=== PATIENT | female | born 1980 | race Caucasian/White ===

== ENCOUNTER 2023-12-12 10:52 | Outpatient (OUT) | payer OTHER, SELFPAY ==
--- NOTE | 2023-12-12 11:10 | ECG_ITS ---
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
--- NOTE | 2023-12-12 11:20 | PM.PRESUREVA ---
History of Present Illness History of Present Illness Chief complaint: Menorrhagia, thickened endometrium Narrative: Patient presents for preadmission testing. The patient states she has a history of painful heavy periods. She had an ultrasound which showed a thickened uterus. The patient states that she has a history of hypertension after child , but has not been medicated in over 10 years. Review of Systems ROS Narrative REVIEW OF SYSTEMS: Negative except as stated in HPI, ten or more systems reviewed. Constitutional: No fever, chills, weakness ENT: No sore throat or epistaxis Cardiovascular: No edema, chest pain, palpitations, or activity intolerance Respiratory: No shortness of breath, cough, or wheezing Musculoskeletal: No joint pain or swelling Gastrointestinal: No abdominal pain, constipation, diarrhea, or vomiting Genitourinary: No dysuria or hematuria Neurological: No numbness, tingling, weakness, or headache Psychiatric: No mood changes [facility] History (Updated 12/12/23 @ 11:10 by Claribel Lema NP) COVID-19 ?U07.1 - COVID-19 (ICD-10) Vertigo ?R42 - Dizziness and giddiness (ICD-10) Migraine ?G43.909 - Migraine, unspecified, not intractable, without status migrainosus (ICD-10) Hypertension ?I10 - Essential (primary) hypertension (ICD-10) Postoperative nausea and vomiting ?R11.2 - Nausea with vomiting, unspecified (ICD-10) ?Z98.890 - Other specified postprocedural states (ICD-10) Thickened endometrium ?R93.89 - Abnormal findings on diagnostic imaging of other specified body structures (ICD-10) Menorrhagia ?N92.0 - Excessive and frequent menstruation with regular cycle (ICD-10) Iron deficiency anemia ?D50.9 - Iron deficiency anemia, unspecified (ICD-10) RLS (restless legs syndrome) ?G25.81 - Restless legs syndrome (ICD-10) Shoulder pain ?M25.519 - Pain in unspecified shoulder (ICD-10) Surgical History (Updated 12/12/23 @ 11:10 by Claribel Lema NP) History of tonsillectomy and adenoidectomy ?Z90.89 - Acquired absence of other organs (ICD-10) H/O tubal ligation ?Z98.51 - Tubal ligation status (ICD-10) H/O laparoscopy ?Z98.890 - Other specified postprocedural states (ICD-10) S/P arthroscopic knee surgery ?Z98.890 - Other specified postprocedural states (ICD-10) H/O arthroscopy of shoulder ?Z98.890 - Other specified postprocedural states (ICD-10) Family History (Updated 12/12/23 @ 11:10 by Claribel Lema NP) Other Family history of Alzheimer's disease Family history of diabetes mellitus Family history of hypertension Social History (Updated 12/12/23 @ 11:06 by Claribel Lema NP) Within the past year, how often did you have a drink containing alcohol: never Score interpretation: A score less than 3 is consistent with normal alcohol consumption. 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 Highest level of school completed/degree received: some college, no degree Meds Home Medications and Allergies Allergies Allergy/AdvReac Type Severity Reaction Status Date / Time cefaclor Allergy Rash Verified 12/12/23 11:04 Exam Narrative Exam Narrative: Constitutional: Awake, alert, comfortable, well-appearing, nontoxic, interactive, vital signs as charted Head: Normocephalic, atraumatic Neck: Supple, normal appearance, normal range of motion, no meningeal signs, no lymphadenopathy Respiratory: No respiratory distress, breath sounds clear Cardiovascular: Regular rate and rhythm, strong and regular heart tones Abdomen: Nontender, normal bowel sounds, soft, no CVA tenderness Musculoskeletal: Normal gait, no swelling or edema Skin: No rashes or induration, no lesions, only visible skin inspected Neuro: No neurological deficits, normal sensation Psychiatric: Oriented ?3, normal affect Assessment and Plan Assessment and Plan (1) Thickened endometrium: (2) Menorrhagia: Plan D&C, hysteroscopy, possible MyoSure scheduled with Dr. Nieto December 22, 2023.
== END 2023-12-12 10:53 | disposition home or self-care (01) ==
LOC: PST 10:54
PROVIDERS: PCP Family Medicine; Visit Provider Obstetrics & Gynecology
DX: Z01.810 Encounter for preprocedural cardiovascular examination (principal); Z01.818 Encounter for other preprocedural examination; N92.0 Excessive and frequent menstruation with regular cycle; R93.89 Abnormal findings on diagnostic imaging of other specified body structures
CPT/HCPCS: 93005; G0463

== ENCOUNTER 2023-12-22 08:30 | Day surgery (SDC) | payer OTHER, SELFPAY ==
[2023-12-12 11:18] VITALS: BP 144/102; PULSE 91; TEMP 36.4; O2SAT 100; BMI 30.2
[2023-12-22] VITALS (8 sets, daily range): BP systolic 130–153; BP diastolic 64–100; PULSE 64–95; TEMP 36.3–37.1; O2SAT 99–100; BMI 29.8
--- OUTSIDE RECORDS SUMMARY | 2023-12-22 08:34 | XMS_ITS | CCD ---
Author Organization [facility] CliniSyri Care Team Providers Care Ship Pilot Dispatcher Name Role Phone Gretta Villatoro Admitting Unavailable Gretta Villatoro Attending Unavailable NO, DR JERMAIN Gonzalez Admitting Unavailable NO, DR JERMAIN Gonzalez Attending Unavailable NO, DR JERMAIN Gonzalez Primary Care Unavailable NO, DR JERMAIN Gonzalez Consulting Perico Sarabia MD, Jermain Primary Care Provider JERMAIN SARABIA Referring Unavailable JERMAIN SARABIA Primary Care Unavailable DEVYN WARD Attending Unavailable HILLARY GAO Referring Unavailable TAMMY GOULD Attending Unavailable SANJEEV ARCOS Attending Unavailable TAMMY GOULD Referring Unavailable DEVYN WARD Attending Unavailable TAMMY GOULD Referring Unavailable DEVYN WARD Attending Unavailable GAOHILLARY URRUTIA Referring Unavailable GAOHILLARY URRUTIA Attending Unavailable SANJEEV ARCOS Attending Unavailable TAMMY GOULD Referring Unavailable RANJANA, TAMMY Tomas Attending Unavailable JERMAIN SARABIA Attending Unavailable NO, JERMAIN Referring Unavailable GAO, HILLARY Bynum Referring Unavailable GABRIELLE JOHNSON Attending Unavailable GABRIELLE JOHNSON Referring Unavailable ELIZABETH, GABRIELLE Salinas Attending Unavailable JERMAIN SARABIA Referring Unavailable VINEET KHAN Attending Unavailable GABRIELLE JOHNSON Referring Unavailable VINEET KHAN Attending Unavailable JR. FABIAN GEORGE C Attending Unavaila ble TAMMY GOULD Attending Unavailable Allergies Allergy Classification Reported Allergen(s) Allergy Type Date of Onset Reaction(s) Facility (5 sources) Cefaclor; Translations: [CEFACLOR] Drug Allergy 09-06-2016 Rash, Unknown [facility] Work Phone: Problems Active Problems Problem Classification Problem Date Documented Date Episodic/Chronic Deficiency and other anemia (1 source) Iron deficiency anemia secondary to blood loss (chronic); Translations: [Iron deficiency anemia secondary to blood loss (chronic)] Onset: 08-18-2023 Chronic Other non-traumatic joint disorders (6 sources) Stiffness of left shoulder; Translations: [Stiffness of left shoulder, not elsewhere classified] Onset: 06-15-2023 06-15-2023 Episodic Residual codes; unclassified (6 sources) History of arthroscopic procedure on shoulder; Translations: [Other specified postprocedural states] Onset: 06-15-2023 06-15-2023 Episodic Unclassified (1 source) M25.572 - Pain in left ankle and joints of left foot; Translations: [M25.572 - Pain in left ankle and joints of left foot] Onset: 09-12-2018 Past or Other Problems Problem Classification Problem Date Documented Da te Episodic/Chronic Other non-traumatic joint disorders (6 sources) Pain in left shoulder; Translations: [Pain in joint, shoulder region] Onset: 03-01-2023 06-15-2023 Episodic Other non-traumatic joint disorders (5 sources) Disorder of shoulder; Translations: [Other specified joint disorders, left shoulder] Onset: 03-01-2023 Resolved: 06-15-2023 06-15-2023 Episodic Results Test Name Value Interpretation Reference Range Facility US PELVIS TRANSVAGINALon US PELVIS TRANSVAGINAL FINDINGS: Uterus 9.4 x 8.2 x 6.2 cm Endometrium 35 mm see below Right Ovary not seen Left Ovary not seen Mild uterine anteversion. Patches of heterogeneous echotexture throughout the myometrium, no focal mass. Abnormal endometrial thickening, 35 mm with heterogeneous hypoechogenic areas within centrally located within the endometrium, fundal region. No pelvic fluid. Neither ovary visualized. IMPRESSION: Abnormal endometrial morphology and thickness, benign and malignant etiologies are to be considered. TRANSCRIBED BY: ELECTRONICALLY SIGNED BY: Jae Atwood MD Normal Not Available CBC AND AUTO DIFFon 08-18-19 24 ABSOLUTE BASOPHIL 0.0 X10E9/L Normal 0.0-0.2 [facility] Comment on above: Performed By: #### C BCA #### [facility] ([id number]) [address], [address] [place] [address] ABSOLUTE NEUTROPHIL 3.5 X10E9/L Normal 1.5-6.6 [facility] Comment on above: Performed By: #### C BCA #### [facility] ([id number]) [address], [address] [place] [address] Basophils/100 WBC (Bld) 0.9 % Normal [facility] Comment on above: Performed By: #### C BCA #### [facility] ([id number]) [address], [address] [place] [address] Eosinophils (Bld) [#/Vol] 0.1 10*3/uL Normal 0.0-0.4 [facility] Comment on above: Performed By: #### C BCA #### [facility] ([id number]) [address], [address] [place] [address] Eosinophils/100 WBC (Bld) 1.7 % Normal [facility] Comment on above: Performed By: #### C BCA #### [facility] ([id number]) [address], [address] [place] [address] Erythrocyte distribution width (RBC) [Ratio] 17.5 % High 11.5-15.0 [facility] Comment on above: Performed By: #### C BCA #### [facility] ([id number]) [address] [place] [address] Hematocrit (Bld) [Volume fraction] 27.0 % Low 35-47 [facility] Comment on above: Performed By: #### C BCA #### [facility] ([id number]) [address], [address] [place] [address] Hemoglobin (Bld) [Mass/Vol] 8.0 g/dL Low 11.7-15.5 [facility] Comment on above: Performed By: #### C BCA #### [facility] ([id number]) [address], [address] [place] [address] Lymphocytes (Bld) [#/Vol] 1.1 10*3/uL Normal 1.0-3.5 [facility] Comment on above: Performed By: #### C BCA #### [facility] ([id number]) [address], [address] [place] [address] Lymphocytes/100 WBC (Bld) 21.3 % Normal [facility] Comment on above: Performed By: #### C BCA #### [facility] ([id number]) [address] [place] [address] MCH (RBC) [Entitic mass] 18.7 pg Low 27-34 [facility] Comment on above: Performed By: #### C BCA #### [facility] ([id number]) [address], [address] [place] [address] MCHC (RBC) [Mass/Vol] 29.6 g/dL Low 32-36 [facility] Comment on above: Performed By: #### C BCA #### [facility] ([id number]) [address] [place] [address] MCV (RBC) [Entitic vol] 63 fL Low 80-100 [facility] Comment on above: Performed By: #### C BCA #### [facility] ([id number]) [address] [place] [address] Monocytes (Bld) [#/Vol] 0.3 10*3/uL Normal 0-0.9 [facility] Comment on above: Performed By: #### C BCA #### [facility] ([id number]) [address], [address] [place] [address] Monocytes/100 WBC (Bld) 6.5 % Normal [facility] Comment on above: Performed By: #### C BCA #### [facility] ([id number]) [address], [address] [place] [address] Neutrophils/100 WBC (Bld) 69.6 % Normal [facility] Comment on above: Performed By: #### C BCA #### [facility] ([id number]) [address], [address] [place] [address] OVALOCYTE 1+ Abnormal NONE [facility] Comment on above: Performed By: #### C BCA #### [facility] ([id number]) [address], [address] [place] [address] Platelet mean volume (Bld) [Entitic vol] 8.7 fL Normal 7-12 [facility] Comment on above: Performed By: #### C BCA #### [facility] ([id number]) [address] [place] [address] Platelets (Bld) [#/Vol] 237 10*3/uL Normal 150-450 [facility] Comment on above: Performed By: #### C BCA #### [facility] ([id number]) [address] [place] [address] POLYCHROMASIA 1+ Abnormal NONE [facility] Comment on above: Performed By: #### C BCA #### [facility] ([id number]) [address] [place] [address] RBC COUNT 4.29 X10E12/L Normal 3.80-5.20 [facility] Comment on above: Performed By: #### C BCA #### [facility] ([id number]) [address] [address] [place] [address] WBC (Bld) [#/Vol] 5.1 10*3/uL Normal 4.0-11.0 [facility] Comment on above: Performed By: #### C BCA #### [facility] ([id number]) [address] [place] [address] XR SACRUM COCCYX 2+ VIEWSon 08-18-2023 XR SACRUM COCCYX 2+ VIEWS EXAMINATION: Sacrum/coccyx HISTORY: Pain. No history of trauma reported. COMPARISON: None TECHNIQUE: 3 views are submitted. The SI joints are intact. There is a mild degenerative change of the lower sacral vertebrae. Sacrum/coccyx show no focal bony abnormality. No acute fracture. IMPRESSION: MILD OSTEOARTHRITIS LOWER SACRAL VERTEBRA. NO ACUTE FRACTURE ELECTRONICALLY SIGNED BY: Remy Montalvo MD Normal Not Available BI MAMMOGRAM SCREENING TOMOS YNTHESIS BILATERALon 04-14-2023 BI MAMMOGRAM SCREENING TOMOSYNTHESIS BILATERAL This is a summary report. The complete report is available in the patient's medical record. If you cannot access the medical record, please contact the sending organization for a detailed fax or copy. EXAMINATION: BI MAMMOGRAM SCREENING TOMOSYNTHESIS BILATERAL CLINICAL HISTORY: Screening for Breast cancer COMPARISON: There are no previous mammograms available for comparison. RESULT: Digital mammography and 3D tomosynthesis of bilateral breasts was performed. There are scattered areas of fibroglandular density. There is no suspicious mass, asymmetry, architectural distortion, or calcification. IMPRESSION: BIRADS 1 - Negative Follow-up: Routine Screening Mamm . Board Certified Radiologists. Accredited by the ACR and FDA. MAMMOGRAPHY IS VERY IMPORTANT TO YOUR HEALTH. THE [place] [employer] GUIDELINES RECOMMEND THAT WOMEN 40 YEARS OF AGE AND OLDER SHOULD HAVE A MAMMOGRAM EVERY YEAR. A REMINDER LETTER WILL BE SENT AT THE APPROPRIATE TIME. THIS FACILITY UTILIZES A REMINDER SYSTEM TO ENSURE ALL PATIENTS RECEIVE REMINDER NOTIFICATIONS AT THE APPROPRIATE TIME BASED ON THE RECOMMENDATIONS OF THIS EXAM. THIS INCLUDES REMINDERS FOR ROUTINE SCREENING MAMMOGRAMS, DIAGNOSTIC MAMMOGRAMS IN WHICH THE PATIENT IS ASKED TO RETURN FOR ADDITIONAL VIEWS, OR OTHER BREAST IMAGING INTERVENTIONS WHEN APPROPRIATE. THE PATIENT WILL BE PLACED IN THE APPROPRIATE REMINDER SYSTEM INCLUDING A REMINDER AT THE APPROPRIATE TIME FOR ANY PENDING ADDITIONAL VIEWS. TRANSCRIBED BY: ELECTRONICALLY SIGNED BY: Jae Atwood MD Normal Not Available MR SHOULDER LEFT WO IV CONTR Artem 04-12-2023 MR SHOULDER LEFT WO IV CONTRAST EXAM: MR SHOULDER LEFT WO IV CONTRAST HISTORY: Chronic left shoulder pain TECHNIQUE: Multiplanar multisequence MRI of the shoulder was performed Without contrast. COMPARISON: Shoulder radiographs February 08, 2023 FINDINGS: The acromioclavicular joint is intact. The acromion is curved. Coracoclavicular ligament intact. No subacromial/subdeltoid bursal fluid. The supraspinatus, infraspinatus, subscapularis, and teres minor tendons are intact. A 9 mm hypointense focus along the distal posterior fibers of supraspinatus tendon corresponds to a calcification seen on prior radiographs. No adjacent soft tissue edema. No atrophy or fatty infiltration of the rotator cuff musculature. The intra-articular and extra-articular long head biceps tendon is intact. The biceps tendon resides within the bicipital groove. No labral tear identified. No well-defined or measurable cartilage defect. No glenohumeral joint effusion . IMPRESSION: Rotator cuff and labrum are intact. There is a 9 mm calcification projects along the distal posterior fibers of supraspinatus tendon, a finding that can be seen with calcific tendinitis in the appropriate clinical setting however there is no adjacent soft tissue edema or bursal effusion. ELECTRONICALLY SIGNED BY: Avery Lawrence, DO Normal Not Available Comment on above: Order Comment: ORBIT S IF NEEDED PATIENT REQUESTS [facility] CBC AUTO DIFFon 08-03-2021 BASO # 0.0 103/ul Normal 0.0-0.1 [facility] Comment on above: Performed By: #### C BC #### [facility] [address] [place] [address] Dr. Dee Tafoya Basophils/100 WBC (Bld) 0.5 % Normal 0.2-2.0 [facility] Comment on above: Performed By: #### C BC #### [facility] [address] [place] [address] Dr. Dee Tafoya EO # 0.1 103/ul Normal 0.0-0.7 [facility] Comment on above: Performed By: #### C BC #### [facility] [address] [place] [address] Dr. Dee Tafoya Eosinophils/100 WBC (Bld) 0.9 % Normal 0.9-7.0 [facility] Comment on above: Performed By: #### C BC #### [facility] [address] [place] [address] Dr. Dee Tafoya Erythrocyte distribution width (RBC) [Ratio] 15.9 % Critically high 11.0-15.0 [facility] Comment on above: Performed By: #### C BC #### [facility] [address] [address] [address] Dee Tafoya Hematocrit (Bld) [Volume fraction] 30.0 % Critically low 36.0-48.0 [facility] Comment on above: Performed By: #### C BC #### [facility] [address] [address] [address] Dee Tafoya Hemoglobin (Bld) [Mass/Vol] 8.7 g/dL Critically low 12.0-16.0 [facility] Comment on above: Performed By: #### C BC #### [facility] [address] [address] [address] Dee Tafoya IG # 0.02 10e3/ul Normal 0.00-0.03 [facility] Comment on above: Performed By: #### C BC #### [facility] [address] [place] [address] Dr. Dee Tafoya IG % 0.3 % Normal 0.0-0.5 [facility] Comment on above: Performed By: #### C BC #### [facility] [address] [place] [address] Dr. Dee Tafoya LYMPH # 1.1 103/ul Critically low 1.2-3.8 [facility] Comment on above: Performed By: #### C BC #### [facility] [address] [place] [address] Dr. Dee Tafoya Lymphocytes/100 WBC (Bld) 16.8 % Critically low 20.5-60.0 [facility] Comment on above: Performed By: #### C BC #### [facility] [address] [place] [address] Dr. Dee Tafoay MANUAL DIFF REQ NO Normal [facility] Comment on above: Performed By: #### C BC #### [facility] [address] [place] [address] Dr. Dee Tafoya MCH (RBC) [Entitic mass] 20.3 pg Critically low 26.7-34.0 [facility] Comment on above: Performed By: #### C BC #### [facility] [address] [place] [address] Dr. Dee Tafoya MCHC (RBC) [Mass/Vol] 29.0 g/dL Critically low 29.9-35.2 [facility] Comment on above: Performed By: #### C BC #### [facility] [address] [address] [address] Dee Tafoya MCV (RBC) [Entitic vol] 69.9 fL Critically low 81.0-99.0 [facility] Comment on above: Performed By: #### C BC #### [facility] [address] [address] [address] Dee Tafoya MONO # 0.3 103/ul Normal 0.3-0.8 [facility] Comment on above: Performed By: #### C BC #### [facility] [address] [address] [address] Dee Tafoya Monocytes/100 WBC (Bld) 5.2 % Normal 1.7-12.0 [facility] Comment on above: Performed By: #### C BC #### [facility] [address] [place] [address] Dr. Dee Tafoya NEUT # 4.9 103/ul Normal 1.4-6.5 [facility] Comment on above: Performed By: #### C BC #### [facility] [address] [address] [address] Dee Tafoya Neutrophils/100 WBC (Bld) 76.3 % Critically high 43.0-75.0 [facility] Comment on above: Performed By: #### C BC #### [facility] [address] [address] [address] Dee Tafoya Platelet mean volume (Bld) [Entitic vol] 10.2 fL Normal 9.5-13.5 [facility] Comment on above: Performed By: #### C BC #### [facility] [address] [place] [address] Dr. Dee Tafoya PLT 267 103/ul Normal 150-450 [facility] Comment on above: Performed By: #### C BC #### [facility] [address] [address] [address] Dee Tafoya RBC 4.29 106/ul Normal 4.20-5.40 [facility] Comment on above: Performed By: #### C BC #### [facility] [address] [address] [address] Dee Tafoya WBC 6.4 103/ul Normal 4.0-11.0 [facility] Comment on above: Performed By: #### C BC #### [facility] [address] [address] [address] Dee Tafoya GLYCOHEMOGLOBIN A1Con 2021 ADA RECOMMENDATION ADA THERAPEUTIC TARG ET 6.0 - 7.0 ACTION SUGGESTED > 7.0 Normal [facility] Comment on above: Performed By: #### A 1C #### [facility] [address] [place] [address] Dr. Dee Tafoya Glucose [Mass/Vol] 100 mg/dL Normal [facility] Comment on above: Performed By: #### A 1C #### [facility] [address] [address] [address] Dee Tafoya HbA1c (Bld) [Mass fraction] 5.1 % Normal <=6.0 [facility] Comment on above: Performed By: #### A 1C #### [facility] [address] [place] [address] Dr. Dee Tafoya LIPID PROFILEon 08-03-2021 CHOL-HDL RATIO NORM SEE BELOW Normal [facility] Comment on above: Result Comment: 3.3 - 4.4 LOW RISK 4.4 - 7.1 AVERAGE RISK 7.1 - 11.0 MODERATE RISK >11.0 HIGH RISK Performed By: #### L IPID, LIVER, TSH, BMP #### [facility] [address] [address] [address] Dee Tafoya Cholesterol [Mass/Vol] 151 mg/dL Normal <=200 [facility] Comment on above: Performed By: #### L IPID, LIVER, TSH, BMP #### [facility] [address] [address] [address] Dee Tafoya Cholesterol in HDL [Mass/Vol] 43 mg/dL Normal 40-60 [facility] Comment on above: Performed By: #### L IPID, LIVER, TSH, BMP #### [facility] [address] [address] [address] Dee Tafoya Cholesterol in LDL [Mass/Vol] 90.2 mg/dL Normal [facility] Comment on above: Performed By: #### L IPID, LIVER, TSH, BMP #### [facility] [address] [address] [address] Dee Tafoya Cholesterol.total/Ch olesterol in HDL [Mass ratio] 3.5 {ratio} Normal [facility] Comment on above: Performed By: #### L IPID, LIVER, TSH, BMP #### [facility] [address] [address] [address] Dee Tafoya HDL NORMAL > or = 60 mg/dl - LO W CARDIOVASCULAR RISK <40 mg/dl - HIGH CARDIOVASCULAR RISK Normal [facility] Comment on above: Performed By: #### L IPID, LIVER, TSH, BMP #### [facility] [address] [address] [address] Dee Tafoya LDL CALC NORMAL SEE BELOW Normal [facility] Comment on above: Result Comment: <100 mg/dl OPTIMAL 100 - 129 mg/dl NEAR OR ABOVE OPTIMAL 130 - 159 mg/dl BORDERLINE HIGH 160 - 189 mg/dl HIGH >190 mg/dl VERY HIGH Performed By: #### L IPID, LIVER, TSH, BMP #### [facility] [address] [address] [address] Dee Tafoya Triglyceride [Mass/Vol] 89 mg/dL Normal <=150 [facility] Comment on above: Performed By: #### L IPID, LIVER, TSH, BMP #### [facility] [address] [address] [address] Dee Tafoya VLDL CALC 17.8 mg/dL Normal [facility] Comment on above: Performed By: #### L IPID, LIVER, TSH, BMP #### [facility] [address] [address] [address] Dee Tafoya LIVER PROFILEon 08-03-2021 Albumin [Mass/Vol] 4.0 g/dL Normal 3.4-5.0 [facility] Comment on above: Performed By: #### L IPID, LIVER, TSH, BMP #### [facility] [address] [place] [address] Dr. Dee Tafoya Albumin/Globulin [Mass ratio] 1.1 {ratio} Normal [facility] Comment on above: Performed By: #### L IPID, LIVER, TSH, BMP #### [facility] [address] [place] [address] Dr. Dee Tafoya ALP [Catalytic activity/Vol] 65 U/L Normal 46-116 [facility] Comment on above: Performed By: #### L IPID, LIVER, TSH, BMP #### [facility] [address] [place] [address] Dr. Dee Tafoya ALT [Catalytic activity/Vol] 19 U/L Normal 14-59 [facility] Comment on above: Performed By: #### L IPID, LIVER, TSH, BMP #### [facility] [address] [place] [address] Dr. Dee Tafoya AST [Catalytic activity/Vol] 14 U/L Critically low 15-37 [facility] Comment on above: Performed By: #### L IPID, LIVER, TSH, BMP #### [facility] [address] [place] [address] Dr. Dee Tafoya BILI, CONJUGATED 0.1 mg/dL Normal 0.0-0.3 [facility] Comment on above: Performed By: #### L IPID, LIVER, TSH, BMP #### [facility] [address] [place] [address] Dr. Dee Tafoya Bilirubin [Mass/Vol] 0.5 mg/dL Normal 0.2-1.3 [facility] Comment on above: Performed By: #### L IPID, LIVER, TSH, BMP #### [facility] [address] [place] [address] Dr. Dee Tafoya Globulin (S) [Mass/Vol] 3.6 g/dL Normal [facility] Comment on above: Performed By: #### L IPID, LIVER, TSH, BMP #### [facility] [address] [address] [address] Dee Tafoya Protein [Mass/Vol] 7.6 g/dL Normal 6.1-8.2 [facility] Comment on above: Performed By: #### L IPID, LIVER, TSH, BMP #### [facility] [address] [place] [address] Dr. Dee Tafoya PROF CHEM 8 (BAS METB)on Anion gap [Moles/Vol] 13.3 mmol/L Normal [facility] Comment on above: Performed By: #### L IPID, LIVER, TSH, BMP #### [facility] [address] [place] [address] Dr. Dee Tafoya Calcium [Mass/Vol] 8.3 mg/dL Critically low 8.5-10.1 [facility] Comment on above: Performed By: #### L IPID, LIVER, TSH, BMP #### [facility] [address] [address] [address] Dee Tafoya Chloride [Moles/Vol] 105 mmol/L Normal 98-107 [facility] Comment on above: Performed By: #### L IPID, LIVER, TSH, BMP #### [facility] [address] [place] [address] Dr. Dee Tafoya CO2 [Moles/Vol] 24.8 mmol/L Normal 22.0-30.0 [facility] Comment on above: Performed By: #### L IPID, LIVER, TSH, BMP #### [facility] [address] [place] [address] Dr. Dee Tafoya Creatinine [Mass/Vol] 0.67 mg/dL Normal 0.52-1.04 [facility] Comment on above: Performed By: #### L IPID, LIVER, TSH, BMP #### [facility] [address] [place] [address] Dr. Dee Tafoya EGFR-AF [place] >60 Normal >=60 [facility] Comment on above: Performed By: #### L IPID, LIVER, TSH, BMP #### [facility] [address] [address] [address] Dee Tafoya EGFR-NON AF [place] >60 Normal >=60 [facility] Comment on above: Performed By: #### L IPID, LIVER, TSH, BMP #### [facility] [address] [address] [address] Dee Tafoya Glucose [Mass/Vol] 95 mg/dL Normal 74-106 [facility] Comment on above: Performed By: #### L IPID, LIVER, TSH, BMP #### [facility] [address] [address] [address] Dee Tafoya Potassium [Moles/Vol] 4.1 mmol/L Normal 3.4-5.0 [facility] Comment on above: Performed By: #### L IPID, LIVER, TSH, BMP #### [facility] [address] [address] [address] Dee Tafoya Sodium [Moles/Vol] 139 mmol/L Normal 137-145 [facility] Comment on above: Performed By: #### L IPID, LIVER, TSH, BMP #### [facility] [address] [address] [address] Dee Tafoya Urea nitrogen [Mass/Vol] 12.0 mg/dL Normal 7.0-18.0 [facility] Comment on above: Performed By: #### L IPID, LIVER, TSH, BMP #### [facility] [address] [address] [address] Dee Tafoya Urea nitrogen/Creatinine [Mass ratio] 17.9 mg/mg Normal [facility] Comment on above: Performed By: #### L IPID, LIVER, TSH, BMP #### [facility] [address] [address] [address] Dee Tafoya TSHon 08-03-2021 TSH 0.679 uIU/mL Normal 0.470-4.680 [facility] Comment on above: Performed By: #### L IPID, LIVER, TSH, BMP #### [facility] [address] [address] [address] Dee Tafoya TSH RANGE SEE BELOW Normal [facility] Comment on above: Result Comment: <0.3 4 UIU/ml HYPERTHYROID 0.34-5.60 UIU/ml EUTHYROID >5.60 UIU/ml HYPOTHYROID Performed By: #### L IPID, LIVER, TSH, BMP #### [facility] [address] [address] [address] Dee Tafoya XR ankle LT min 3V*on 2018 XR ankle LT min 3V* [facility] [place] [address] [place] [address] XRay Report Signed Patient: Corrina Durand MR#: [id number] : 1980 Acct:[id number] Age/Sex: 38 / F ADM Date: 09/12/18 Loc: XDUCLY Room: Type: [facility] Attending Dr: Gretta Villatoro NP Ordering Provider: Gretta Villatoro NP Date of Service: 09/12/18 XR/XR ankle LT min 3V*: M25.572 Copies to: Gretta Villatoro NP LEFT ANKLE - 3 views CLINICAL DATA: Patient stepped over a baby gate and rolled left ankle today. Lateral pain COMPARISON: None AP, lateral and oblique views were obtained. There is no evidence of fracture or dislocation. The talar dome is intact. There is mild anterolateral soft tissue swelling. XR/XR ankle LT min 3V* IMPRESSION: NO ACUTE BONY INJURY. Impression dictated by: Yolanda Pichardo M.D.09/12/2018 4:12 PM Dictation Location: [facility] Transcribed By: KINJAL 09/12/18 1612 Dictated By: Yolanda Pichardo MD 09/12/18 1610 Signed By: 09/12/18 1612 [facility] Encounters Encounter Date Encounter Type Care Provider Facility Start: 11-22-2023 End: 11-22-2023 ambulatory VINEET BILL Not Available Start: 10-23-2023 End: 10-23-2023 ambulatory VINEET BILL Not Available Start: 10-03-2023 End: 10-03-2023 ambulatory GABRIELLE L LEOLAO Not Available Start: 09-22-2023 End: 09-22-2023 ambulatory GABRIELLE Rita BHAGATO Not Available Start: 09-20-2023 End: 09-20-2023 ambulatory GABRIELLE Rita BHAGATO Not Available Start: 08-18-2023 End: 08-19-2023 ambulatory JERMAIN SANDERSR [facility] Start: 08-17-2023 End: 08-17-2023 ambulatory JERMAIN SARABIA Not Available Start: 07-07-2023 Chart abstracting Tammy sanchez PA Work Phone: [facility] Start: 07-07-2023 End: 07-07-2023 ambulatory TAMMY GOULD Not Available Start: 07-06-2023 End: 07-06-2023 ambulatory SANJEEV ARCOS Not Available Start: 06-22-2023 Bamboo flowsheet Devyn Wrig ht 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 Work Phone: [facility] Start: 06-22-2023 Bamboo flowsheet Devyn Wrig ht 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 Work Phone: [facility] Start: 06-22-2023 End: 06-22-2023 ambulatory Devyn Ward 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 Work Phone: [facility] Comment on above: Left shoulder pain, unspecified chronicity (Primary Dx); Shoulder stiffness, left; Status post arthroscopy of left shoulder; Impingement of left shoulder Start: 06-15-2023 End: 06-15-2023 ambulatory Sanjeev Arcos PT Work Phone: [facility] Comment on above: Left shoulder pain, unspecified chronicity (Primary Dx); Shoulder stiffness, left; Status post arthroscopy of left shoulder Start: 06-09-2023 End: 06-09-2023 ambulatory TAMMY GOULD Not Available Start: 05-02-2023 End: 05-02-2023 ambulatory TAMMY GOULD Not Available Start: 04-19-2023 End: 04-19-2023 ambulatory ROBBIN HUGHES Not Available Start: 04-14-2023 End: 04-14-2023 ambulatory JERMAIN KANUSIA Not Available Start: 04-12-2023 End: 04-12-2023 ambulatory HILLARY GAO Not Available Start: 04-03-2023 End: 04-03-2023 ambulatory HILLARY GAO Not Available Start: 03-31-2023 End: 03-31-2023 ambulatory DEVYN WARD Not Available Start: 03-28-2023 End: 03-28-2023 ambulatory DEVYN WARD Not Available Start: 08-09-2021 Encounter for genera l adult medical examination without abnormal findings DR JERMAIN SARABIA [facility] Start: 08-03-2021 End: 08-04-[address] JERMAIN SARABIA Facility:[facility] Start: 08-03-2021 End: 08-04-2021 Encounter for general adult medical examination without abnormal findings DR JERMAIN SARABIA Facility:[facility] Start: 09-12-2018 End: 09-12-2018 Patient encounter procedure Gretta Villatoro Facility:[facility] Procedures Date Procedure Procedure Detail Performing Clinician Start: 04-14-2023 Mammography Sanjeev franco PT Work Phone: Plan of Treatment Date Care Activity Detail Author Start: 04-14-2024 Screening for malign ant neoplasm of breast Mammogram [facility] Start: 07-07-2023 End: 07-07-2023 Patient encounter procedure 07/07/2023 10:15 AM EST Office Visit [facility] [address] [facility] [address] [place] [address] Tammy Gould, PA [address] [facility] [address] [place] [address] [facility] Start: 07-06-2023 End: 07-06-2023 ambulatory 07/06/2023 12:00 PM EST Treatment [facility] [address] [place] [phone] Sanjeev Arcos, PT [address] [place], [place] [id number] [facility] Start: 06-29-2023 End: 06-29-2023 ambulatory 06/29/2023 1:00 PM EST Treatment [facility] [address] [place] [phone] 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, 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 [address] [place] [address] [facility] Start: 06-22-2023 End: 06-22-2023 ambulatory [facility] Comment on above: Arrived Start: 01-13-2023 Influenza vaccination Influenza Vacc ine (#1) [facility] Start: 01-31-2010 Screening for malign ant neoplasm of cervix [facility] Start: 01-31-2001 Screening for malign ant neoplasm of cervix Pap Smear [facility] Immunizations Immunization Date Immunization Notes Care Provider Fa cility 02-06-2018 influenza virus vacc ine, unspecified formulation Sanjeev Arcos PT Work Phone: [facility] Payers Date Payer Category Payer Private Health Insurance [id number] 2018 Self-pay 2015 Managed Care HMO (unspecified) [employer]ET[employer] AET[employer] [id number] 2015-Present [address] [place] [address] HMO [id number] 1980 Unknown [id number] 2.16.840.1.168502.3.579.2 .593 1980 Unknown [id number] 2.16.840.1.540164.3.579.2 .1286 1980 Unknown [id number] 2.16.840.1.972355.3.579.2 .1259 1980 Unknown [id number] 2.16.840.1.322730.3.579.2 .1258 1980 Unknown [id number] 2.16.840.1.387570.3.579.2 .1259 1980 Unknown [id number] 2.16.840.1.818399.3.579.2 .1259 1980 Unknown [id number] 2.16.840.1.471473.3.579.2 .1258 1980 Unknown [id number] 2.16.840.1.029994.3.579.2 .1258 1980 Unknown [id number] 2.16.840.1.800344.3.579.2 .1258 1980 Unknown [id number] 2.16.840.1.297250.3.579.2 .1258 1980 Unknown [id number] 2.16.840.1.422570.3.579.2 .1258 1980 Unknown [id number] 2.16.840.1.339810.3.579.2 .1258 1980 Unknown [id number] 2.16.840.1.660343.3.579.2 .1258 1980 Unknown [id number] 2.16.840.1.313599.3.579.2 .1258 1980 Unknown [id number] 2.16.840.1.955509.3.579.2 .1258 1980 Unknown [id number] 2.16.840.1.188370.3.579.2 .1258 1980 Unknown [id number] 2.16.840.1.920924.3.579.2 .1258 1980 Unknown [id number] 2.16.840.1.569324.3.579.2 .1258 1980 Unknown [id number] 2.16.840.1.368019.3.579.2 .1258 1980 Unknown [id number] 2.16.840.1.944273.3.579.2 .1258 1980 Unknown [id number] 2.16.840.1.427254.3.579.2 .9 1959 Private Health Insurance [id number] Unknown [id number] 2.16.840.1.209540.3.579.2 .531 Social History Date Type Detail Facility Start: 05-26-2023 Tobacco smoking stat us [facility]IS Ex-smoker [facility] History of tobacco use Current smoker [facility] History of tobacco use Cigarette Smoker [facility] Start: 05-26-2023 Tobacco use and exposure Smokeless t obacco non-user [facility] Start: 06-09-2023 End: 06-25-2023 Alcohol intake Current drinker of alcohol (finding) [facility] Start: 05-26-2023 History of Social function [facility] Start: 05-26-2023 Tobacco use panel [facility] Start: 03-03-2023 Alcohol Comment drinks alcohol 2-4 times a month [facility] Start: 1980 Sex Assigned At Not on file [facility] Start: 07-27-2022 Gender identity Identifies as female gender (finding) [facility] Evaluation note Note Date & Type Note Facility Evaluation note Diagnosis Left shoulder pain, unspecified chronicity- Primary Shoulder stiffness, left Status post arthroscopy of left shoulder documented in this encounter [facility] Evaluation note Note Date & Type Note Facility Evaluation note Diagnosis Left shoulder pain, unspecified chronicity- Primary Shoulder stiffness, left Status post arthroscopy of left shoulder Impingement of left shoulder documented in this encounter [facility] Reason for visit Narrative Consultation (Routine) - Authorized Note Date & Type Note Facility Reason for visit Narrative Specialty Diagnoses / Procedures Referred By Georgina bynum Referred To Contact Physical Therapy Diagnoses S/P arthroscopy of left shoulder Procedures [place] OFFICE/OUTPATIENT NEW HIGH MDM 60 MINUTES Tammy Gould, PA [address] [facility] [address] [place] [address] Sanjeev Arcos, PT [address] [place] [address] Referral ID Status Reason Start Date Expiration Date Visits Requested Visits Authorized [id number] Authorized Consult and Treat 06/09/2023 12/06/2023 30 30 [facility] Summary Purpose Family History No Family History Records FoundNo Family History Records FoundNo Family History Records FoundNo Family History Records Found Advance Directives No Advanced Directives Records FoundNo Advanced Directives Records FoundNo Advanced Directives Records FoundNo Advanced Directives Records Found Additional Source Comments INFORMATION SOURCE (unrecogn ized section and content) DATE CREATED AUTHOR 09/30/2018 [facility] DATE CREATED AUTHOR AUTHOR'S ORGANIZ ATION 08/10/2021 [facility] DATE CREATED AUTHOR AUTHOR'S ORGANIZ ATION 08/19/2023 [facility] DATE CREATED AUTHOR AUTHOR'S ORGANIZ ATION 11/29/2023 [facility] Care Teams (unrecognized sec tion and content) Ship Pilot Dispatcher Relationship Specialty Start Date End Date Jermain Sarabia MD [address] [place] [phone] PCP - General Family Medicine 06/05/23 Ship Pilot Dispatcher Relationship Specialty Start Date End Date Jermain Sarabia MD [address] [place] [phone] PCP - General Family Medicine 06/05/23 Ship Pilot Dispatcher Relationship Specialty Start Date End Date Jermain Sarabia MD [address] [place] [phone] PCP - General Family Medicine 06/05/23 FOR RECORDS PERTAINING TO PATIENTS WHO ARE OR HAVE BEEN ENROLLED IN A CHEMICAL DEPENDENCY/SUBSTANCEABUSE PROGRAM, SOME INFORMATION MAY BE OMITTED. This clinical summary was aggregated from multiple sources. Caution should be exercised in using it in the provision of clinical care. This summary normalizes information from multiple sources, and as a consequence, information in this document may materially change the coding, format and clinical context of patient data. In addition, data may be omitted in some cases. CLINICAL DECISIONS SHOULD BE BASED ON THE PRIMARY CLINICAL RECORDS. [facility]. provides no warranty or guarantee of the accuracy or completeness of information in this document.
[2023-12-22 08:41] LABS: Basophils Percent Auto 0.5 % (0.2-2.0); Eosinophils Absolute Auto 0.1 10^3/uL (0.0-0.7); Hematocrit 36.8 % (36.0-48.0); Immature Granulocytes Abs Auto 0.01 10^3/uL (0.00-0.03); Immature Granulocytes Pct Auto 0.2 % (0.0-0.5); Lymphocytes Absolute Auto 1.1 10^3/uL (1.2-3.8); Mean Corpuscular HGB Conc 32.6 g/dL (29.9-35.2); Mean Corpuscular Volume 82.7 fL (81.0-99.0); Mean Platelet Volume 10.2 fL (9.5-13.5); Monocytes Absolute Auto 0.3 10^3/uL (0.3-0.8); Monocytes Percent Auto 5.7 % (1.7-12.0); Neutrophils Absolute Auto 2.8 10^3/uL (1.4-6.5); Neutrophils Percent Auto 64.6 % (43.0-75.0); Platelet Count 248 10^3/uL (150-450); Red Blood Count 4.45 10^6/uL (4.20-5.40); Red Cell Distribution Width 13.2 % (11.0-15.0); White Blood Count 4.4 10^3/uL (4.0-11.0)
[2023-12-22 09:03] LABS: HCG Quantitative <1 mIU/mL
[2023-12-22] MEDS: LACTATED RINGER'S SOLUTION 1,000 ML 50 ML IV (09:22)
--- NOTE | 2023-12-22 10:40 | PM.ONB ---
Brief Operative Note Date of procedure: 12/22/23 Pre-op diagnosis general: thickend endometrium Post-op diagnosis: same as pre-op Procedure: NAME OF PROCEDURE: [ D&c hysteroscopy] PROCEDURE: The patient was taken back to the Operating Room where she was prepped and draped in normal sterile fashion after being placed under general anesthesia without difficulty. She was also placed in the dorsal lithotomy position. A weighted speculum was placed in the patient?s vagina. The anterior lip of the cervix was identified and grasped with a single tooth tenaculum. The patient?s uterus was then sounded roughly to [? 8] cm. The patient was then gently dilated using Hegar dilators. The hysteroscope was passed through the patient?s cervix into the uterus. Both ostia were identified. fluffy appearing endometrium. No gross evidence of malignancy, no gross evidence of polyps or fibroids. The hysteroscope was then removed from the uterus. gentle currettage was performed until a gritty texture was noted The endometrial curettings were sent out to pathology. The single tooth tenaculum was then removed from the patient's anterior lip of the cervix where excellent hemostasis was noted. All instruments were removed from the patient?s vagina. The patient tolerated the procedure well. Sponge, lap and needle counts were correct times two. The patient was taken to the Recovery Room in stable condition.Room in stable condition. Anesthesia: MAC Surgeon: Aris Nieto Estimated blood loss (mL): 5 Pathology: other (endometrial currettings) Condition: stable Disposition: PACU
--- NOTE | 2023-12-22 11:14 | PC.NURSE ---
Peripad changed for medium amount bloody drainage
--- NOTE | 2023-12-22 11:31 | PC.NURSE ---
Peripad changed for small amount bloody drainage
--- NOTE | 2023-12-22 12:04 | PC.NURSE ---
Up to bathroom and voids without difficulty; small amount bleeding noted in toliet and scant drainage on peripad
== END 2023-12-22 12:05 | disposition home or self-care (01) ==
PROVIDERS: PCP Family Medicine; Visit Provider Obstetrics & Gynecology
PROC: (CPT 952; principal; 2023-12-22 09:45)
DX: N92.0 Excessive and frequent menstruation with regular cycle (principal); R93.89 Abnormal findings on diagnostic imaging of other specified body structures; Z98.51 Tubal ligation status
CPT/HCPCS: 58558; 36415; 84702; 85025; 88305; J1100; J1885; J2250; J2405; J2704; J3010

== ENCOUNTER 2024-01-26 12:26 | Outpatient (OUT) | payer OTHER, SELFPAY | END 2024-01-26 12:27 | disposition home or self-care (01) | LOC: PST 12:26 | PROVIDERS: PCP Family Medicine; Visit Provider Obstetrics & Gynecology | DX: Z01.818 Encounter for other preprocedural examination (principal); N92.0 Excessive and frequent menstruation with regular cycle; N93.9 Abnormal uterine and vaginal bleeding, unspecified; R10.2 Pelvic and perineal pain ==

== ENCOUNTER 2024-02-09 06:16 | Day surgery (SDC) | payer OTHER, SELFPAY ==
[2024-01-26 12:51] VITALS: BP 150/94; PULSE 83; TEMP 36.4; O2SAT 99; BMI 30.5
[2024-02-09] VITALS (10 sets, daily range): BP systolic 109–143; BP diastolic 71–87; PULSE 64–86; TEMP 36.2–36.5; O2SAT 10–100; BMI 30.6
--- OUTSIDE RECORDS SUMMARY | 2024-02-09 06:18 | XMS_ITS | CCD ---
Author Organization [facility] Care Team Providers Care Shipping Specialist Name Role Phone DR JERMAIN SARABIA Admitting Unavailable NADERENghia, DR JERMAIN Gonzalez Attending Unavailable NADERER, DR JERMAIN Gonzalez Primary Care Unavailable NADERER, DR JERMAIN Gonzalez Consulting Unavailable No SMITH, Jermain Primary Care Provider DO Vineet Nieto Attending Provider [phone] Vineet Nieto Attending Unavailable Vineet Nieto Admitting Unavailable DEVYN WARD Attending Unavailable HILLARY GAO Referring Unavailable TAMMY GOULD Attending Unavailable DEVYN WARD Attending Unavailable HILLARY GAO Referring Unavailable HILLARY GAO Attending Unavailable SANJEEV ARCOS Attending Unavailable TAMMY GOULD Referring Unavailable DEVYN WARD Attending Unavailable TAMMY GOULD Referring Unavailable HILLARY GAO Referring Unavailable SANJEEV ARCOS Attending Unavailable TAMMY GOULD Referring Unavailable TAMMY GOULD Attending Unavailable NADJERMAIN STOVALL Attending Unavailable JERMAIN SARABIA Referring Unavailable GABRIELLE JOHNSON Attending Unavailable GABRIELLE JOHNSON Referring Unavailable GABRIELLE JOHNSON Attending Unavailable NADERERJERMAIN Referring Unavailable JR. FABIAN GEORGE C Attending Unavaila ble TAMMY GOULD Attending Unavailable VINEET NIETO Attending Unavailable GABRIELLE JOHNSON Referring Unavailable VINEET NIETO Attending Unavailable NO, JERMAIN Attending Unavailable VINEET NIETO Attending Unavailable NADSIA, JERMAIN Attending Unavailable NADJERMAIN STOVALL Referring Unavailable NADERERJERMAIN Primary Care Unavailable NADERERJERMAIN Referring Unavailable NADERERJERMAIN Primary Care Unavailable NADALICIARJERMAIN Referring Unavailable NADERER, JERMAIN Primary Care Unavailable Allergies Allergy Classification Reported Allergen(s) Allergy Type Date of Onset Reaction(s) Facility (5 sources) Cefaclor; Translations: [CEFACLOR] Drug Allergy 09-06-2016 Rash, Unknown [facility] Work Phone: Problems Active Problems Problem Classification Problem Date Documented Date Episodic/Chronic Cardiac dysrhythmias (1 source) Palpitations; Translations: [Palpitations] Onset: 01-17-2024 Episodic Deficiency and other anemia (1 source) Iron [...] specified postprocedural states] Onset: 06-15-2023 06-15-2023 Episodic Past or Other Problems Problem Classification Problem Date Documented Da te Episodic/Chronic Other non-traumatic joint disorders (6 sources) Pain in left shoulder; Translations: [Pain in joint, shoulder region] Onset: 03-01-2023 06-15-2023 Episodic Other non-traumatic joint disorders (5 sources) Disorder of shoulder; Translations: [Other specified joint disorders, left shoulder] Onset: 03-01-2023 Resolved: 06-15-2023 06-15-2023 Episodic Results Test Name Value Interpretation Reference Range Facility BASIC METABOLIC PANLon 01-16 Anion gap [Moles/Vol] 8 mmol/L Normal 5-15 [facility] Comment on above: Performed By: #### C DREW THYR, BMP #### [facility] ([id number]) [address] [place] [address] Calcium [Mass/Vol] 9.3 mg/dL Normal 8.5-10.5 [facility] Comment on above: Performed By: #### C BCA, THYR, BMP #### [facility] ([id number]) [address] [place] [address] Chloride [Moles/Vol] 103 mmol/L Normal 98-109 [facility] Comment on above: Performed By: #### C BCA THYR, BMP #### [facility] ([id number]) [address] [place] [address] CO2 [Moles/Vol] 28 mmol/L Normal 22-32 [facility] Comment on above: Performed By: #### C BCA THYR, BMP #### [facility] ([id number]) [address] [facility] [place] [address] Creatinine [Mass/Vol] 0.66 mg/dL Normal 0.40-1.00 [facility] Comment on above: Result Comment: METH OD TRACEABLE TO IDMS STANDARD Performed By: #### C DREW THYR, BMP #### [facility] ([id number]) [address] [place] [address] eGFR (CKD-EPI) NON-RACE DEPENDENT >90 Normal >59 [facility] Comment on above: Result Comment: Reported eGFR is based on the CKD-EPI 2020 equation that does not use a race coefficient. Performed By: #### C DREW THYR, BMP #### [facility] ([id number]) [address] [facility] [place] [address] Glucose [Mass/Vol] 86 mg/dL Normal 65-99 [facility] Comment on above: Performed By: #### C BCA THYR, BMP #### [facility] ([id number]) [address] [place] [address] Potassium [Moles/Vol] 4.5 mmol/L Normal 3.5-5.0 [facility] Comment on above: Performed By: #### C DREW THYR, BMP #### [facility] ([id number]) [address] [place] [address] Sodium [Moles/Vol] 139 mmol/L Normal 134-146 [facility] Comment on above: Performed By: #### C BCA, THYR, BMP #### [facility] ([id number]) [address] [address] [place] [address] Urea nitrogen [Mass/Vol] 16 mg/dL Normal 5-23 [facility] Comment on above: Performed By: #### C DREW THYR, BMP #### [facility] ([id number]) [address] [facility] [address] [place] [address] CBC AND AUTO DIFFon 01-17-20 24 ABSOLUTE BASOPHIL 0.0 X10E9/L Normal 0.0-0.2 [facility] Comment on above: Performed By: #### C DREW THYR, BMP #### [facility] ([id number]) [address] [address] [place] [address] ABSOLUTE NEUTROPHIL 3.6 X10E9/L Normal 1.5-6.6 [facility] Comment on above: Performed By: #### C DREW THYR, BMP #### [facility] ([id number]) [address] [address] [place] [address] Basophils/100 WBC (Bld) 0.6 % Normal [facility] Comment on above: Performed By: #### C DREW THYR, BMP #### [facility] ([id number]) [address] [address] [place] [address] Eosinophils (Bld) [#/Vol] 0.1 10*3/uL Normal 0.0-0.4 [facility] Comment on above: Performed By: #### C DREW THYR, BMP #### [facility] ([id number]) [address] [address] [place] [address] Eosinophils/100 WBC (Bld) 2.2 % Normal [facility] Comment on above: Performed By: #### C BCA, THYR, BMP #### [facility] ([id number]) [address], [address] [place] [address] Erythrocyte distribution width (RBC) [Ratio] 14.4 % Normal 11.5-15.0 [facility] Comment on above: Performed By: #### C ANNA RUSSELL, BMP #### [facility] ([id number]) [address] [place] [address] Hematocrit (Bld) [Volume fraction] 35.0 % Normal 35-47 [facility] Comment on above: Performed By: #### C DREW THYR, BMP #### [facility] ([id number]) [address] [facility] [address] [place] [address] Hemoglobin (Bld) [Mass/Vol] 12.0 g/dL Normal 11.7-15.5 [facility] Comment on above: Performed By: #### C DREW THYNghia, BMP #### [facility] ([id number]) [address], [address] [place] [address] Lymphocytes (Bld) [#/Vol] 1.9 10*3/uL Normal 1.0-3.5 [facility] Comment on above: Performed By: #### C ANNA RUSSELL, BMP #### [facility] ([id number]) [address], [address] [place] [address] Lymphocytes/100 WBC (Bld) 31.0 % Normal [facility] Comment on above: Performed By: #### C DREW THYR, BMP #### [facility] ([id number]) [address] [place] [address] MCH (RBC) [Entitic mass] 27.3 pg Normal 27-34 [facility] Comment on above: Performed By: #### C DREW THYR, BMP #### [facility] ([id number]) [address], [address] [place] [address] MCHC (RBC) [Mass/Vol] 34.1 g/dL Normal 32-36 [facility] Comment on above: Performed By: #### C BCA, THYR, BMP #### [facility] ([id number]) [address], [address] [place] [address] MCV (RBC) [Entitic vol] 80 fL Normal 80-100 [facility] Comment on above: Performed By: #### C BCA, THYR, BMP #### [facility] ([id number]) [address] [place] [address] Monocytes (Bld) [#/Vol] 0.4 10*3/uL Normal 0-0.9 [facility] Comment on above: Performed By: #### C DREW, THYR, BMP #### [facility] ([id number]) [address] [facility] [address] [place] [address] Monocytes/100 WBC (Bld) 6.5 % Normal [facility] Comment on above: Performed By: #### C BCA, THYR, BMP #### [facility] ([id number]) [address] [facility] [address] [place] [address] Neutrophils/100 WBC (Bld) 59.7 % Normal [facility] Comment on above: Performed By: #### C BCA, THYR, BMP #### [facility] ([id number]) [address] [place] [address] Platelet mean volume (Bld) [Entitic vol] 9.1 fL Normal 7-12 [facility] Comment on above: Performed By: #### C BCA, THYR, BMP #### [facility] ([id number]) [address], [address] [place] [address] Platelets (Bld) [#/Vol] 313 10*3/uL Normal 150-450 [facility] Comment on above: Performed By: #### C BCA, THYR, BMP #### [facility] ([id number]) [address], [address] [place] [address] RBC COUNT 4.39 X10E12/L Normal 3.80-5.20 [facility] Comment on above: Performed By: #### C BCA, THYR, BMP #### [facility] ([id number]) [address] [place] [address] WBC (Bld) [#/Vol] 6.1 10*3/uL Normal 4.0-11.0 [facility] Comment on above: Performed By: #### C BCA, THYR, BMP #### [facility] ([id number]) [address], [address] [place] [address] THYROID PROFILEon 01-17-2024 Free T4 [Mass/Vol] 0.96 ng/dL Normal 0.61-1.60 [facility] Comment on above: Performed By: #### C BCA, THYR, BMP #### [facility] ([id number]) [address], [address] [place] [address] TSH 0.60 uIU/mL Normal 0.49-4.67 [facility] Comment on above: Performed By: #### C BCA, THYR, BMP #### [facility] ([id number]) [address], [address] [place] [address] Pathology Request for Lab Co rpon 12-22-2023 Pathology Request for Lab Radha Normal [facility] Comment on above: Order Comment: PATHO LOGY RESIDENTIAL COUNSELOR SPECIMEN Result Comment: See report. Scanned copy available in EMR. PERFORMED BY: [address] [address] PATHOLOGIST MARKETING COMMUNICATIONS ASSISTANT WENDY FERRARO M.D. Performed By: #### P ATH TO [facility] #### [address] [address] [facility] US PELVIS TRANSVAGINALon US PELVIS TRANSVAGINAL FINDINGS: [...] 24 ABSOLUTE BASOPHIL 0.0 X10E9/L Normal 0.0-0.2 [facility] Comment on above: Performed By: #### C BCA #### [facility] ([id number]) [address], [address] [place] [address] ABSOLUTE NEUTROPHIL 3.5 X10E9/L Normal 1.5-6.6 [facility] Comment on above: Performed By: #### C BCA #### [facility] ([id number]) [address] [place] [address] Basophils/100 WBC (Bld) 0.9 % Normal [facility] Comment on above: Performed By: #### C BCA #### [facility] ([id number]) [address] [place] [address] Eosinophils (Bld) [#/Vol] 0.1 10*3/uL Normal 0.0-0.4 [facility] Comment on above: Performed By: #### C BCA #### [facility] ([id number]) [address] [place] [address] Eosinophils/100 WBC (Bld) 1.7 % Normal [facility] Comment on above: Performed By: #### C BCA #### [facility] ([id number]) [address] [place] [address] Erythrocyte distribution width (RBC) [Ratio] 17.5 % High 11.5-15.0 [facility] Comment on above: Performed By: #### C BCA #### [facility] ([id number]) [address] [place] [address] Hematocrit (Bld) [Volume fraction] 27.0 % Low 35-47 [facility] Comment on above: Performed By: #### C BCA #### [facility] ([id number]) [address] [place] [address] Hemoglobin (Bld) [Mass/Vol] 8.0 g/dL Low 11.7-15.5 [facility] Comment on above: Performed By: #### C BCA #### [facility] ([id number]) [address] [place] [address] Lymphocytes (Bld) [#/Vol] 1.1 10*3/uL Normal 1.0-3.5 [facility] Comment on above: Performed By: #### C BCA #### [facility] ([id number]) [address] [place] [address] Lymphocytes/100 WBC (Bld) 21.3 % Normal [facility] Comment on above: Performed By: #### C BCA #### [facility] ([id number]) [address] [place] [address] MCH (RBC) [Entitic mass] 18.7 pg Low 27-34 [facility] Comment on above: Performed By: #### C BCA #### [facility] ([id number]) [address] [place] [address] MCHC (RBC) [Mass/Vol] 29.6 g/dL Low 32-36 [facility] Comment on above: Performed By: #### C BCA #### [facility] ([id number]) [address] [place] [address] MCV (RBC) [Entitic vol] 63 fL Low 80-100 [facility] Comment on above: Performed By: #### C BCA #### [facility] ([id number]) [address] [place] [address] Monocytes (Bld) [#/Vol] 0.3 10*3/uL Normal 0-0.9 [facility] Comment on above: Performed By: #### C BCA #### [facility] ([id number]) [address] [place] [address] Monocytes/100 WBC (Bld) 6.5 % Normal [facility] Comment on above: Performed By: #### C BCA #### [facility] ([id number]) [address] [place] [address] Neutrophils/100 WBC (Bld) 69.6 % Normal [facility] Comment on above: Performed By: #### C BCA #### [facility] ([id number]) [address] [place] [address] OVALOCYTE 1+ Abnormal NONE [facility] Comment on above: Performed By: #### C BCA #### [facility] ([id number]) [address] [place] [address] Platelet mean volume (Bld) [Entitic vol] 8.7 fL Normal 7-12 [facility] Comment on above: Performed By: #### C BCA #### [facility] ([id number]) [address] [place] [address] Platelets (Bld) [#/Vol] 237 10*3/uL Normal 150-450 [facility] Comment on above: Performed By: #### C BCA #### [facility] ([id number]) [address] [place] [address] POLYCHROMASIA 1+ Abnormal NONE [facility] Comment on above: Performed By: #### C BCA #### [facility] ([id number]) [address] [place] [address] RBC COUNT 4.29 X10E12/L Normal 3.80-5.20 [facility] Comment on above: Performed By: #### C BCA #### [facility] ([id number]) [address] [place] [address] WBC (Bld) [#/Vol] 5.1 10*3/uL Normal 4.0-11.0 [facility] Comment on above: Performed By: #### C BCA #### [facility] ([id number]) [address] [place] [address] XR SACRUM COCCYX 2+ VIEWSon 08-18-2023 XR [...] Normal Not Available BI MAMMOGRAM SCREENING TOMOS YRENUIS BILATERALon 04-14-2023 BI MAMMOGRAM SCREENING TOMOSYNTHESIS BILATERAL [...] BASO # 0.0 103/ul Normal 0.0-0.1 [facility] Comment on above: Performed By: #### C BC #### [facility] [address] [address] [address] Dee Tafoya Basophils/100 WBC (Bld) 0.5 % Normal 0.2-2.0 [facility] Comment on above: Performed By: #### C BC #### [facility] [address] [place] [address] Dr. Dee Tafoya EO # 0.1 103/ul Normal 0.0-0.7 [facility] Comment on above: Performed By: #### C BC #### [facility] [address] [place] [address] Dr. Dee Tafoya Eosinophils/100 WBC (Bld) 0.9 % Normal 0.9-7.0 [facility] Comment on above: Performed By: #### C BC #### [facility] [address] [place] [address] Dr. Dee Tafoya Erythrocyte distribution width (RBC) [Ratio] 15.9 % Critically high 11.0-15.0 [facility] Comment on above: Performed By: #### C BC #### [facility] [address] [place] [address] Dr. Dee Tafoya Hematocrit (Bld) [Volume fraction] 30.0 % Critically low 36.0-48.0 [facility] Comment on above: Performed By: #### C BC #### [facility] [address] [place] [address] Dr. Dee Tafoya Hemoglobin (Bld) [Mass/Vol] 8.7 g/dL Critically low 12.0-16.0 [facility] Comment on above: Performed By: #### C BC #### [facility] [address] [place] [address] Dr. Dee Tafoya IG # 0.02 10e3/ul Normal 0.00-0.03 [facility] Comment on above: Performed By: #### C BC #### [facility] [address] [place] [address] Dr. Dee Tafoya IG % 0.3 % Normal 0.0-0.5 [facility] Comment on above: Performed By: #### C BC #### [facility] [address] [place] [address] Dr. Dee Tafoya LYMPH # 1.1 103/ul Critically low 1.2-3.8 [facility] Comment on above: Performed By: #### C BC #### [facility] [address] [place] [address] Dr. Dee Tafoya Lymphocytes/100 WBC (Bld) 16.8 % Critically low 20.5-60.0 [facility] Comment on above: Performed By: #### C BC #### [facility] [address] [place] [address] Dr. Dee Tafoya MANUAL DIFF REQ NO Normal [facility] Comment on above: Performed By: #### C BC #### [facility] [address] [place] [address] Dr. Dee Tafoya MCH (RBC) [Entitic mass] 20.3 pg Critically low 26.7-34.0 [facility] Comment on above: Performed By: #### C BC #### [facility] [address] [place] [address] Dr. Dee Tafoya MCHC (RBC) [Mass/Vol] 29.0 g/dL Critically low 29.9-35.2 [facility] Comment on above: Performed By: #### C BC #### [facility] [address] [place] [address] Dr. Dee Tafoya MCV (RBC) [Entitic vol] 69.9 fL Critically low 81.0-99.0 [facility] Comment on above: Performed By: #### C BC #### [facility] [address] [place] [address] Dr. Dee Tafoya MONO # 0.3 103/ul Normal 0.3-0.8 [facility] Comment on above: Performed By: #### C BC #### [facility] [address] [place] [address] Dr. Dee Tafoya Monocytes/100 WBC (Bld) 5.2 % Normal 1.7-12.0 [facility] Comment on above: Performed By: #### C BC #### [facility] [address] [place] [address] Dr. Dee Tafoya NEUT # 4.9 103/ul Normal 1.4-6.5 [facility] Comment on above: Performed By: #### C BC #### [facility] [address] [address] [address] Dee Tafoya Neutrophils/100 WBC (Bld) 76.3 % Critically high 43.0-75.0 [facility] Comment on above: Performed By: #### C BC #### [facility] [address] [address] [address] Dee Tafoya Platelet mean volume (Bld) [Entitic vol] 10.2 fL Normal 9.5-13.5 [facility] Comment on above: Performed By: #### C BC #### [facility] [address] [address] [address] Dee Tafoya PLT 267 103/ul Normal 150-450 [facility] Comment on above: Performed By: #### C BC #### [facility] [address] [place] [address] Dr. Dee Tafoya RBC 4.29 106/ul Normal 4.20-5.40 [facility] Comment on above: Performed By: #### C BC #### [facility] [address] [address] [address] Dee Tafoya WBC 6.4 103/ul Normal 4.0-11.0 [facility] Comment on above: Performed By: #### C BC #### [facility] [address] [place] [address] Dr. Dee Tafoya GLYCOHEMOGLOBIN A1Con 2021 ADA RECOMMENDATION ADA THERAPEUTIC TARG ET 6.0 - 7.0 ACTION SUGGESTED > 7.0 Normal [facility] Comment on above: Performed By: #### A 1C #### [facility] [address] [place] [address] Dr. Dee Tafoya Glucose [Mass/Vol] 100 mg/dL Normal [facility] Comment on above: Performed By: #### A 1C #### [facility] [address] [place] [address] Dr. Dee Tafoya HbA1c (Bld) [Mass fraction] 5.1 % Normal <=6.0 [facility] Comment on above: Performed By: #### A 1C #### [facility] [address] [address] [address] Dee Tafoya LIPID PROFILEon 08-03-2021 CHOL-HDL RATIO NORM SEE BELOW Normal [facility] Comment on above: Result Comment: 3.3 - 4.4 LOW RISK 4.4 - 7.1 AVERAGE RISK 7.1 - 11.0 MODERATE RISK >11.0 HIGH RISK Performed By: #### L IPID, LIVER, TSH, BMP #### [facility] [address] [address] [address] Dee Tafoya Cholesterol [Mass/Vol] 151 mg/dL Normal <=200 [facility] Comment on above: Performed By: #### L IPID, LIVER, TSH, BMP #### [facility] [address] [address] [address] Dee Tafoya Cholesterol in HDL [Mass/Vol] 43 mg/dL Normal 40-60 [facility] Comment on above: Performed By: #### L IPID, LIVER, TSH, BMP #### [facility] [address] [address] [address] Dee Tafoya Cholesterol in LDL [Mass/Vol] 90.2 mg/dL Normal [facility] Comment on above: Performed By: #### L IPID, LIVER, TSH, BMP #### [facility] [address] [address] [address] Dee Tafoya Cholesterol.total/Ch olesterol in HDL [Mass ratio] 3.5 {ratio} Normal [facility] Comment on above: Performed By: #### L IPID, LIVER, TSH, BMP #### [facility] [address] [address] [address] Dee Tafoya HDL NORMAL > or = 60 mg/dl - LO W CARDIOVASCULAR RISK <40 mg/dl - HIGH CARDIOVASCULAR RISK Normal [facility] Comment on above: Performed By: #### L IPID, LIVER, TSH, BMP #### [facility] [address] [address] [address] Dee Tafoya LDL CALC NORMAL SEE BELOW Normal [facility] Comment on above: Result Comment: <100 mg/dl OPTIMAL 100 - 129 mg/dl NEAR OR ABOVE OPTIMAL 130 - 159 mg/dl BORDERLINE HIGH 160 - 189 mg/dl HIGH >190 mg/dl VERY HIGH Performed By: #### L IPID, LIVER, TSH, BMP #### [facility] [address] [address] [address] Dee Tafoya Triglyceride [Mass/Vol] 89 mg/dL Normal <=150 [facility] Comment on above: Performed By: #### L IPID, LIVER, TSH, BMP #### [facility] [address] [address] [address] Dee Tafoya VLDL CALC 17.8 mg/dL Normal [facility] Comment on above: Performed By: #### L IPID, LIVER, TSH, BMP #### [facility] [address] [address] [address] Dee Tafoya LIVER PROFILEon 08-03-2021 Albumin [Mass/Vol] 4.0 g/dL Normal 3.4-5.0 [facility] Comment on above: Performed By: #### L IPID, LIVER, TSH, BMP #### [facility] [address] [address] [address] Dee Tafoya Albumin/Globulin [Mass ratio] 1.1 {ratio} Normal [facility] Comment on above: Performed By: #### L IPID, LIVER, TSH, BMP #### [facility] [address] [address] [address] Dee Tafoya ALP [Catalytic activity/Vol] 65 U/L Normal 46-116 [facility] Comment on above: Performed By: #### L IPID, LIVER, TSH, BMP #### [facility] [address] [address] [address] Dee Tafoya ALT [Catalytic activity/Vol] 19 U/L Normal 14-59 [facility] Comment on above: Performed By: #### L IPID, LIVER, TSH, BMP #### [facility] [address] [address] [address] Dee Tafoya AST [Catalytic activity/Vol] 14 U/L Critically low 15-37 [facility] Comment on above: Performed By: #### L IPID, LIVER, TSH, BMP #### [facility] [address] [place] [address] Dr. Dee Tafoya BILI, CONJUGATED 0.1 mg/dL Normal 0.0-0.3 [facility] Comment on above: Performed By: #### L IPID, LIVER, TSH, BMP #### [facility] [address] [place] [address] Dr. Dee Tafoya Bilirubin [Mass/Vol] 0.5 mg/dL Normal 0.2-1.3 [facility] Comment on above: Performed By: #### L IPID, LIVER, TSH, BMP #### [facility] [address] [place] [address] Dr. Dee Tafoya Globulin (S) [Mass/Vol] 3.6 g/dL Normal [facility] Comment on above: Performed By: #### L IPID, LIVER, TSH, BMP #### [facility] [address] [place] [address] Dr. Dee Tafoya Protein [Mass/Vol] 7.6 g/dL Normal 6.1-8.2 [facility] Comment on above: Performed By: #### L IPID, LIVER, TSH, BMP #### [facility] [address] [place] [address] Dr. Dee Tafoya PROF CHEM 8 (BAS METB)on Anion gap [Moles/Vol] 13.3 mmol/L Normal [facility] Comment on above: Performed By: #### L IPID, LIVER, TSH, BMP #### [facility] [address] [place] [address] Dr. Dee Tafoya Calcium [Mass/Vol] 8.3 mg/dL Critically low 8.5-10.1 [facility] Comment on above: Performed By: #### L IPID, LIVER, TSH, BMP #### [facility] [address] [place] [address] Dr. Dee Tafoya Chloride [Moles/Vol] 105 mmol/L Normal 98-107 [facility] Comment on above: Performed By: #### L IPID, LIVER, TSH, BMP #### [facility] [address] [address] [address] Dee Tafoya CO2 [Moles/Vol] 24.8 mmol/L Normal 22.0-30.0 [facility] Comment on above: Performed By: #### L IPID, LIVER, TSH, BMP #### [facility] [address] [address] [address] Dee Tafoya Creatinine [Mass/Vol] 0.67 mg/dL Normal 0.52-1.04 [facility] Comment on above: Performed By: #### L IPID, LIVER, TSH, BMP #### [facility] [address] [address] [address] Dee Tafoya EGFR-AF PAKISTANI >60 Normal >=60 [facility] Comment on above: Performed By: #### L IPID, LIVER, TSH, BMP #### [facility] [address] [address] [address] Dee Tafoya EGFR-NON AF PAKISTANI >60 Normal >=60 [facility] Comment on above: Performed By: #### L IPID, LIVER, TSH, BMP #### [facility] [address] [address] [address] Dee Tafoya Glucose [Mass/Vol] 95 mg/dL Normal 74-106 [facility] Comment on above: Performed By: #### L IPID, LIVER, TSH, BMP #### [facility] [address] [address] [address] Dee Tafoya Potassium [Moles/Vol] 4.1 mmol/L Normal 3.4-5.0 [facility] Comment on above: Performed By: #### L IPID, LIVER, TSH, BMP #### [facility] [address] [address] [address] Dee Tafoya Sodium [Moles/Vol] 139 mmol/L Normal 137-145 [facility] Comment on above: Performed By: #### L IPID, LIVER, TSH, BMP #### [facility] [address] [address] [address] Dee Tafoya Urea nitrogen [Mass/Vol] 12.0 mg/dL Normal 7.0-18.0 [facility] Comment on above: Performed By: #### L IPID, LIVER, TSH, BMP #### [facility] [address] [address] [address] Dee Tafoya Urea nitrogen/Creatinine [Mass ratio] 17.9 mg/mg Normal [facility] Comment on above: Performed By: #### L IPID, LIVER, TSH, BMP #### [facility] [address] [address] [address] Dee Tafoya TSHon 08-03-2021 TSH 0.679 uIU/mL Normal 0.470-4.680 [facility] Comment on above: Performed By: #### L IPID, LIVER, TSH, BMP #### [facility] [address] [address] [address] Dee Tafoya TSH RANGE SEE BELOW Normal [facility] Comment on above: Result Comment: <0.3 4 UIU/ml HYPERTHYROID 0.34-5.60 UIU/ml EUTHYROID >5.60 UIU/ml HYPOTHYROID Performed By: #### L IPID, LIVER, TSH, BMP #### [facility] [address] [address] [address] Dee Tafoya Encounters Encounter Date Encounter Type Care Provider Facility Start: 01-18-2024 End: 01-18-2024 ambulatory JERMAIN SARABIA [facility] Start: 01-17-2024 End: 01-17-2024 ambulatory JERMAIN SAARBIA [facility] Start: 01-17-2024 End: 01-17-2024 ambulatory JERMAIN SANDERSR Not Available Start: 01-10-2024 End: 01-10-2024 ambulatory VINEET SIMONO Not Available Start: 12-26-2023 End: 12-26-2023 ambulatory JERMAIN BOBBYERER Not Available Start: 12-22-2023 End: 12-22-2023 ambulatory Vineet Simono [facility] Work Phone: Start: 12-22-2023 End: 12-22-2023 Departed Referred DO Vineet Nieto Work Phone: [facility] Start: 11-22-2023 End: 11-22-2023 ambulatory VINEET GERSON Not Available Start: 10-23-2023 End: 10-23-2023 ambulatory VINEET GERSON Not Available Start: 10-03-2023 End: 10-03-2023 ambulatory GABRIELLE L FLORO Not Available Start: 09-22-2023 End: 09-22-2023 ambulatory GABRIELLE L FLORO Not Available Start: 09-20-2023 End: 09-20-2023 ambulatory GABRIELLE L FLORO Not Available Start: 08-18-2023 End: 08-18-2023 ambulatory JERMAIN NADERER Not Available Start: 08-18-2023 End: 08-18-2023 ambulatory JERMAIN NADERER [facility] Start: 08-17-2023 End: 08-17-2023 ambulatory JERMAIN NADERER Not Available Start: 07-07-2023 Chart abstracting Tammy sanchez PA Work Phone: [facility] Start: 07-07-2023 End: 07-07-2023 ambulatory TAMMY GOULD Not Available Start: 07-06-2023 End: 07-06-2023 ambulatory SANJEEV ARCOS Not Available Start: 06-22-2023 Bamboo flowsheet Devyn Wrig ht CERTIFIED DIALYSIS TECHNICIAN Work Phone: [facility] Start: 06-22-2023 Bamboo flowsheet Devyn Wrig ht CERTIFIED DIALYSIS TECHNICIAN Work Phone: [facility] Start: 06-22-2023 End: 06-22-2023 ambulatory Devyn Ward CERTIFIED DIALYSIS TECHNICIAN Work Phone: [facility] Comment on [...] Not Available Start: 04-19-2023 End: 04-19-2023 ambulatory JR. ROBBIN Evan FABIAN Not Available Start: 04-14-2023 End: 04-14-2023 ambulatory JERMAIN SARABIA Not Available Start: 04-12-2023 End: 04-12-2023 ambulatory HILLARY GAO Not Available Start: 04-03-2023 End: 04-03-2023 ambulatory HILLARY GAO Not Available Start: 03-31-2023 End: 03-31-2023 ambulatory DEVYN WARD Not Available Start: 03-28-2023 End: 03-28-2023 ambulatory DEVYN WARD Not Available Start: 08-09-2021 Encounter for genera l adult medical examination without abnormal findings DR JERMAIN SARABIA [facility] Start: 08-03-2021 End: 08-04-[address] JERMAIN SARABIA Facility:[facility] Start: 08-03-2021 End: 08-04-2021 Encounter for general adult medical examination without abnormal findings DR JERMAIN SARABIA Facility:[facility] Procedures Date Procedure Procedure Detail Performing Clinician Start: 04-14-2023 Mammography Sanjeev franco PT Work Phone: Plan of Treatment Date Care Activity Detail Author Start: 04-14-2024 Screening for malignant neoplasm of breast Mammogram [facility] Start: 12-22-2023 [facility] Start: 07-07-2023 End: 07-07-2023 Patient encounter procedure 07/07/2023 10:15 AM EST Office Visit [facility] [address] [facility] [address] [place] [address] Tammy Gould, MANUEL [address] [facility] [address] [place] [address] [facility] Start: 07-06-2023 End: 07-06-2023 ambulatory 07/06/2023 12:00 PM EST Treatment [facility] [address] [place] [phone] Sanjeev Arcos, PT [address] [place], [place] [phone] [facility] Start: 06-29-2023 End: 06-29-2023 ambulatory 06/29/2023 1:00 PM EST Treatment [facility] [address] [place] [address] WardDevyn, CERTIFIED DIALYSIS TECHNICIAN [address] [facility] [place], [place] [id number] [facility] Start: 06-22-2023 End: 06-22-2023 ambulatory [facility] Comment on above: Arrived Start: 01-13-2023 Influenza vaccination Influenza Vacc ine (#1) [facility] Start: 01-31-2010 Screening for malignant neoplasm of cervix [facility] Start: 01-31-2001 Screening for malignant neoplasm of cervix Pap Smear [facility] Immunizations Immunization Date Immunization Notes Care Provider Fa [facility] 02-06-2018 influenza virus vacc ine, unspecified formulation Sanjeev Arcos PT Work Phone: [facility] Payers Date Payer Category Payer Self-pay [id number] [address] [facility] Care O (unspecified) AET[employer] A[employer] [id number] 2015-Present [address] [place] [address] [facility] [id number] 1980 Unknown [id number] 2.16.840.1.679359.3.579. 2.593 1980 Unknown [id number] 2.16.840.1.914117.3.579. 2.1259 1980 Unknown [id number] 2.16.840.1.683859.3.579. 2.1258 1980 Unknown [id number] 2.16.840.1.199017.3.579. 2.1258 1980 Unknown [id number] 2.16.840.1.236594.3.579. 2.1258 1980 Unknown [id number] 2.16.840.1.151384.3.579. 2.1258 1980 Unknown [id number] 2.16.840.1.780984.3.579. 2.1258 1980 Unknown [id number] 2.16.840.1.782079.3.579. 2.1258 1980 Unknown [id number] 2.16.840.1.257084.3.579. 2.1258 1980 Unknown [id number] 2.16.840.1.355840.3.579. 2.1258 1980 Unknown [id number] 2.16.840.1.470014.3.579. 2.1258 1980 Unknown [id number] 2.16.840.1.036573.3.579. 2.1258 1980 Unknown [id number] 2.16.840.1.766232.3.579. 2.1258 1980 Unknown [id number] 2.16.840.1.376310.3.579. 2.1258 1980 Unknown [id number] 2.16.840.1.866813.3.579. 2.1258 1980 Unknown [id number] 2.16.840.1.336503.3.579. 2.1258 1980 Unknown [id number] 2.16.840.1.955707.3.579. 2.1258 1980 Unknown [id number] 2.16.840.1.536695.3.579. 2.1258 1980 Unknown [id number] 2.16.840.1.990271.3.579. 2.1258 1980 Unknown [id number] 2.16.840.1.007076.3.579. 2.1258 1980 Unknown [id number] 2.16.840.1.194159.3.579. 2.1258 1980 Unknown [id number] 2.16.840.1.754937.3.579. 2.1258 1980 Unknown [id number] 2.16.840.1.399755.3.579. 2.1258 1980 Unknown [id number] 2.16.840.1.230112.3.579. 2.1285 1980 Unknown [id number] 2.16.840.1.314314.3.579. 2.1285 1980 Unknown [id number] 2.16.840.1.326612.3.579. 2.1286 1959 Private Health Insurance [id number] Private Health Insurance [employer] [id number] Unknown [id number] 2.16.840.1.351549.3.579. 2.531 Social History Date Type Detail Facility Start: 05-26-2023 Tobacco smoking status NYIS Ex-smoker [facility] History of tobacco use Current smoker [facility] History of tobacco use Cigarette Smoker [facility] Start: 05-26-2023 Tobacco use and exposure Smokeless tobacco non-user [facility] Start: 06-09-2023 End: 06-25-2023 Alcohol intake Current drinker of alcohol (finding) [facility] Start: 05-26-2023 History of Social function [facility] Start: 05-26-2023 Tobacco use panel [facility] Start: 03-03-2023 Alcohol Comment drinks alcohol 2-4 times a month [facility] Start: 1980 Sex Assigned At Not on file [facility] Start: 07-27-2022 Gender identity Identifies as female gender (finding) [facility] Start: 1980 Sex Assigned At Female [facility] Evaluation note Note Date & Type Note Facility Evaluation note Diagnosis Left shoulder pain, unspecified chronicity- Primary Shoulder stiffness, left Status post arthroscopy of left shoulder documented in this encounter [facility] Evaluation note Note Date & Type Note Facility Evaluation note Diagnosis Left shoulder pain, unspecified chronicity- Primary Shoulder stiffness, left Status post arthroscopy of left shoulder Impingement of left shoulder documented in this encounter [facility] Evaluation note Note Date & Type Note Facility Evaluation note No assessment information availa [facility] Work Phone: Reason for visit Narrative Consultation (Routine) - Authorized Note Date & Type Note Facility Reason for visit Narrative Specialty Diagnoses / Procedures Referred By Georgina bynum Referred To Contact Physical Therapy Diagnoses S/P arthroscopy of left shoulder Procedures FL OFFICE/OUTPATIENT NEW HIGH MDM 60 MINUTES Tammy Gould PA [address] [place] [address] [place] [address] Sanjeev Arcos, PT [address] [place] [address] Referral ID Status Reason Start Date Expiration Date Visits Requested Visits Authorized [id number] Authorized Consult and Treat 06/09/2023 12/06/2023 30 30 [facility] Summary Purpose Family History No Family History Records FoundNo Family History Records FoundNo Family History Records FoundNo Family History Records Found Advance Directives No Advanced Directives Records Found Advance Directive Response Recorded Date/ Time Advance Directives No September 12, 2018 7:33pm Additional Source Comments INFORMATION SOURCE (unrecogn ized section and content) DATE CREATED AUTHOR 08/10/2021 [facility] DATE CREATED AUTHOR AUTHOR'S ORGANIZ ATION 12/29/2023 [facility] DATE CREATED AUTHOR AUTHOR'S ORGANIZ ATION 01/18/2024 [facility] EPIC DATE CREATED AUTHOR AUTHOR'S ORGANIZ ATION 01/19/2024 [facility] Care Teams (unrecognized sec tion and content) Shipping Specialist Relationship Specialty Start Date End Date Jermain Sarabia MD [address] [place] [phone] PCP - General Family Medicine 06/05/23 Shipping Specialist Relationship Specialty Start Date End Date Jermain Sarabia MD [address] [place] [address] PCP - General [facility] 06/05/23 Shipping Specialist Relationship Specialty Start Date End Date Jermain Sarabia MD [address] [place] [phone] PCP - [facility] 06/05/23 Team Status: Inactive Member Role Status Dates Vineet Nieto DO Attending Provider Active Start : December 22, 2023 End: December 22, 2023 Goals (unrecognized section and content) Goals may be documented in a n alternate section FOR RECORDS PERTAINING TO PATIENTS WHO ARE [...] BE BASED ON THE PRIMARY CLINICAL RECORDS. [facility] [employer] [facility]. provides no warranty or guarantee of the accuracy or completeness of information in this document.
[2024-02-09 06:24] LABS: Basophils Percent Auto 0.6 % (0.2-2.0); Eosinophils Absolute Auto 0.2 10^3/uL (0.0-0.7); Eosinophils Percent Auto 3.7 % (0.9-7.0); Hematocrit 34.1 % (36.0-48.0); Hemoglobin 10.9 g/dL (12.0-16.0); Immature Granulocytes Abs Auto 0.01 10^3/uL (0.00-0.03); Immature Granulocytes Pct Auto 0.2 % (0.0-0.5); Lymphocytes Absolute Auto 1.6 10^3/uL (1.2-3.8); Lymphocytes Percent Auto 29.2 % (20.5-60.0); Mean Corpuscular Hemoglobin 25.6 pg (26.7-34.0); Mean Platelet Volume 9.8 fL (9.5-13.5); Monocytes Absolute Auto 0.4 10^3/uL (0.3-0.8); Monocytes Percent Auto 7.5 % (1.7-12.0); Neutrophils Absolute Auto 3.2 10^3/uL (1.4-6.5); Neutrophils Percent Auto 58.8 % (43.0-75.0); Platelet Count 243 10^3/uL (150-450); Red Blood Count 4.26 10^6/uL (4.20-5.40); Red Cell Distribution Width 12.7 % (11.0-15.0); White Blood Count 5.4 10^3/uL (4.0-11.0)
[2024-02-09] MEDS: LACTATED RINGER'S SOLUTION 1,000 ML 50 ML IV ×2 (06:43→08:26)
[2024-02-09 06:46] LABS: HCG Quantitative <1 mIU/mL
--- NOTE | 2024-02-09 08:21 | PM.ONB ---
Brief Operative Note Date of procedure: 02/09/24 Pre-op diagnosis general: menorrhagia Post-op diagnosis: same as pre-op Procedure: NAME OF PROCEDURE: [ ] Christelle endometrial ablation with hysteroscopy. PROCEDURE: The patient was taken back to the OR where she was prepped and draped in the normal sterile fashion after being placed in the dorsal lithotomy position, after being placed under general anesthesia without difficulty.? A weighted speculum was placed into the vagina. The anterior lip was grasped with a single tooth tenaculum. The patient was then sounded to approximated 8cm. The patient?s cervix was gently dilated using hegardilators. The hysteroscope was passed through the cervix into the uterus where both ostia were seen. No gross evidence of polyps, fibroids or malignancy. The cervical length was noted to be 4 cm. The total cavity length is 4cm.? The Christelle ablation apparatus was set to approximately 4cm in length. This was placed through the cervix and into the uterus. After the seal was tested, at that time the total ablation of 120 seconds was performed with the Christelle withoutdifficulty. All instruments were removed from the vagina. Excellent hemostasis noted.? Sponge and lap count correct times 2.? Patient taken to recovery in stable condition. Anesthesia: MAC Surgeon: Aris Nieto Estimated blood loss (mL): 5 Pathology: none sent Condition: stable Disposition: PACU Urinary Catheter Management Urinary Catheter Management Straight: Cath placed during this visit: no
--- NOTE | 2024-02-09 09:49 | PC.NURSE ---
0935: pt ambulates to bathroom with minimal assistance,pt voids without difficulty.
== END 2024-02-09 09:45 | disposition home or self-care (01) ==
PROVIDERS: PCP Family Medicine; Visit Provider Obstetrics & Gynecology
PROC: (CPT 952; principal; 2024-02-09 07:30)
DX: N92.0 Excessive and frequent menstruation with regular cycle (principal); N93.9 Abnormal uterine and vaginal bleeding, unspecified; R10.2 Pelvic and perineal pain
CPT/HCPCS: 58563; 36415; 84702; 85025; J1100; J1885; J2250; J2405; J2704; J3010

== ENCOUNTER 2024-11-25 12:36 | Outpatient (OUT) | payer OTHER, SELFPAY ==
--- OUTSIDE RECORDS SUMMARY | 2024-11-19 09:30 | XMS_ITS | Encounter Summary ---
Author Organization [facility] Address [address] [place] [address] Care Team Providers Care Shot Grinder Operator Name Role Phone Jermain Davis MD Primary Care Provider [phone] Reason for Visit * Reason Comments Follow-up 3m Encounter Details Date Type Department Care Team ([facility] st Contact Info) Description 11/19/2024 9:30 AM EDT Office Visit [facility] [address] [place] [address] Jermain Davis MD [address] [place] [phone] Benign essential hypertension (Primary Dx); Menorrhagia with regular cycle; Perimenopausal Social History Tobacco Use Types Packs/Day Years Used Date Smoking Tobacco: Never Smokeless Tobacco: Never Alcohol Use Standard Drinks/Week Comments Not Currently 0 (1 standard drink = 0.6 oz pure alcohol) drinks alcohol 2-4 times a month Social Connection and Isolat ion Panel [NHANES] Answer Date Recorded In a typical week, how many times do you talk on the phone with family, friends, or neighbors? Never 08/17/2023 How often do you get togethe r with friends or relatives? Patient declined 08/17/2023 How often do you attend chur ch or jainism services? More than 4 times per year 08/17/2023 Do you belong to any clubs o r organizations such as episcopal groups, unions, fraternal or athletic groups, or school groups? No 08/17/2023 How often do you attend meet ings of the clubs or organizations you belong to? Never 08/17/2023 Are you , , di vorced, , never , or living with a partner? 08/17/2023 AUDIT-C Answer Date Recorded Q1: How often do you have a drink containing alc ohol? Monthly or less 08/17/2023 Q2: How many drinks containi ng alcohol do you have on a typical day when you are drinking? 1 or 2 08/17/2023 Q3: How often do you have si x or more drinks on one occasion? Never 08/17/2023 Overall Financial Resource Strain (CARDIA) Answe r Date Recorded How hard is it for you to pa y for the very basics like food, housing, medical care, and heating? Not hard at all 08/17/2023 [facility] of Occupat ional Health - Occupational Stress Questionnaire Answer Date Recorded Do you feel stress - tense, restless, nervous, or anxious, or unable to sleep at night because your mind is troubled all the time - these days? Only a little 08/17/2023 Exercise Vital Sign Answer Date Recorde d On average, how many days pe r week do you engage in moderate to strenuous exercise (like a brisk walk)? 0 days 08/17/2023 On average, how many minutes do you engage in exercise at this level? 0 min 08/17/2023 Hunger Vital Sign Answer Date Recorded Within the past 12 months, y ou worried that your food would run out before you got the money to buy more. Never true 08/17/19 24 Within the past 12 months, t he food you bought just didn't last and you didn't have money to get more. Never true 08/17/2023 PRAPARE - Transportation Answer Date Re corded In the past 12 months, has l ack of transportation kept you from medical appointments or from getting medications? No 08/2023 In the past 12 months, has l ack of transportation kept you from meetings, work, or from getting things needed for daily living? No 08/17/2023 Housing Stability Vital Sign Answer Harpreet e Recorded In the last 12 months, was t here a time when you were not able to pay the mortgage or rent on time? No 08/17/2023 In the last 12 months, how many places have you lived? 1 08/17/2023 In the last 12 months, was t here a time when you did not have a steady place to sleep or slept in a longterm (including now)? No 08/17/2023 Comments No Sex and Gender Information Value Date Recorded Sex Assigned at Not on file Legal Sex Female 7:27 PM EDT Gender Identity Female 07/27/2022 7:27 PM EDT Sexual Orientation Not on file documented as of this encounter Last Filed Vital Signs Vital Sign Reading Time Taken Comments Blood Pressure 134/76 11/19/2024 9:35 AM EDT Pulse 36 11/19/2024 9:35 AM EDT Temperature 36.8 C (98.2 F) 11/19/2024 9:35 AM EDT Respiratory Rate 22 11/19/2024 9:35 AM EDT Oxygen Saturation 98% 11/19/2024 9:35 AM EDT Inhaled Oxygen Concentration - - Weight 80.3 kg (177 lb) 11/19/2024 9:35 AM EDT Height 162.6 cm (5' 4 ) 11/19/2024 9:35 AM EDT Body Mass Index 30.38 11/19/2024 9:35 AM EDT documented in this encounter Progress Notes * Jermain Davis MD - 11/19/2024 10:29 AM EDTAssociated Problem(s): Perimenopausal Developed symptoms and monitor after surgery. May need hormone replacement. * Jermain Davis MD - 11/19/2024 10:29 AM EDTAssociated Problem(s): Menorrhagia Able to proceed with upcoming surgery at low risk for complications. Recommend routine PAT. * Jermain Davis MD - 11/19/2024 10:28 AM EDTAssociated Problem(s): Benign essential hypertension BP controlled and monitor PRN. * Jermain Davis MD - 11/19/2024 9:30 AM EDT Images from the original note were not included. Subjective Patient ID: Corrina Dobbs is a 44 y.o. female who presents for Follow-up (3m). Follow up HTN and anemia. Checking BP PRN and typically controlled. BP normal today. Taking medication daily and tolerating without side effects. Continues to have fatigue. Seen by manager of pharmacy for menorrhagia and will have robotic BEN 11/27. Last CBC showed continued anemia with hgb 9.9. C/o perimenopause symptoms and starting to have hot flashes with mood swings. Review of Systems Respiratory: Negative for cough, shortness of breath and wheezing. Cardiovascular: Negative for chest pain and palpitations. Gastrointestinal: Negative for abdominal pain, diarrhea, nausea and vomiting. Genitourinary: Negative for dysuria. Objective Physical Exam Constitutional: General: She is not in acute distress. Appearance: Normal appearance. HENT: Head: Normocephalic. Right Ear: Tympanic membrane normal. Left Ear: Tympanic membrane normal. Eyes: Extraocular Movements: Extraocular movements intact. Pupils: Pupils are equal, round, and reactive to light. Cardiovascular: Rate and Rhythm: Normal rate and regular rhythm. Heart sounds: No murmur heard. No friction rub. No gallop. Pulmonary: Effort: Pulmonary effort is normal. Breath sounds: Normal breath sounds. No wheezing, rhonchi or rales. Abdominal: General: Bowel sounds are normal. There is no distension. Palpations: Abdomen is soft. Tenderness: There is no abdominal tenderness. There is no guarding or rebound. Musculoskeletal: Cervical back: Neck supple. Right lower leg: No edema. Left lower leg: No edema. Neurological: Mental Status: She is alert. Assessment/Plan Problem List Items Addressed This Visit Menorrhagia Able to proceed with upcoming surgery at low risk for complications. Recommend routine PAT. Benign essential hypertension - Primary BP controlled and monitor PRN. Perimenopausal Developed symptoms and monitor after surgery. May need hormone replacement. documented in this encounter Plan of Treatment Upcoming Encounters Date Type Department Care Team (Late st Contact Info) Description 12/04/2024 9:30 AM EDT Office Visit [facility] [address] [place] [phone] Cindy Goins PA [address] [place] [address] 01/08/2025 8:30 AM EDT Office Visit [facility] [address] [place] [phone] Cindy Goins PA [address] [place] [address] 02/21/2025 9:00 AM EDT Office Visit [facility] [address] [place] [address] Jermain Davis MD [address] [place] [phone] documented as of this encounter Visit Diagnoses Diagnosis Benign essential hypertension- Primary Essential hypertension, benign Menorrhagia with regular cycle Perimenopausal Symptomatic menopausal or female climacteric states documented in this encounter Care Teams Shot Grinder Operator Relationship Specialty Start Date End Date Jermain Davis MD [address] [place] [phone] PCP - General Family Medicine 06/05/23 documented as of this encounter
--- OUTSIDE RECORDS SUMMARY | 2024-11-25 12:40 | XMS_ITS | Encounter Summary ---
Author Organization [facility] Address [address] [place] [address] Care Team Providers Care Nursing Instructor Name Role Phone Jermain Davis MD Primary Care Provider [phone] Encounter Details Date Type Department Care Team (Late st Contact Info) Description 01/01/2024 Abstract [facility] [address] [address] Aris Nieto, DO [address] [facility] [place] [address] Social History Tobacco Use Types Packs/Day Years [...] often do you attend chur ch or jain services? More than 4 times per year 08/17/2023 Do you belong to any clubs o r organizations such as temple groups, unions, fraternal or athletic groups, or [...] and heating? Not hard at all 08/17/2023 [facility] [place] of Occupat ional Health - Occupational Stress [...] place to sleep or slept in a mcc (including now)? No 08/17/2023 Comments No Sex and Gender Information Value Date Recorded Sex Assigned at Not on file Legal Sex Female 7:27 PM EDT Gender Identity Female 07/27/2022 7:27 PM EDT Sexual Orientation Not on file documented as of this encounter Plan of Treatment Upcoming Encounters Date Type Department Care Team (Late st Contact Info) Description 12/04/2024 9:30 AM EDT Office Visit [facility] [address] [facility] [address] [place] [phone] Cindy Goins PA [address] [place] [address] 01/08/2025 8:30 AM EDT Office Visit [facility] [address] [facility] [address] [place] [address] Cindy Goins PA [address] [facility] [address] [place], [place] [address] 02/21/2025 9:00 AM EDT Office Visit [facility] [address] [place] [address] Jermain Davis MD [address] [place] [address] documented as of this encounter Visit Diagnoses Not on filedocumented in this encounter Care Teams Nursing Instructor Relationship Specialty Start Date End Date Jermain Davis MD [address] [place] [address] PCP - General Family Medicine 06/05/23 documented as of this encounter
--- OUTSIDE RECORDS SUMMARY | 2024-11-25 12:40 | XMS_ITS | Encounter Summary ---
Author Organization [facility] Address [address] [place] [address] Care Team Providers Care Strip Stamp Straightener Name Role Phone Jermain Davis MD Primary Care Provider [phone] Encounter Details Date Type Department Care Team (Late st Contact Info) Description 11/19/2024 Bamboo flowsheet [facility] [address] [place] [address] Jermain Davis MD [address] [place] [address] Social History Tobacco Use Types Packs/Day Years [...] 08/17/2023 How often do you attend chur or mosque services? More than 4 times per year 08/17/2023 Do you belong to any clubs o r organizations such as congregation groups, unions, fraternal or athletic groups, or [...] and heating? Not hard at all 08/17/2023 [facility] of Occupat ional Health - Occupational Stress [...] EDT Office Visit [facility] [address] [facility] [place] [address] Cindy Goins, PA [address] [facility] [place] [address] 01/08/2025 8:30 AM EDT Office Visit [facility] [address] [facility] [facility] [place] [address] Cindy Goins, PA [address] [facility] [place] [address] 02/21/2025 9:00 AM EDT Office Visit [facility] [address] [place] [phone] Jermain Davis MD [address] [place] [address] documented as of this encounter Visit Diagnoses Not on filedocumented in this encounter Care Teams Strip Stamp Straightener Relationship Specialty Start Date End Date Jermain Davis MD [address] [place] [address] PCP - General Family Medicine 06/05/23 documented as of this encounter
--- OUTSIDE RECORDS SUMMARY | 2024-11-25 12:40 | XMS_ITS | Encounter Summary ---
Author Organization [facility] Address [address] [facility] [place] [address] Care Team Providers Care Hydraulic Lift Operator Name Role Phone Jermain Daivs MD Primary Care Provider [phone] Encounter Details Date Type Department Care Team (Late st Contact Info) Description 08/26/2024 Results Follow-Up [facility] [address] [place] [address] Jermain Davis MD [address] [place] [address] Social History Tobacco Use Types Packs/Day Years [...] often do you attend chur ch or taoist services? More than 4 times per year 08/17/2023 Do you belong to any clubs o r organizations such as jew groups, unions, fraternal or athletic groups, or [...] and heating? Not hard at all 08/17/2023 [facility] of Occupat ional Health - Occupational [...] EDT Office Visit [facility] [address] [facility] [place] [address] Cindy Goins PA [address] [facility] [place] [address] 01/08/2025 8:30 AM EDT Office Visit [facility] [address] [place] [place] [address] Cindy Goins, PA [address] [facility] [place] [address] 02/21/2025 9:00 AM EDT Office Visit [facility] [address] [place] [address] Jermain Davis MD [address] [place] [address] documented as of this encounter Visit Diagnoses Not on filedocumented in this encounter Care Teams Hydraulic Lift Operator Relationship Specialty Start Date End Date Jermain Davis MD [address] [place] [address] PCP - General Family Medicine 06/05/23 documented as of this encounter
--- OUTSIDE RECORDS SUMMARY | 2024-11-25 12:40 | XMS_ITS | Encounter Summary ---
Author Organization [facility] Address [address] [facility] [place] [address] Care Team Providers Care Retail Banking Manager Name Role Phone Jermain Davis MD Primary Care Provider [phone] Encounter Details Date Type Department Care Team (Late st Contact Info) Description 12/13/2023 Abstract [facility] [address] [place] [address] Aris Nieto, DO [address] [facility] [place] [address] Social History Tobacco Use Types Packs/Day Years [...] often do you attend chur ch or gnosticism services? More than 4 times per year 08/17/2023 Do you belong to any clubs o r organizations such as taoism groups, unions, fraternal or athletic groups, or [...] and heating? Not hard at all 08/17/2023 [facility] of Occupat ional Health - Occupational Stress [...] place to sleep or slept in a correction (including now)? No 08/17/2023 Comments No Sex [...] EDT Office Visit [facility] [address] [place] [address] Cindy Goins PA [address] [facility] [place] [address] 01/08/2025 8:30 AM EDT Office Visit [facility] OB [address] [place] [address] Cindy Goins PA [address] [facility] [address] [place], [place] [phone] 02/21/2025 9:00 AM EDT Office Visit [facility] [address] [place] [address] Jermain Davis MD [address] [place] [address] documented as of this encounter Visit Diagnoses Not on filedocumented in this encounter Care Teams Retail Banking Manager Relationship Specialty Start Date End Date Jermain Davis MD [address] [place] [address] PCP - General Family Medicine 06/05/23 documented as of this encounter
--- OUTSIDE RECORDS SUMMARY | 2024-11-25 12:40 | XMS_ITS | Encounter Summary ---
Author Organization [facility] Address [address] [facility] [place] [address] Care Team Providers Care Grid Operator Name Role Phone Jermain Davis MD Primary Care Provider [phone] Jermain Davis MD Primary Care Provider [phone] Encounter Details Date Type Department Care Team (Late Contact Info) Description 02/08/2023 Abstract [facility] [address] [place] [address] Edouard Weir, WASHTUB WORKER [address] [place], [place] [phone] Social History Tobacco Use Types Packs/Day Years Used Date Smoking Tobacco: Never Smokeless Tobacco: Never Tobacco Cessation:Counseling Given: Not Answered Alcohol Use Standard Drinks/Week Comments Yes 0 (1 standard drink = 0.6 oz pur e alcohol) Comments Unknown Sex and Gender Information Value Date Recorded Sex Assigned at Not on file Legal Sex Female 7:27 PM EDT Gender Identity Female 07/27/2022 7:27 PM EDT Sexual Orientation Not on file documented as of this encounter Plan of Treatment Upcoming Encounters Date Type Department Care Team (Late st Contact Info) Description 12/04/2024 9:30 AM EDT Office Visit [facility] [address] [facility] [place] [address] Cindy Goins PA [address] [place] [address] 01/08/2025 8:30 AM EDT Office Visit [facility] [address] [facility] [place] [address] Cindy Goins PA [address] [facility] [place] [address] 02/21/2025 9:00 AM EDT Office Visit [facility] [address] [place] [address] Jermain Davis MD [address] [place] [address] documented as of this encounter Visit Diagnoses Not on filedocumented in this encounter Care Teams Grid Operator Relationship Specialty Start Date End Date Jermain Davis MD PCP - General Family Medicine 11/07/22 06/04/23 Jermain Davis MD [address] [place] [address] PCP - General Family Medicine 06/05/23 documented as of this encounter
--- OUTSIDE RECORDS SUMMARY | 2024-11-25 12:40 | XMS_ITS | Encounter Summary ---
Author Organization [facility] Address [address] [facility] [place] [address] Care Team Providers Care E M Assembler Name Role Phone Jermain Davis MD Primary Care Provider [phone] Encounter Details Date Type Department Care Team (Late st Contact Info) Description 01/04/2024 Abstract [facility] [address] [place] [address] Aris Nieto, DO [address] [facility] [place] [address] Social History Tobacco Use Types Packs/Day Years [...] often do you attend chur ch or samaritan services? More than 4 times per year 08/17/2023 Do you belong to any clubs o r organizations such as caodaism groups, unions, fraternal or athletic groups, or [...] and heating? Not hard at all 08/17/2023 [facility] [place] of Occupat ional Health - Occupational Stress [...] place to sleep or slept in a residential (including now)? No 08/17/2023 Comments No Sex [...] OB [address] [facility] [place] [phone] Cindy Goins PA [address] [facility] [place] [address] 01/08/2025 8:30 AM EDT Office Visit [facility] [address] [facility] [place] [address] Cindy Goins PA [address] [facility] [address] [place], [place] [address] 02/21/2025 9:00 AM EDT Office Visit [facility] [address] [place] [address] Jermain Davis MD [address] [place] [address] documented as of this encounter Visit Diagnoses Not on filedocumented in this encounter Care Teams E M Assembler Relationship Specialty Start Date End Date Jermain Davis MD [address] [place] [address] PCP - General Family Medicine 06/05/23 documented as of this encounter
--- OUTSIDE RECORDS SUMMARY | 2024-11-25 12:40 | XMS_ITS | Encounter Summary ---
Author Organization [facility] Address [address] [place] [address] Care Team Providers Care Air Compressor Engineer Name Role Phone Jermain Davis MD Primary Care Provider [phone] Encounter Details Date Type Department Care Team (Late st Contact Info) Description 06/28/2024 Orders Only [facility] [address] [place] [address] Irina Guerrero MD [facility], [address] [place], [place] [phone] Social History Tobacco Use Types Packs/Day Years [...] often do you attend chur ch or orthodox services? More than 4 times per year 08/17/2023 Do you belong to any clubs o r organizations such as zoroastrianism groups, unions, fraternal or athletic groups, or [...] and heating? Not hard at all 08/17/2023 [facility] [place] of Occupat ional Health - Occupational Stress [...] place to sleep or slept in a detention (including now)? No 08/17/2023 Comments No Sex [...] [facility] [place] [phone] Cindy Goins PA [address] [facility] [place] [address] 01/08/2025 8:30 AM EDT Office Visit [facility] OB [address] [facility] [place] [phone] Cindy Goins PA [address] [facility] [address] [place], [place] [address] 02/21/2025 9:00 AM EDT Office Visit [facility] [address] [place] [address] Jermain Davis MD [address] [place] [address] documented as of this encounter Procedures Procedure Name Priority Date/Time Associated Diagnosis Comments DIABETES EYE EXAM Routine 06/28/2024 9:07 AM EST documented in this encounter Results * Diabetes Eye Exam (06/28/2024 9:07 AM EST) Irina Guerrero MD HEALTH MAINTENANCE Final Resul t documented in this encounter Visit Diagnoses Not on filedocumented in this encounter Care Teams Air Compressor Engineer Relationship Specialty Start Date End Date Jermain Davis MD [address] [place] [address] PCP - General Family Medicine 06/05/23 documented as of this encounter
--- OUTSIDE RECORDS SUMMARY | 2024-11-25 12:40 | XMS_ITS | Encounter Summary ---
Author Organization [facility] Address [address] [place] [address] Care Team Providers Care Professional Model Name Role Phone Jermain Davis MD Primary Care Provider [phone] Encounter Details Date Type Department Care Team (Late st Contact Info) Description 12/12/2023 Clinisync Result Encounter [facility] External Department Unsolicited Provider, Generic External Data Social History Tobacco Use Types Packs/Day Years [...] How often do you attend chur or oriental orthodox services? More than 4 times per year 08/17/2023 Do you belong to any clubs o r organizations such as mandaen groups, unions, fraternal or athletic groups, or [...] and heating? Not hard at all 08/17/2023 [facility] - Occupational Stress Questionnaire Answer Date Recorded [...] 12/04/2024 9:30 AM EDT Office Visit [facility] OB [address] [place] [address] Cindy Goins PA [address] [facility] [address] [place], [place] [address] 01/08/2025 8:30 AM EDT Office Visit [facility] OB [address] [place] [address] Cindy Goins, PA [address] [facility] [place] [address] 02/21/2025 9:00 AM EDT Office Visit [facility] [address] [place] [address] Jermain Davis MD [address] [place] [address] documented as of this encounter Procedures Procedure Name Priority Date/Time Associated Diagnosis Comments ECG 12-LEAD 12/12/2023 11:18 AM EDT documented in this encounter Results * ECG 12-LEAD (12/12/2023 11:18 AM EDT) Anatomical Region Laterality Modality Other 12/12/2023 11:1 8 AM EDT Narrative 12/12/2023 11:07 PM EDT The [address] [address] Electrocardiograph Report Signed Patient: Corrina Dobbs MR#: [id number] : 1980 Acct:[id number] Age/Sex: 43 / F ADM Date: 12/12/23 Loc: PST Attending Dr: Vineet Nieto D.O. Ordering Physician: Vineet Nieto D.O. Date of Service: 12/12/23 Procedure(s): ECG 12 lead Accession Number(s): [id number] cc: [facility] Test Date: 2023-12-12 Pat Name: Corrina Dobbs Department: Room: - Gender: Female Trash Hauler: : 1980 Requested By: VINEET NIETO Order Number: [id number] Reading MD: CELESTINO DEAN Measurements Intervals [place] Rate: 76 P: 60 DC: 131 QRS: 16 QRSD: 89 T: 29 QT: 349 QTc: 394 Interpretive Statements SINUS RHYTHM No previous ECG available for comparison Electronically Signed On 12-12-2023 23:07:04 EDT by CELESTINO DEAN Dictated By: Celestino Dean D.O. Signed By: 12/12/232306 DD/ 111 TD/TT: Associate Accountant: Procedure Note Radiology, Radiologist, - 12/12/2023 [place] [address] Electrocardiograph Report Signed Patient: Corrina Dobbs LMR#: [id number] : 1980Acct:[id number] Age/Sex: 43 / FADM Date: 12/12/23 Loc: [facility] Attending Dr: Vineet Nieto D.O. Ordering Physician: Vineet Nieto D.O. 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 Signed By:12/12/232306 DD/ 1118 TD/TT: Associate Accountant: us Generic External Data Provider [facility] Final Result documented in this encounter Visit Diagnoses Not on filedocumented in this encounter Care Teams Professional Model Relationship Specialty Start Date End Date Jermain Davis MD [address] [place] [address] PCP - General Family Medicine 06/05/23 documented as of this encounter
--- OUTSIDE RECORDS SUMMARY | 2024-11-25 12:40 | XMS_ITS | Encounter Summary ---
Author Organization [facility] Address [address] [place] [address] Care Team Providers Care Bond Runner Name Role Phone Jermain Davis MD Primary Care Provider [phone] Encounter Details Date Type Department Care Team (Late st Contact Info) Description 06/19/2023 [facility] [address] [place] [address] Jermain Davis MD [address] [place] [address] Social History Tobacco Use Types Packs/Day Years Used Date Smoking Tobacco: Former Cigarettes Smokeless Tobacco: Never Alcohol Use Standard Drinks/Week Comments Yes 0 (1 standard drink = 0.6 oz pure alcohol) drinks alcohol 2-4 times a month Comments Unknown Sex and Gender Information Value Date Recorded Sex Assigned at Not on file Legal Sex Female 7:27 PM EDT Gender Identity Female 07/27/2022 7:27 PM EDT Sexual Orientation Not on file documented as of this encounter Plan of Treatment Upcoming Encounters Date Type Department Care Team (Late st Contact Info) Description 12/04/2024 9:30 AM EDT Office Visit [facility] [address] [facility] [place] [phone] Cindy Goins PA [address] [place] [address] 01/08/2025 8:30 AM EDT Office Visit [facility] [address] [place] [address] Cindy Goins PA [address] [facility] [address] [place], [place] [phone] 02/21/2025 9:00 AM EDT Office Visit [facility] [address] [place] [address] Jermain Davis MD [address] [place] [address] documented as of this encounter Procedures Procedure Name Priority Date/Time Associated Diagnosis Comments MISCELLANEOUS LAB TEST Routine 04/14/2023 12:38 PM EST documented in this encounter Results * - Miscellaneous Test (04/14/2023 12:38 PM EST) Jermain Davis MD LAB BLOOD ORDERABLES Final Resul t documented in this encounter Visit Diagnoses Not on filedocumented in this encounter Care Teams Bond Runner Relationship Specialty Start Date End Date Jermain Davis MD [address] [place] [address] PCP - General Family Medicine 06/05/23 documented as of this encounter
--- OUTSIDE RECORDS SUMMARY | 2024-11-25 12:40 | XMS_ITS | Clinical Summary ---
Author Organization [facility] Address [id number] [address] [place] [address] Care Team Providers Care Graphic Design Intern Name Role Phone Jermain Davis MD Primary Care Provider [phone] Allergies Active Allergy Reactions Criticality Noted Date Comments Cefaclor Rash High 09/06/2016 Medications No known medications Active Problems No known active problems Family History Medical History Relation Name Comments No Known Problems Father No Known Problems Mother Relation Name Status Comments Father Mother Social History Tobacco Use Types Packs/Day Years Used Date Smoking Tobacco: Never Alcohol Use Standard Drinks/Week Comments No 0 (1 standard drink = 0.6 oz pur e alcohol) Childcare Answer Date Recorded Childcare Unknown 10/24/2018 Employment Answer Date Recorded Employment Unknown 10/24/2018 Purpose - Life Answer Date Recorded Purpose and direction in life Unknown Comments No Sex and Gender Information Value Date Recorded Sex Assigned at Female 03/17/2021 12:45 PM EDT Legal Sex Female 11:52 AM EDT Gender Identity Female 03/17/2021 12:45 PM EDT Sexual Orientation Not on file Last Filed Vital Signs Vital Sign Reading Time Taken Comments Blood Pressure 120/68 09/13/2016 5:45 PM EDT Pulse 68 09/13/2016 4:50 PM EDT Temperature 36.7 C (98.1 F) 09/13/2016 4:21 PM EDT Respiratory Rate 16 09/13/2016 5:30 PM EDT Oxygen Saturation 98% 09/13/2016 5:45 PM EDT Inhaled Oxygen Concentration - - Weight 66.7 kg (147 lb) 09/12/2018 7:32 AM EDT Height 162.6 cm (5' 4 ) 09/06/2016 10:19 AM EDT Body Mass Index 25.23 09/06/2016 10:19 AM EDT Plan of Treatment Health Maintenance Due Date Last Done Comments Depression Screening 1992 Tobacco Screening 1992 Adult BMI Screening 01/31/1998 DTaP,Tdap and Td Vaccines (2 - Td or Tdap) 12/31/2022 12/31/2012 COVID-19 Vaccine (3 - season) 2024, 08/12/2020 Influenza Vaccine 01/13/2025 02/06/2018 Pap Smear 09/19/2026 09/20/2023 Medical Devices Not on file Insurance [employer] Care Teams Graphic Design Intern Relationship Specialty Start Date End Date Jermain Davis MD PCP - General Family Medicine 04/12/23
--- OUTSIDE RECORDS SUMMARY | 2024-11-25 12:40 | XMS_ITS | Encounter Summary ---
Author Organization [facility] Address [address] [facility] [place] [address] Care Team Providers Care Virtual Assistant Name Role Phone Jermain Davis MD Primary Care Provider [phone] Encounter Details Date Type Department Care Team (Late st Contact Info) Description 08/22/2023 Orders Only [facility] [address] [place] [address] Jermain Davis MD [address] [place] [phone] Social History Tobacco Use Types Packs/Day Years [...] often do you attend chur ch or shinto services? More than 4 times per year 08/17/2023 Do you belong to any clubs o r organizations such as amish groups, unions, fraternal or athletic groups, or [...] and heating? Not hard at all 08/17/2023 [facility] of Occupat ional Health - Occupational Stress [...] place to sleep or slept in a halfway (including now)? No 08/17/2023 Comments Unknown Sex and Gender Information Value Date Recorded Sex Assigned at Not on file Legal Sex Female 7:27 PM EDT Gender Identity Female 07/27/2022 7:27 PM EDT Sexual Orientation Not on file documented as of this encounter Plan of Treatment Upcoming Encounters Date Type Department Care Team (Late st Contact Info) Description 12/04/2024 9:30 AM EDT Office Visit [facility] [address] [facility] [place] [phone] Cindy Goins PA [address] [place] [address] 01/08/2025 8:30 AM EDT Office Visit [facility] [address] [facility] [place] [phone] Cindy Goins PA [address] [facility] [address] [place], [place] [phone] 02/21/2025 9:00 AM EDT Office Visit [facility] [address] [place] [phone] Jermain Davis MD [address] [place] [address] documented as of this encounter Procedures Procedure Name Priority Date/Time Associated Diagnosis Comments MISCELLANEOUS LAB TEST Routine 08/18/2023 3:59 PM EDT documented in this encounter Results * - Miscellaneous Test (08/18/2023 3:59 PM EDT) Jermain Davis MD LAB BLOOD ORDERABLES Final Resul t documented in this encounter Visit Diagnoses Not on filedocumented in this encounter Care Teams Virtual Assistant Relationship Specialty Start Date End Date Jermain Davis MD [address] [place] [address] PCP - General Family Medicine 06/05/23 documented as of this encounter
--- OUTSIDE RECORDS SUMMARY | 2024-11-25 12:40 | XMS_ITS | Encounter Summary ---
Author Organization [facility] Address [address] [facility] [place] [address] Care Team Providers Care Planting Machine Crewman Name Role Phone Jermain Davis MD Primary Care Provider [phone] Encounter Details Date Type Department Care Team (Late st Contact Info) Description 01/24/2024 Orders Only [facility] [address] [place] [address] Jermain Davis MD [address] [place] [address] Social History Tobacco Use Types Packs/Day Years [...] any clubs o r organizations such as roman catholic groups, unions, fraternal or athletic groups, or [...] and heating? Not hard at all 08/17/2023 [facility] [place] of Occupat ional Health - Occupational Stress [...] EDT Office Visit [facility] [address] [facility] [place] [phone] Cindy Goins PA [address] [facility] [place] [address] 01/08/2025 8:30 AM EDT Office Visit [facility] [address] [facility] [place] [address] Cindy Goins PA [address] [facility] [place] [address] 02/21/2025 9:00 AM EDT Office Visit [facility] [address] [place] [address] Jermain Davis MD [address] [place] [address] documented as of this encounter Procedures Procedure Name Priority Date/Time Associated Diagnosis Comments HOLTER MONITOR 48 HOUR Routine 01/24/2024 7:25 AM EDT documented in this encounter Results * Holter monitor 48 hour (01/24/2024 7:25 AM EDT) Anatomical Region Laterality Modality Other Jermain Davis MD CV C[facility]IAC SERVICES PROCEDURES F inal Result documented in this encounter Visit Diagnoses Not on filedocumented in this encounter Care Teams Planting Machine Crewman Relationship Specialty Start Date End Date Jermain Davis MD [address] [place] [address] PCP - General Family Medicine 06/05/23 documented as of this encounter
--- OUTSIDE RECORDS SUMMARY | 2024-11-25 12:40 | XMS_ITS | Encounter Summary ---
Author Organization [facility] Address [address] [place] [address] Care Team Providers Care Laundry Tech Name Role Phone Jermain Davis MD Primary Care Provider [phone] Reason for Referral * OBGYN (Routine) - Closed Specialty Diagnoses / Procedures Referred By Contac t Referred To Contact Obstetrics and Gynecology Diagnoses Thickened endometrium Procedures [facility] OFFICE/OUTPATIENT [facility] MDM 60 MINUTES Ca Power CNM [address] [place] [address] Phone: tel: fax: Aris Nieto, [address] [place] [address] Phone: tel: fax: Referral ID Status Reason Start Date Expiration Date V isits Requested Visits Authorized [id number] Closed Specialty Services Required 10/05/2023 04/02/2024 1 1 Encounter Details Date Type Department Care Team (Late st Contact Info) Description 10/05/2023 Orders Only [facility] [address] [place] [phone] Ca Power CNM [address] [place], [place] [phone] Thickened endometrium (Primary Dx) Social History Tobacco Use Types Packs/Day Years [...] How often do you attend chur or mandaeism services? More than 4 times per year 08/17/2023 Do you belong to any clubs o r organizations such as yarsanism groups, unions, fraternal or athletic groups, or [...] and heating? Not hard at all 08/17/2023 [facility] of Occupat ional Health - Occupational Stress [...] 12/04/2024 9:30 AM EDT Office Visit [facility] OB [address] [facility] [place] [address] Cindy Goins PA [address] [place] [address] [place] [address] 01/08/2025 8:30 AM EDT Office Visit [facility] OB [address] [facility] [place] [address] Cindy Goins PA [address] [facility] [place] [address] 02/21/2025 9:00 AM EDT Office Visit [facility] [address] [place] [phone] Jermain Davis MD [address] [place] [address] Scheduled Referrals Name Type Priority Associated Diagnoses Orde r Schedule Ambulatory referral to Obstetrics / Gynecology Outpatient Referral Routine Thickened endometrium Expected: 10/05/2023 (Approximate), Expires: 04/06/2024 documented as of this encounter Visit Diagnoses Diagnosis Thickened endometrium- Primary Nonspecific (abnormal) findings on radiological and other examination of genitourinary organs documented in this encounter Care Teams Laundry Tech Relationship Specialty Start Date End Date Jermain Davis MD [address] [place] [address] PCP - General Family Medicine 06/05/23 documented as of this encounter
--- OUTSIDE RECORDS SUMMARY | 2024-11-25 12:40 | XMS_ITS | Clinical Summary ---
Author Organization [facility] Address [address] [place] [address] Care Team Providers Care Safety Consultant Name Role Phone Jermain Davis MD Primary Care Provider [phone] Allergies Active Allergy Reactions Criticality Noted Date Comments Cefaclor Rash,Unknown High 09/06/2016 Medications iron polysaccharides (ProFe) 391.3 (180 Fe) MG capsuleIndications:M enorrhagia with irregular cycle Take 1 capsule (391.3 mg) by mouth Daily 30 capsule 5 5 Active losartan (Cozaar) 25 MG tabletIndications:Be nign essential hypertension Take 1 tablet (25 mg) by mouth Daily 90 tablet 3 5 09/18/19 26 Active metoprolol tartrate (Lopressor) 25 MG tabletIndications:Pa lpitation Take 1 tablet (25 mg) by mouth in the morning and 1 tablet (25 mg) before bedtime. 60 tablet 3 5 Active Active Problems Problem Noted Date Diagnosed Date Perimenopausal 11/19/2024 Assessment & Plan (11/19/2024 10:29 AM EDT): Developed symptoms and monitor after surgery. May need hormone replacement. Encounter for long-term (current) use of medicat ions 09/05/2024 Annual physical exam 08/20/2024 Assessment & Plan (08/20/2024 9:35 AM EDT): Due for labs. Discussed proper diet and regular aerobic exercise. Need aerobic exercise 5-6 days a week for 30 minutes at a time. Smaller portions and limit total calories. Colonoscopy after age 45. Tetanus every 10 years. Advised not to smoke. Palpitation 01/17/2024 Assessment & Plan (02/20/2024 10:16 AM EDT): Holter without abnormal rhythm and symptoms likely related to anemia. Monitor. If persists could try metoprolol. Assessment & Plan (01/17/2024 11:55 AM EDT): Frequent symptoms and unclear etiology. Check labs and Holter. Benign essential hypertension 12/26/2023 Assessment & Plan (11/19/2024 10:28 AM EDT): BP controlled and monitor PRN. Assessment & Plan (08/20/2024 9:35 AM EDT): BP elevated and resume losartan. Discussed DASH diet. Assessment & Plan (02/20/2024 10:15 AM EDT): BP controlled and monitor PRN. Assessment & Plan (01/17/2024 11:54 AM EDT): BP improved and continue losartan. Continue to monitor PRN. Assessment & Plan (12/26/2023 12:02 PM EDT): BP elevated over the past few weeks and start treatment for HTN with losartan. Monitor BP PRN. Discussed DASH diet. Restless leg syndrome 08/17/2023 Stress reaction 08/17/2023 Assessment & Plan (08/17/2023 3:03 PM EDT): Increased stress which may be causing memory problems and fatigue. Discussed options and patient wants to monitor. Iron deficiency anemia due to chronic blood loss 08/17/2023 Assessment & Plan (02/20/2024 10:15 AM EDT): Hgb improved with iron supplement and continue. Follow with figure skater. Assessment & Plan (08/17/2023 3:02 PM EDT): Severe fatigue and history of anemia. Check labs. Patient should be on daily MVI with iron. Coccydynia 08/17/2023 Assessment & Plan (08/17/2023 3:02 PM EDT): Pain for years but no injury. Check x-ray to assess position. Treat with prednisone. Discussed off loading and cushions. Menorrhagia 08/17/2023 Assessment & Plan (11/19/2024 10:29 AM EDT): Able to proceed with upcoming surgery at low risk for complications. Recommend routine PAT. Assessment & Plan (08/20/2024 9:36 AM EDT): Continues to have heavy bleeding after ablation and resume iron supplement. Follow with figure skater. Assessment & Plan (08/17/2023 3:03 PM EDT): Heavy periods and check labs. Need to see figure skater. Status post arthroscopy of left shoulder 024 Resolved Problems Problem Noted Date Diagnosed Date Resolved Date Memory loss 08/17/2023 02/20/2024 Assessment & Plan (08/17/2023 3:03 PM EDT): Concerned of memory loss and dad with Alzheimer's. Likely related to stress and monitor. If worsens will need neurology evaluation and neuropsych eval. Shoulder stiffness, left 06/15/2023 Left shoulder pain 03/01/2023 Impingement of left shoulder 03/01/2023 06/15/2023 Encounters Date Type Department Care Team Description 11/20/2024 Orders Only [facility] [address] [place] [address] Jermain Davis MD Palpitation (Primary Dx) 11/19/2024 9:30 AM EDT Office Visit [facility] [address] [place] [address] Jermain Davis MD Benign essential hypertension (Primary Dx); Menorrhagia with regular cycle; Perimenopausal 11/19/2024 Bamboo flowsheet [facility] [address] [place] [address] Jermain Davis MD 11/18/2024 Travel 10/29/2024 8:50 AM EDT Consult [facility] OB [address] [place] [address] Aris Nieto DO Pre-op examination; Dyspareunia in female; Menorrhagia with regular cycle; Pelvic pain; Dysmenorrhea 10/29/2024 Bamboo flowsheet [facility] OB [address] [place] [address] Aris Nieto, 10/22/2024 Travel 09/17/2024 Refill [facility] FM [address] [place] [address] Jermain Davis MD Benign essential hypertension 09/09/2024 2:50 PM EDT Office Visit [facility] OB [address] [place] [address] Aris Nieto DO Menorrhagia with regular cycle; Abdominal cramping; Acute nonintractable headache, unspecified headache type; Low serum iron 09/09/2024 Bamboo flowsheet [facility] OB [address] [place] [address] Aris Nieto, 09/02/2024 Travel 08/28/2024 Results Follow-Up [facility] [address] [place] [address] Jermain Davis MD 08/27/2024 9:15 AM EDT Ancillary Procedure [facility] [address] [place] [phone] Follow-up examination of abnormal mammogram 08/27/2024 Travel 08/26/2024 Results Follow-Up [facility] [address] [place] [address] Jermain Davis MD 08/26/2024 Travel from Last 3 Months Family History Medical History Relation Name Comments Alzheimer's disease Father Hypertension Father Hypertension Mother Cancer Other maternal aunt Diabetes Other maternal aunt Diabetes Paternal Grandmother Relation Name Status Comments Father Mother Alive Other maternal aunt Paternal Grandmother Social History Tobacco Use Types Packs/Day Years Used Date Smoking Tobacco: Never Smokeless Tobacco: Never Tobacco Cessation:Counseling Given: Not Answered Alcohol Use Standard Drinks/Week Comments Not Currently [...] often do you attend chur ch or congregational services? More than 4 times per year [...] and heating? Not hard at all 08/17/2023 [facility] [place] of Occupat ional Health - Occupational Stress [...] place to sleep or slept in a senior living (including now)? No 08/17/2023 Comments No Sex [...] Mass Index 30.38 11/19/2024 9:35 AM EDT Plan of Treatment Upcoming Encounters Date Type Department Care Team (Late st Contact Info) Description 12/04/2024 9:30 AM EDT Office Visit [facility] OB [address] [place] [address] Cindy Goins PA [address] [facility] [place] [address] 01/08/2025 8:30 AM EDT Office Visit [facility] OB [address] [place] [address] Cindy Goins PA [address] [facility] [address] [place], [place] [phone] 02/21/2025 9:00 AM EDT [facility] [address] [place] [address] Jermain Davis MD [address] [place] [address] Health Maintenance Due Date Last Done Comments Influenza Vaccine (#1) 2025 02/06/2018 Mammogram 08/23/2025 08/23/2024, 04/14/2023 Cervical Cancer Screening 09/19/2028 HPV/Cotest 09/19/2028 Pap Smear 09/19/2028 09/20/2023 Procedures Procedure Name Priority Date/Time Associated Diagnosis Comments BI US BREAST LIMITED RIGHT Routine 08/27/2024 9:41 AM EDT Follow-up examination of abnormal mammogram BI MAMMOGRAM SCREENING TOMOSYNTHESIS BILATERAL Routine 08/23/2024 3:19 PM EDT Breast cancer screening by mammogram PAP SMEAR Routine 09/20/2023 12:00 AM EDT from Last 3 Months or Most Recently Relevant to Health Maintenance Results * Right breast US limited (08/27/2024 9:41 AM EDT) Anatomical Region Laterality Modality Breast Right Ultrasound 08/28/2024 11:5 4 AM EDT Impressions 08/28/2024 12:03 PM EDT Impression: Right breast ultrasound study demonstrates likely cysts as described. Finding at the 12 o'clock position appears distant from the nipple and may correlate with the benign-appearing asymmetric density noted on the mammogram study. When correlating all studies no convincing evidence of neoplasm. Follow-up ultrasound study of the right breast in 6 months to include similar images from the 10:00 to the 2 o'clock position including superior aspect of the breast extending to the axillary level as seen on the mammogram study from 08/23/2024 recommended to assess stability. BI-RADS 3 ELECTRONICALLY SIGNED BY: Juan Jose Cohen M.D. Narrative 08/28/2024 12:03 PM EDT Examination: BI US BREAST LIMITED RIGHT Reason for Study: abnormal mammogram Comparison: Screening mammogram study of the breasts dated 08/23/2024. Technique: Right breast ultrasound study was performed. Images were obtained from the 10:00 to the 2 o'clock position to include area of interest. Findings: At the 10 o'clock position area of decreased echogenicity likely representing a cyst measuring 0.5 x 0.5 x 0.2 cm approximately 5.3 cm from the nipple. At the 11 o'clock position area of decreased echogenicity likely representing a cyst measuring 0.3 x 0.3 x 0.3 cm approximately 5.1 cm from the nipple. At the 11 o'clock position area of decreased echogenicity likely representing a cyst measuring 0.4 x 0.3 x 0.2 cm and distant from the nipple. At the 12 o'clock position area of decreased echogenicity measuring 0.4 x 0.4 x 0.2 cm likely representing a cyst and distant from the nipple. This finding may correlate with the benign-appearing asymmetric density noted on the mammogram study. No obvious solid vascular mass to suggest neoplasm. When correlating all studies no convincing evidence of neoplasm. Jermain Davis MD IMG US PROCEDURES Final Result * (ABNORMAL) Bilateral screening mammogram with tomosynthesis (08/23/2024 3:19 PM EDT) Anatomical Region Laterality Modality Breast Bilateral Mammography 08/24/2024 2:0 8 PM EDT Impressions 08/24/2024 2:26 PM EDT Impression: No convincing evidence of neoplasm. Likely sebaceous cyst or other benign process on the right superiorly, anteriorly as noted on the MLO view. Finding appears slightly increased in size since prior exam which is of doubtful acute significance. Follow-up right breast ultrasound study with views suggested above recommended for further evaluation. BIRADS 0 - Incomplete: Needs Additional Imaging Evaluation DENSITY: The breasts are heterogeneously dense, which may obscure small masses. FOLLOW-UP: Ultrasound ELECTRONICALLY SIGNED BY: Juan Jose Cohen M.D. Narrative 08/24/2024 2:26 PM EDT Examination: BI MAMMOGRAM SCREENING TOMOSYNTHESIS BILATERAL Clinical History: Screening Technique: Screening digital mammography study of both breasts was performed with 2-D and 3-D tomosynthesis imaging. Study was compared to the prior exam dated 04/14/2023. Findings: No convincing evidence of interval dominant spiculated mass, grouped microcalcifications or skin thickening which would be suggestive of malignancy. A few benign-appearing calcifications are seen on the right. Small benign- appearing asymmetric density noted superiorly, anteriorly on the MLO view slightly increased in size since prior exam and most likely representing a sebaceous cyst or other benign process. Other possibly would be unlikely. Follow-up right breast ultrasound study is recommended for further evaluation. At the ultrasound setting images should be obtained superiorly from the 10:00 to the 2 o'clock position to include area of interest. Axillary lymph nodes including partially visualized axillary lymph nodes noted bilaterally which appear grossly unremarkable. us Jermain Davis MD IMG BI PROCEDURES Final Result * Pap Smear (09/20/2023 12:00 AM EDT) Swab Cervical swab / Unknown us Ca Power CNM LAB CYTOLOGY ORDERABLES Carol tay Result EXTERNAL LAB from Last 3 Months or Most Recently Relevant to Health Maintenance Insurance [employer] Care Teams Safety Consultant Relationship Specialty Start Date End Date Jermain Davis MD [address] [place] [address] PCP - General Family Medicine 06/05/23
--- OUTSIDE RECORDS SUMMARY | 2024-11-25 12:40 | XMS_ITS | Encounter Summary ---
Author Organization [facility] Address [address] [place] [address] Care Team Providers Care Miniature Set Builder Name Role Phone Jermain Davis MD Primary Care Provider [phone] Encounter Details Date Type Department Care Team (Latest Contact Info) Description 11/18/2024 Travel Social History Tobacco Use Types Packs/Day Years [...] any clubs o r organizations such as buddhist groups, unions, fraternal or athletic groups, or [...] heating? Not hard at all 08/17/2023 [facility] - Occupational Stress Questionnaire Answer Date [...] place to sleep or slept in a intermediate (including now)? No 08/17/2023 Comments No Sex [...] EDT Office Visit [facility] OB [address] [place] [phone] Cindy Goins, PA [address] [facility] [place] [address] 01/08/2025 8:30 AM EDT Office Visit [facility] OB [address] [facility] [place] [phone] Cindy Goins, PA [address] [facility] [place] [address] 02/21/2025 9:00 AM EDT Office Visit [facility] [address] [place] [address] eJrmain Davis MD [address] [place] [address] documented as of this encounter Visit Diagnoses Not on filedocumented in this encounter Care Teams Miniature Set Builder Relationship Specialty Start Date End Date Jermain Davis MD [address] [place] [address] PCP - General Family Medicine 06/05/23 documented as of this encounter
--- OUTSIDE RECORDS SUMMARY | 2024-11-25 12:40 | XMS_ITS | Encounter Summary ---
Author Organization [facility] Address [address] [place] [facility] [place] [address] Care Team Providers Care Checkman Name Role Phone Jermain Davis MD Primary Care Provider [phone] Encounter Details Date Type Department Care Team (Late st Contact Info) Description 11/20/2024 Orders Only [facility] [address] [place] [address] Jermain Davis MD [address] [place] [address] Palpitation (Primary Dx) Social History Tobacco Use Types [...] How often do you attend chur or congregational services? More than 4 times [...] heating? Not hard at all 08/17/2023 [facility] of Occupat ional [facility] - Occupational Stress Questionnaire Answer Date Recorded [...] place to sleep or slept in a long term (including now)? No 08/17/2023 Comments No Sex [...] Office Visit [facility] [address] [facility] [place] [address] Cindy Goins PA [address] [place] [address] 01/08/2025 8:30 AM EDT Office Visit [facility] OB [address] [facility] [place] [address] Cindy Goins PA [address] [facility] [place] [address] 02/21/2025 9:00 AM EDT Office Visit [facility] [address] [place] [address] Jermain Davis MD [address] [place] [address] documented as of this encounter Visit Diagnoses Diagnosis Palpitation- Primary Palpitations documented in this encounter Care Teams Checkman Relationship Specialty Start Date End Date Jermain Davis MD [address] [place] [address] PCP - General Family Medicine 06/05/23 documented as of this encounter
--- OUTSIDE RECORDS SUMMARY | 2024-11-25 13:02 | XMS_ITS | CCD ---
Author Organization [facility] Care Team Providers Care Cloth Shrinking Tester Name Role Phone DR JERMAIN SARABIA Admitting Unavailable NADERER, DR JERMAIN Gonzalez Attending Unavailable NADERER, DR JERMAIN Gonzalez Primary Care Unavailable NADERER, DR JERMAIN Gonzalez Consulting Unavailable Ryan SMITH, Jermain Primary Care Provider DO Vineet Nieto Attending Provider [phone] Vineet Nieto Attending Unavailable Gerson, Vineet Admitting Unavailable NADERER, JERMAIN Referring Unavailable NADERER, JERMAIN Primary Care Unavailable NADERER, JERMAIN Referring Unavailable NADERER, JERMAIN Primary Care Unavailable NADERER, JERMAIN Referring Unavailable NADERER, JERMAIN Primary Care Unavailable NADERER, JERMAIN Attending Unavailable NADERER, JERMAIN Referring Unavailable NADERER, JERMAIN Referring Unavailable GERSON, VINEET Attending Unavailable GERSON, VINEET Attending Unavailable NADERER, JERMAIN Attending Unavailable NADERER, JERMAIN Attending Unavailable GERSON, VINEET Attending Unavailable NADERER, JERMAIN Attending Unavailable NADERER, JERMAIN Attending Unavailable DOMINIQUE, CINDY Attending Unavailable Allergies Allergy Classification Reported Allergen(s) Allergy Type Date of Onset Reaction(s) Facility (20 sources) Cefaclor; Translations: [CEFACLOR] Drug Allergy 09-06-2016 Rash, Unknown [facility] Work Phone: Medications Current Medications Medication Drug Class(es) Dates Sig (Normalized) Sig (Original) ferrous sulfate 325 mg delayed release oral tablet (9 sources) Start: 08-21-2023 End: 02-20-2024 take 1 tablet by mouth in the morning ferrous sulfate (Fe Tabs) 325 (65 Fe) MG EC tablet Indications: Iron deficiency anemia due to chronic blood loss Take 1 tablet (325 mg) by mouth in the morning and at noon Do not crush, chew, or split. 60 tablet 5 08/21/2023 02/20/2024 Discontinued losartan potassium 25 mg oral tablet (20 sources) Angiotensin 2 Receptor Otto Start: 09-17-2024 End: 09-17-2025 take 1 tablet by mouth once daily losartan (Cozaar) 25 MG tablet Indications: Benign essential hypertension Take 1 tablet (25 mg) by mouth Daily 90 tablet 3 09/17/2024 09/17/2025 Active Start: 02-05-2024 End: 08-20-2024 take 1 tablet by mouth once daily losartan (Cozaar) 25 MG tablet Indications: Benign essential hypertension (CMS/HCC) Take 1 tablet (25 mg) by mouth Daily 30 tablet 5 08/20/2024 Active Start: 12-26-2023 take 1 tablet by isidro th once daily losartan (Cozaar) 25 MG tablet Indications: Benign essential hypertension (CMS/HCC) Take 1 tablet (25 mg) by mouth Daily 30 tablet 5 12/26/2023 Active metoprolol tartrate 25 mg oral tablet (1 source) beta-Adrenergic Otto Start: 11-20-2024 take 1 tablet by mouth in the morning metoprolol tartrate (Lopressor) 25 MG tablet Indications: Palpitation Take 1 tablet (25 mg) by mouth in the morning and 1 tablet (25 mg) before bedtime. 60 tablet 3 11/20/2024 Active Start: 11-20-2024 take 1 tablet by isidro th in the morning metoprolol tartrate (Lopressor) 25 MG tablet Indications: Palpitation Take 1 tablet (25 mg) by mouth in the morning and 1 tablet (25 mg) before bedtime. 60 tablet 3 11/20/2024 Active polysaccharide iron complex 391 mg oral capsule (19 sources) Start: 04-18-2024 End: 08-20-2024 take 1 capsule by mouth once daily iron polysaccharides (ProFe) 391.3 (180 Fe) MG capsule Indications: Menorrhagia with irregular cycle Take 1 capsule (391.3 mg) by mouth Daily 30 capsule 5 08/20/2024 Active Start: 02-12-2024 End: 03-13-2024 take 1 capsule by mouth once daily iron polysaccharides (ProFe) 391.3 (180 Fe) MG capsule Indications: Low hemoglobin Take 1 capsule (391.3 mg) by mouth Daily 30 capsule 6 02/12/2024 03/13/2024 Active Problems Active Problems Problem Classification Problem Date Documented Date Episodic/Chronic Abdominal pain (4 sources) Pain in female pelvis; Translations: [Pelvic and perineal pain] 01-10-2024 Episodic Anxiety disorders (20 sources) Acute stress disorder; Translations: [Acute stress reaction] Onset: 08-17-2023 08-17-2023 Chronic Cardiac dysrhythmias (20 sources) Palpitations; Translations: [Palpitations] Onset: 01-17-2024 02-20-2024 Episodic Deficiency and other anemia (1 source) Iron deficiency anemia secondary to blood loss (chronic); Translations: [Iron deficiency anemia secondary to blood loss (chronic)] Onset: 08-18-2023 Chronic Deficiency and other anemia (20 sources) Iron deficiency anemia due to blood loss; Translations: [Iron deficiency anemia secondary to blood loss (chronic)] Onset: 08-17-2023 02-20-2024 Chronic Essential hypertension (20 sources) Benign essential hypertension; Translations: [Essential (primary) hypertension] Onset: 12-26-2023 02-20-2024 Chronic Headache; including migraine (2 sources) Acute headache; Translations: [Acute nonintractable headache, unspecified headache type] 09-09-2024 Episodic Menopausal disorders (5 sources) Perimenopausal state; Translations: [Menopausal and female climacteric states] Onset: 11-19-2024 11-19-2024 Chronic Menstrual disorders (20 sources) Menorrhagia; Translations: [Excessive and frequent menstruation with regular cycle] Onset: 08-17-2023 08-17-2023 Chronic Nutritional deficiencies (2 sources) Serum iron low; Translations: [Iron deficiency] 09-09-2024 Episodic Other aftercare (3 sources) Surgical follow-up; Translations: [Encounter for follow-up examination after completed treatment for conditions other than malignant neoplasm] 02-26-2024 Episodic Other aftercare (9 sources) Long-term current use of drug therapy; Translations: [Other fdc (current) drug therapy] Onset: 09-05-2024 09-05-2024 Episodic Other female genital disorders (1 source) Abnormal uterine bleeding; Translations: [Abnormal uterine and vaginal bleeding, unspecified] 01-10-2024 Chronic Other female genital disorders (1 source) Pain in female genitalia on intercourse; Translations: [Unspecified dyspareunia] 10-29-2024 Chronic Other hereditary and degenerative nervous system conditions (20 sources) Restless legs; Translations: [Restless legs syndrome] Onset: 08-17-2023 08-17-2023 Chronic Other screening for suspected conditions (not mental disorders or infectious disease) (2 sources) Patient encounter status; Translations: [Encounter for screening mammogram for malignant neoplasm of breast] 08-20-2024 Episodic Past or Other Problems Problem Classification Problem Date Documented Date Episodic/Chronic Other non-traumatic joint disorders (20 sources) Pain in left shoulder; Translations: [Pain in joint, shoulder region] Onset: 03-01-2023 Resolved: 12-26-2023 06-15-2023 Episodic Other non-traumatic joint disorders (20 sources) Stiffness of left shoulder; Translations: [Stiffness of left shoulder, not elsewhere classified] Onset: 06-15-2023 Resolved: 12-26-2023 06-15-2023 Episodic Other non-traumatic joint disorders (20 sources) Disorder of shoulder; Translations: [Other specified joint disorders, left shoulder] Onset: 03-01-2023 Resolved: 06-15-2023 06-15-2023 Episodic Residual codes; unclassified (20 sources) History of arthroscopic procedure on shoulder; Translations: [Other specified postprocedural states] Onset: 06-15-2023 06-15-2023 Episodic Residual codes; unclassified (20 sources) Amnesia; Translations: [Other amnesia] Onset: 08-17-2023 Resolved: 02-20-2024 02-20-2024 Episodic Spondylosis; intervertebral disc disorders; other back problems (20 sources) Pain in the coccyx; Translations: [Sacrococcygeal disorders, not elsewhere classified] Onset: 08-17-2023 08-17-2023 Episodic Results Test Name Value Interpretation Reference Range Facility BI US BREAST LIMITED RIGHTon 08-27-2024 BI US BREAST LIMITED RIGHT This is a summary report. The complete report is available in the patient's medical record. If you cannot access the medical record, please contact the sending organization for a detailed fax or copy. Examination: BI US BREAST LIMITED RIGHT Reason [...] all studies no convincing evidence of neoplasm. IMPRESSION: Impression: Right breast ultrasound study demonstrates likely [...] ELECTRONICALLY SIGNED BY: Juan Jose Cohen M.D. Normal Not Available BI MAMMOGRAM SCREENING TOMOS YNTHESIS BILATERALon 08-23-2024 BI MAMMOGRAM SCREENING TOMOSYNTHESIS BILATERAL This is a summary report. The complete report is available in the patient's medical record. If you cannot access the medical record, please contact the sending organization for a detailed fax or copy. Examination: BI MAMMOGRAM SCREENING TOMOSYNTHESIS BILATERAL Clinical [...] calcifications are seen on the right. Small benign-appearing asymmetric density noted superiorly, anteriorly on the [...] nodes noted bilaterally which appear grossly unremarkable. IMPRESSION: Impression: No convincing evidence of neoplasm. Likely [...] ELECTRONICALLY SIGNED BY: Juan Jose Cohen M.D. Abnormal Not Available ALL CBC WITH AUTO DIFFon BASOPHILS ABSOLUTE AUTO 0.0 [facility] Basophils/100 WBC (Bld) 0.6 % 0.2 - 2.0 % [facility] Eosinophils/100 WBC (Bld) 3.7 % 0.9 - 7.0 % [facility] Erythrocyte distribution width (RBC) [Ratio] 12.7 % 11.0 - 15.0 % [facility] Hematocrit (Bld) [Volume fraction] 34.1 % Low 36.0 - 48.0 % [facility] Hemoglobin (Bld) [Mass/Vol] 10.9 g/dL Low 12.0 - 16.0 g/dL [facility] IMMATURE GRANULOCYTES ABS AUTO 0.01 [facility] Immature granulocytes/100 WBC (Bld) 0.2 % 0.0 - 0.5 % [facility] Interpretation and review of laboratory results Abnormal [facility] LYMPHOCYTES ABSOLUTE AUTO 1.6 [facility] Lymphocytes/100 WBC (Bld) 29.2 % 20.5 - 60.0 % [facility] MCH (RBC) [Entitic mass] 25.6 pg Low 26.7 - 34.0 pg [facility] MCHC (RBC) [Mass/Vol] 32.0 g/dL 29.9 - 35.2 g/dL [facility] MCV (RBC) [Entitic vol] 80.0 fL Low 81.0 - 99.0 fL [facility] MONOCYTES ABSOLUTE AUTO 0.4 [facility] Monocytes/100 WBC (Bld) 7.5 % 1.7 - 12.0 % [facility] NEUTROPHILS ABSOLUTE AUTO 3.2 [facility] Neutrophils/100 WBC (Bld) 58.8 % 43.0 - 75.0 % [facility] Platelet mean volume (Bld) [Entitic vol] 9.8 fL 9.5 - 13.5 fL [facility] TBH EO # 0.2 [facility] TB PLT 243 [facility] TB RBC 4.26 [facility] WBC 5.4 [facility] BASIC METABOLIC PANLon 01-16 Anion gap [Moles/Vol] 8 mmol/L Normal 5-15 [facility] Comment on above: Performed By: #### C DREW THYR, BMP #### [facility] ([id number]) [address] [place] [address] Calcium [Mass/Vol] 9.3 mg/dL Normal 8.5-10.5 [facility] Comment on above: Performed By: #### C DREW THYR, BMP #### [facility] ([id number]) [address], [address] [place] [address] Chloride [Moles/Vol] 103 mmol/L Normal 98-109 [facility] Comment on above: Performed By: #### C BCA THYR, BMP #### [facility] ([id number]) [address], [address] [place] [address] CO2 [Moles/Vol] 28 mmol/L Normal 22-32 [facility] Comment on above: Performed By: #### C BCA, THYR, BMP #### [facility] ([id number]) [address], [address] [place] [address] Creatinine [Mass/Vol] 0.66 mg/dL Normal 0.40-1.00 [facility] Comment on above: Result Comment: METH OD TRACEABLE TO IDMS STANDARD Performed By: #### C ANNA RUSSELL, BMP #### [facility] ([id number]) [address], [address] [place] [address] eGFR (CKD-EPI) NON-RACE DEPENDENT >90 Normal >59 [facility] Comment on above: Result Comment: Reported eGFR is based on the CKD-EPI 2020 equation that does not use a race coefficient. Performed By: #### C DREW THYNghia, BMP #### [facility] ([id number]) [address], [facility] [address] [place] [address] Glucose [Mass/Vol] 86 mg/dL Normal 65-99 [facility] Comment on above: Performed By: #### C DREW THYNghia, BMP #### [facility] ([id number]) [address] [address] [place] [address] Potassium [Moles/Vol] 4.5 mmol/L Normal 3.5-5.0 [facility] Comment on above: Performed By: #### C DREW THYNghia BMP #### [facility] ([id number]) [address], [facility] [address] [place] [address] Sodium [Moles/Vol] 139 mmol/L Normal 134-146 [facility] Comment on above: Performed By: #### C DREW THYNghia, BMP #### [facility] ([id number]) [address] [address] [place] [address] Urea nitrogen [Mass/Vol] 16 mg/dL Normal 5-23 [facility] Comment on above: Performed By: #### C DREW THYR, BMP #### [facility] ([id number]) [address] [address] [place] [address] CBC AND AUTO DIFFon 01-17-20 24 ABSOLUTE BASOPHIL 0.0 X10E9/L Normal 0.0-0.2 [facility] Comment on above: Performed By: #### C BCA, THYR, BMP #### [facility] ([id number]) [address], [address] [place] [address] ABSOLUTE NEUTROPHIL 3.6 X10E9/L Normal 1.5-6.6 [facility] Comment on above: Performed By: #### C BCA, THYR, BMP #### [facility] ([id number]) [address], [address] [place] [address] Basophils/100 WBC (Bld) 0.6 % Normal [facility] Comment on above: Performed By: #### C BCA, THYR, BMP #### [facility] ([id number]) [address], [address] [place] [address] Eosinophils (Bld) [#/Vol] 0.1 10*3/uL Normal 0.0-0.4 [facility] Comment on above: Performed By: #### C BCA, THYR, BMP #### [facility] ([id number]) [address], [address] [place] [address] Eosinophils/100 WBC (Bld) 2.2 % Normal [facility] Comment on above: Performed By: #### C BCA, THYR, BMP #### [facility] ([id number]) [address], [address] [place] [address] Erythrocyte distribution width (RBC) [Ratio] 14.4 % Normal 11.5-15.0 [facility] Comment on above: Performed By: #### C BCA, THYR, BMP #### [facility] ([id number]) [address] [address] [place] [address] Hematocrit (Bld) [Volume fraction] 35.0 % Normal 35-47 [facility] Comment on above: Performed By: #### C BCA, THYR, BMP #### [facility] ([id number]) [address], [address] [place] [address] Hemoglobin (Bld) [Mass/Vol] 12.0 g/dL Normal 11.7-15.5 [facility] Comment on above: Performed By: #### Evan RUSSELL THYR, BMP #### [facility] ([id number]) [address], [address] [place] [address] Lymphocytes (Bld) [#/Vol] 1.9 10*3/uL Normal 1.0-3.5 [facility] Comment on above: Performed By: #### C DREW THYR, BMP #### [facility] ([id number]) [address], [facility] [address] [place] [address] Lymphocytes/100 WBC (Bld) 31.0 % Normal [facility] Comment on above: Performed By: #### Evan RUSSELL THYR, BMP #### [facility] ([id number]) [address], [address] [place] [address] MCH (RBC) [Entitic mass] 27.3 pg Normal 27-34 [facility] Comment on above: Performed By: #### C DREW THYR, BMP #### [facility] ([id number]) [address], [address] [place] [address] MCHC (RBC) [Mass/Vol] 34.1 g/dL Normal 32-36 [facility] Comment on above: Performed By: #### Evan RUSSELL THYR, BMP #### [facility] ([id number]) [address], [address] [place] [address] MCV (RBC) [Entitic vol] 80 fL Normal 80-100 [facility] Comment on above: Performed By: #### Evan BCA, THYR, BMP #### [facility] ([id number]) [address], [address] [place] [address] Monocytes (Bld) [#/Vol] 0.4 10*3/uL Normal 0-0.9 [facility] Comment on above: Performed By: #### C DREW THYR, BMP #### [facility] ([id number]) [address], [address] [place] [address] Monocytes/100 WBC (Bld) 6.5 % Normal [facility] Comment on above: Performed By: #### C DREW THYR, BMP #### [facility] ([id number]) [address], [address] [place] [address] Neutrophils/100 WBC (Bld) 59.7 % Normal [facility] Comment on above: Performed By: #### C DREW THYR, BMP #### [facility] ([id number]) [address], [address] [place] [address] Platelet mean volume (Bld) [Entitic vol] 9.1 fL Normal 7-12 [facility] Comment on above: Performed By: #### C DREW THYR, BMP #### [facility] ([id number]) [address], [address] [place] [address] Platelets (Bld) [#/Vol] 313 10*3/uL Normal 150-450 [facility] Comment on above: Performed By: #### C DREW THYR, BMP #### [facility] ([id number]) [address], [address] [place] [address] RBC COUNT 4.39 X10E12/L Normal 3.80-5.20 [facility] Comment on above: Performed By: #### C DREW THYR, BMP #### [facility] ([id number]) [address], [address] [place] [address] WBC (Bld) [#/Vol] 6.1 10*3/uL Normal 4.0-11.0 [facility] Comment on above: Performed By: #### C DREW THYR, BMP #### [facility] ([id number]) [address], [address] [place] [address] THYROID PROFILEon 01-17-2024 Free T4 [Mass/Vol] 0.96 ng/dL Normal 0.61-1.60 [facility] Comment on above: Performed By: #### C BCA, THYR, BMP #### [facility] ([id number]) [address] [place] [address] TSH 0.60 uIU/mL Normal 0.49-4.67 [facility] Comment on above: Performed By: #### C DREW, THYR, BMP #### [facility] ([id number]) [address], [address] [place] [address] Pathology Request for Lab Co rpon 12-22-2023 Pathology Request for Lab Radha Normal [facility] Comment on above: Order Comment: PATHO LOGY MICROFABRICATION ENGINEER MANAGER SPECIMEN Result Comment: See report. Scanned copy available in EMR. PERFORMED BY: [place] [address] PATHOLOGIST HOOP PUNCH OPERATOR HELPER WENDY FERRARO M.D. Performed By: #### P ATH TO [facility] #### [address] CBC AND AUTO DIFFon 08-18-19 ABSOLUTE BASOPHIL 0.0 X10E9/L Normal 0.0-0.2 [facility] Comment on above: Performed By: #### C BCA #### [facility] ([id number]) [address], [address] [place] [address] ABSOLUTE NEUTROPHIL 3.5 X10E9/L Normal 1.5-6.6 [facility] Comment on above: Performed By: #### C BCA #### [facility] ([id number]) [address], [address] [place] [address] Basophils/100 WBC (Bld) 0.9 % Normal [facility] Comment on above: Performed By: #### C BCA #### [facility] ([id number]) [address], [address] [place] [address] Eosinophils (Bld) [#/Vol] 0.1 10*3/uL Normal 0.0-0.4 [facility] Comment on above: Performed By: #### C BCA #### [facility] ([id number]) [address], [address] [place] [address] Eosinophils/100 WBC (Bld) 1.7 % Normal [facility] Comment on above: Performed By: #### C BCA #### [facility] ([id number]) [address], [address] [place] [address] Erythrocyte distribution width (RBC) [Ratio] 17.5 % High 11.5-15.0 [facility] Comment on above: Performed By: #### C BCA #### [facility] ([id number]) [address], [address] [place] [address] Hematocrit (Bld) [Volume fraction] 27.0 % Low 35-47 [facility] Comment on above: Performed By: #### C BCA #### [facility] ([id number]) [address], [address] [place] [address] Hemoglobin (Bld) [Mass/Vol] 8.0 g/dL Low 11.7-15.5 [facility] Comment on above: Performed By: #### C BCA #### [facility] ([id number]) [address], [address] [place] [address] Lymphocytes (Bld) [#/Vol] 1.1 10*3/uL Normal 1.0-3.5 [facility] Comment on above: Performed By: #### C BCA #### [facility] ([id number]) [address], [address] [place] [address] Lymphocytes/100 WBC (Bld) 21.3 % Normal [facility] Comment on above: Performed By: #### C BCA #### [facility] ([id number]) [address], [address] [place] [address] MCH (RBC) [Entitic mass] 18.7 pg Low 27-34 [facility] Comment on above: Performed By: #### C BCA #### [facility] ([id number]) [address], [address] [place] [address] MCHC (RBC) [Mass/Vol] 29.6 g/dL Low 32-36 [facility] Comment on above: Performed By: #### C BCA #### [facility] ([id number]) [address] [place] [address] MCV (RBC) [Entitic vol] 63 fL Low 80-100 [facility] Comment on above: Performed By: #### C BCA #### [facility] ([id number]) [address], [address] [place] [address] Monocytes (Bld) [#/Vol] 0.3 10*3/uL Normal 0-0.9 [facility] Comment on above: Performed By: #### C BCA #### [facility] ([id number]) [address], [address] [place] [address] Monocytes/100 WBC (Bld) 6.5 % Normal [facility] Comment on above: Performed By: #### C BCA #### [facility] ([id number]) [address], [address] [place] [address] Neutrophils/100 WBC (Bld) 69.6 % Normal [facility] Comment on above: Performed By: #### C BCA #### [facility] ([id number]) [address], [address] [place] [address] OVALOCYTE 1+ Abnormal NONE [facility] Comment on above: Performed By: #### C BCA #### [facility] ([id number]) [address], [address] [place] [address] Platelet mean volume (Bld) [Entitic vol] 8.7 fL Normal 7-12 [facility] Comment on above: Performed By: #### C BCA #### [facility] ([id number]) [address], [address] [place] [address] Platelets (Bld) [#/Vol] 237 10*3/uL Normal 150-450 [facility] Comment on above: Performed By: #### C BCA #### [facility] ([id number]) [address], [address] [place] [address] POLYCHROMASIA 1+ Abnormal NONE [facility] Comment on above: Performed By: #### C BCA #### [facility] ([id number]) [address] [place] [address] RBC COUNT 4.29 X10E12/L Normal 3.80-5.20 [facility] Comment on above: Performed By: #### C BCA #### [facility] ([id number]) [address], [address] [place] [address] WBC (Bld) [#/Vol] 5.1 10*3/uL Normal 4.0-11.0 [facility] Comment on above: Performed By: #### C BCA #### [facility] ([id number]) [address], [address] [place] [address] CBC AUTO DIFFon 08-03-2021 BASO # 0.0 103/ul Normal 0.0-0.1 [facility] Comment on above: Performed By: #### C BC #### [facility] [address] [address] [address] Dee Tafoya Basophils/100 WBC (Bld) 0.5 % Normal 0.2-2.0 [facility] Comment on above: Performed By: #### C BC #### [facility] [facility] [address] [place] [address] Dr. Dee Tafoya EO # 0.1 103/ul Normal 0.0-0.7 [facility] Comment on above: Performed By: #### C BC #### [facility] [address] [place] [address] Dr. Dee Tafoya Eosinophils/100 WBC (Bld) 0.9 % Normal 0.9-7.0 [facility] Comment on above: Performed By: #### C BC #### [facility] [address] [place] [address] Dr. Dee Tafoya Erythrocyte distribution width (RBC) [Ratio] 15.9 % Critically high 11.0-15.0 [facility] Comment on above: Performed By: #### C BC #### [facility] [address] [place] [address] Dr. Dee Tafoya Hematocrit (Bld) [Volume fraction] 30.0 % Critically low 36.0-48.0 [facility] Comment on above: Performed By: #### C BC #### [facility] [address] [place] [address] Dr. Dee Tafoya Hemoglobin (Bld) [Mass/Vol] 8.7 g/dL Critically low 12.0-16.0 [facility] Comment on above: Performed By: #### C BC #### [facility] [address] [place] [address] Dr. Dee Tafoya IG # 0.02 10e3/ul Normal 0.00-0.03 [facility] Comment on above: Performed By: #### C BC #### [facility] [address] [place] [address] Dr. Dee Tafoya IG % 0.3 % Normal 0.0-0.5 [facility] Comment on above: Performed By: #### C BC #### [facility] [address] [place] [address] Dr. Dee Tafoya LYMPH # 1.1 103/ul Critically low 1.2-3.8 [facility] Comment on above: Performed By: #### C BC #### [facility] [address] [place] [address] Dr. Dee Tafoya Lymphocytes/100 WBC (Bld) 16.8 % Critically low 20.5-60.0 [facility] Comment on above: Performed By: #### C BC #### [facility] [address] [place] [address] Dr. Dee Tafoya MANUAL DIFF REQ NO Normal [facility] Comment on above: Performed By: #### C BC #### [facility] [address] [place] [address] Dr. Dee Tafoya MCH (RBC) [Entitic mass] 20.3 pg Critically low 26.7-34.0 [facility] Comment on above: Performed By: #### C BC #### [facility] [address] [place] [address] Dr. Dee Tafoya MCHC (RBC) [Mass/Vol] 29.0 g/dL Critically low 29.9-35.2 [facility] Comment on above: Performed By: #### C BC #### [facility] [address] [place] [address] Dr. Dee Tafoya MCV (RBC) [Entitic vol] 69.9 fL Critically low 81.0-99.0 [facility] Comment on above: Performed By: #### C BC #### [facility] [address] [place] [address] Dr. Dee Tafoya MONO # 0.3 103/ul Normal 0.3-0.8 [facility] Comment on above: Performed By: #### C BC #### [facility] [address] [place] [address] Dr. Dee Tafoya Monocytes/100 WBC (Bld) 5.2 % Normal 1.7-12.0 [facility] Comment on above: Performed By: #### C BC #### [facility] [address] [place] [address] Dr. Dee Tafoya NEUT # 4.9 103/ul Normal 1.4-6.5 [facility] Comment on above: Performed By: #### C BC #### [facility] [address] [address] [address] Dee Tafoya Neutrophils/100 WBC (Bld) 76.3 % Critically high 43.0-75.0 [facility] Comment on above: Performed By: #### C BC #### [facility] [address] [address] [address] Dee Tafoya Platelet mean volume (Bld) [Entitic vol] 10.2 fL Normal 9.5-13.5 [facility] Comment on above: Performed By: #### C BC #### [facility] [address] [address] [address] Dee Tafoya PLT 267 103/ul Normal 150-450 [facility] Comment on above: Performed By: #### C BC #### [facility] [address] [place] [address] Dr. Dee Tafoya RBC 4.29 106/ul Normal 4.20-5.40 [facility] Comment on above: Performed By: #### C BC #### [facility] [address] [place] [address] Dr. Dee Tafoya WBC 6.4 103/ul Normal 4.0-11.0 [facility] Comment on above: Performed By: #### C BC #### [facility] [address] [place] [address] Dr. Dee Tafoya GLYCOHEMOGLOBIN A1Con 2021 ADA RECOMMENDATION ADA THERAPEUTIC TARG ET 6.0 - 7.0 ACTION SUGGESTED > 7.0 Normal [facility] Comment on above: Performed By: #### A 1C #### [facility] [address] [place] [address] Dr. Dee Tafoya Glucose [Mass/Vol] 100 mg/dL Normal [facility] Comment on above: Performed By: #### A 1C #### [facility] [address] [place] [address] Dr. Dee Tafoya HbA1c (Bld) [Mass fraction] 5.1 % Normal <=6.0 [facility] Comment on above: Performed By: #### A 1C #### [facility] [address] [address] [address] Dee Tafoya LIPID PROFILEon 08-03-2021 CHOL-HDL RATIO NORM SEE BELOW Normal [facility] Comment on above: Result Comment: 3.3 - 4.4 LOW RISK 4.4 - 7.1 AVERAGE RISK 7.1 - 11.0 MODERATE RISK >11.0 HIGH RISK Performed By: #### L IPID, LIVER, TSH, BMP #### [facility] [address] [address] [address] Dee Tafoya Cholesterol [Mass/Vol] 151 mg/dL Normal <=200 [facility] Comment on above: Performed By: #### L IPID, LIVER, TSH, BMP #### [facility] [address] [address] [address] Dee Tafoya Cholesterol in HDL [Mass/Vol] 43 mg/dL Normal 40-60 [facility] Comment on above: Performed By: #### L IPID, LIVER, TSH, BMP #### [facility] [address] [address] [address] Dee Tafoya Cholesterol in LDL [Mass/Vol] 90.2 mg/dL Normal [facility] Comment on above: Performed By: #### L IPID, LIVER, TSH, BMP #### [facility] [address] [address] [address] Dee Tafoya Cholesterol.total/C holesterol in HDL [Mass ratio] 3.5 {ratio} Normal [facility] Comment on above: Performed By: #### L IPID, LIVER, TSH, BMP #### [facility] [address] [address] [address] Dee Tafoya HDL NORMAL > or = 60 mg/dl - LO W CARDIOVASCULAR RISK <40 mg/dl - HIGH CARDIOVASCULAR RISK Normal [facility] Comment on above: Performed By: #### L IPID, LIVER, TSH, BMP #### [facility] [address] [address] [address] Dee Tafoya LDL CALC NORMAL SEE BELOW Normal [facility] Comment on above: Result Comment: <100 mg/dl OPTIMAL 100 - 129 mg/dl NEAR OR ABOVE OPTIMAL 130 - 159 mg/dl BORDERLINE HIGH 160 - 189 mg/dl HIGH >190 mg/dl VERY HIGH Performed By: #### L IPID, LIVER, TSH, BMP #### [facility] [address] [address] [address] Dee Tafoya Triglyceride [Mass/Vol] 89 mg/dL Normal <=150 [facility] Comment on above: Performed By: #### L IPID, LIVER, TSH, BMP #### [facility] [address] [address] [address] Dee Tafoya VLDL CALC 17.8 mg/dL Normal [facility] Comment on above: Performed By: #### L IPID, LIVER, TSH, BMP #### [facility] [address] [address] [address] Dee Tafoya LIVER PROFILEon 08-03-2021 Albumin [Mass/Vol] 4.0 g/dL Normal 3.4-5.0 [facility] Comment on above: Performed By: #### L IPID, LIVER, TSH, BMP #### [facility] [address] [address] [address] Dee Tafoya Albumin/Globulin [Mass ratio] 1.1 {ratio} Normal [facility] Comment on above: Performed By: #### L IPID, LIVER, TSH, BMP #### [facility] [address] [address] [address] Dee Tafoya ALP [Catalytic activity/Vol] 65 U/L Normal 46-116 [facility] Comment on above: Performed By: #### L IPID, LIVER, TSH, BMP #### [facility] [address] [address] [address] Dee Tafoya ALT [Catalytic activity/Vol] 19 U/L Normal 14-59 [facility] Comment on above: Performed By: #### L IPID, LIVER, TSH, BMP #### [facility] [address] [address] [address] Dee Tafoya AST [Catalytic activity/Vol] 14 U/L Critically low 15-37 [facility] Comment on above: Performed By: #### L IPID, LIVER, TSH, BMP #### [facility] [address] [place] [address] Dr. Dee Tafoya BILI, CONJUGATED 0.1 mg/dL Normal 0.0-0.3 [facility] Comment on above: Performed By: #### L IPID, LIVER, TSH, BMP #### [facility] [address] [place] [address] Dr. Dee Tafoya Bilirubin [Mass/Vol] 0.5 mg/dL Normal 0.2-1.3 [facility] Comment on above: Performed By: #### L IPID, LIVER, TSH, BMP #### [facility] [address] [place] [address] Dr. Dee Tafoya Globulin (S) [Mass/Vol] 3.6 g/dL Normal [facility] Comment on above: Performed By: #### L IPID, LIVER, TSH, BMP #### [facility] [address] [place] [address] Dr. Dee Tafoya Protein [Mass/Vol] 7.6 g/dL Normal 6.1-8.2 [facility] Comment on above: Performed By: #### L IPID, LIVER, TSH, BMP #### [facility] [address] [place] [address] Dr. Dee Tafoya PROF CHEM 8 (BAS METB)on Anion gap [Moles/Vol] 13.3 mmol/L Normal [facility] Comment on above: Performed By: #### L IPID, LIVER, TSH, BMP #### [facility] [address] [place] [address] Dr. Dee Tafoya Calcium [Mass/Vol] 8.3 mg/dL Critically low 8.5-10.1 [facility] Comment on above: Performed By: #### L IPID, LIVER, TSH, BMP #### [facility] [address] [place] [address] Dr. Dee Tafoya Chloride [Moles/Vol] 105 mmol/L Normal 98-107 [facility] Comment on above: Performed By: #### L IPID, LIVER, TSH, BMP #### [facility] [address] [address] [address] Dee Tafoya CO2 [Moles/Vol] 24.8 mmol/L Normal 22.0-30.0 [facility] Comment on above: Performed By: #### L IPID, LIVER, TSH, BMP #### [facility] [address] [address] [address] Dee Tafoya Creatinine [Mass/Vol] 0.67 mg/dL Normal 0.52-1.04 [facility] Comment on above: Performed By: #### L IPID, LIVER, TSH, BMP #### [facility] [address] [address] [address] Dee Tafoya EGFR-AF DANISH >60 Normal >=60 [facility] Comment on above: Performed By: #### L IPID, LIVER, TSH, BMP #### [facility] [address] [address] [address] Dee Tafoya EGFR-NON AF DANISH >60 Normal >=60 [facility] Comment on above: Performed By: #### L IPID, LIVER, TSH, BMP #### [facility] [address] [address] [address] Dee Tafoya Glucose [Mass/Vol] 95 mg/dL Normal 74-106 [facility] Comment on above: Performed By: #### L IPID, LIVER, TSH, BMP #### [facility] [address] [address] [address] Dee Tafoya Potassium [Moles/Vol] 4.1 mmol/L Normal 3.4-5.0 [facility] Comment on above: Performed By: #### L IPID, LIVER, TSH, BMP #### [facility] [address] [address] [address] Dee Tafoya Sodium [Moles/Vol] 139 mmol/L Normal 137-145 [facility] Comment on above: Performed By: #### L IPID, LIVER, TSH, BMP #### [facility] [address] [address] [address] Dee Tafoya Urea nitrogen [Mass/Vol] 12.0 mg/dL Normal 7.0-18.0 [facility] Comment on above: Performed By: #### L IPID, LIVER, TSH, BMP #### [facility] [address] [place] [address] Dr. Dee Tafoya Urea nitrogen/Creatinine [Mass ratio] 17.9 mg/mg Normal [facility] Comment on above: Performed By: #### L IPID, LIVER, TSH, BMP #### [facility] [address] [address] [address] Dee Tafoya TSHon 08-03-2021 TSH 0.679 uIU/mL Normal 0.470-4.680 [facility] Comment on above: Performed By: #### L IPID, LIVER, TSH, BMP #### [facility] [address] [place] [address] Dr. Dee Tafoya TSH RANGE SEE BELOW Normal [facility] Comment on above: Result Comment: <0.3 4 UIU/ml HYPERTHYROID 0.34-5.60 UIU/ml EUTHYROID >5.60 UIU/ml HYPOTHYROID Performed By: #### L IPID, LIVER, TSH, BMP #### [facility] [address] [place] [address] Dr. Dee Tafoya Vital Signs Date Time Vital Sign Value Performing Clinician Lula cortez 11-19-2024 09:35-0400 Body height 162.6 cm Jermain Sarabia MD Work Phone: [facility] 11-19-2024 09:35-0400 Body mass index (BMI) [Ratio] 30.38 kg/m2 Jermain Sarabia MD Work Phone: [facility] 11-19-2024 09:35-0400 Body temperature 98.2 [degF] Jermain Sarabia MD Work Phone: [facility] 11-19-2024 09:35-0400 Body weight 80.29 kg Jermain Sarabia MD Work Phone: [facility] 11-19-2024 09:35-0400 Diastolic blood pressure 76 mm[Hg] Jermain Sarabia MD Work Phone: [facility] 11-19-2024 09:35-0400 Heart rate 36 /min Jermain Sarabia MD Work Phone: [facility] 11-19-2024 09:35-0400 Respiratory rate 22 /min Jermain Sarabia MD Work Phone: [facility] 11-19-2024 09:35-0400 SaO2% (BldA) [Mass fraction] 98 % Jermain Sarabia MD Work Phone: [facility] 11-19-2024 09:35-0400 Systolic blood pressure 134 mm[Hg] Jermain Sarabia MD Work Phone: [facility] 10-29-2024 08:53-0400 Body mass index (BMI) [Ratio] 30.42 kg/m2 Vineet Gerson DO Work Phone: [facility] 10-29-2024 08:53-0400 Body weight 80.4 kg Vineet Gerson DO Work Phone: [facility] 10-29-2024 08:53-0400 Diastolic blood pressure 90 mm[Hg] Vineet Gerson DO Work Phone: [facility] 10-29-2024 08:53-0400 Systolic blood pressure 130 mm[Hg] Vineet Gerson DO Work Phone: [facility] 09-09-2024 15:17-0400 Body mass index (BMI) [Ratio] 29.83 kg/m2 Vineet Gerson DO Work Phone: [facility] 09-09-2024 15:17-0400 Body weight 78.83 kg Vineet Gerson DO Work Phone: [facility] 09-09-2024 15:17-0400 Diastolic blood pressure 68 mm[Hg] Vineet Gerson DO Work Phone: [facility] 09-09-2024 15:17-0400 Systolic blood pressure 112 mm[Hg] Vineet Gerson DO Work Phone: [facility] 08-20-2024 09:11-0400 Body height 162.6 cm Jermain Sarabia MD Work Phone: [facility] 08-20-2024 09:11-0400 Body mass index (BMI) [Ratio] 29.87 kg/m2 Jermain Sarabia MD Work Phone: [facility] 08-20-2024 09:11-0400 Body temperature 96.6 [degF] Jermain Sarabia MD Work Phone: [facility] 08-20-2024 09:11-0400 Body weight 78.93 kg Jermain Sarabia MD Work Phone: [facility] 08-20-2024 09:11-0400 Diastolic blood pressure 104 mm[Hg] Jermain Sarabia MD Work Phone: [facility] 08-20-2024 09:11-0400 Heart rate 93 /min Jermain Sarabia MD Work Phone: [facility] 08-20-2024 09:11-0400 Respiratory rate 20 /min Jermain Sarabia MD Work Phone: [facility] 08-20-2024 09:11-0400 SaO2% (BldA) [Mass fraction] 99 % Jermain Sarabia MD Work Phone: [facility] 08-20-2024 09:11-0400 Systolic blood pressure 158 mm[Hg] Jermain Sarabia MD Work Phone: [facility] 02-26-2024 09:02-0400 Body mass index (BMI) [Ratio] 31.03 kg/m2 Cindy JACKSON Work Phone: [facility] 02-26-2024 09:02-0400 Body weight 82.01 kg Cindy JACKSON Work Phone: [facility] 02-26-2024 09:02-0400 Diastolic blood pressure 80 mm[Hg] iCndy JACKSON Work Phone: [facility] 02-26-2024 09:02-0400 Systolic blood pressure 122 mm[Hg] Cindy JACKSON Work Phone: [facility] 02-20-2024 09:48-0400 Body height 162.6 cm Jermain Sarabia MD Work Phone: [facility] 02-20-2024 09:48-0400 Body mass index (BMI) [Ratio] 30.73 kg/m2 Jermain Sarabia MD Work Phone: [facility] 02-20-2024 09:48-0400 Body temperature 98.4 [degF] Jermain Sarabia MD Work Phone: [facility] 02-20-2024 09:48-0400 Body weight 81.19 kg Jermain Sarabia MD Work Phone: [facility] 02-20-2024 09:48-0400 Diastolic blood pressure 80 mm[Hg] Jermain Sarabia MD Work Phone: [facility] 02-20-2024 09:48-0400 Heart rate 89 /min Jermain Sarabia MD Work Phone: [facility] 02-20-2024 09:48-0400 Respiratory rate 22 /min Jermain Sarabia MD Work Phone: [facility] 02-20-2024 09:48-0400 SaO2% (BldA) [Mass fraction] 99 % Jermain Sarabia MD Work Phone: [facility] 02-20-2024 09:48-0400 Systolic blood pressure 120 mm[Hg] Jermain Sarabia MD Work Phone: [facility] 01-17-2024 11:10-0400 Body height 162.6 cm Jermain Sarabia MD Work Phone: [facility] 01-17-2024 11:10-0400 Body mass index (BMI) [Ratio] 30.38 kg/m2 Jermain Sarabia MD Work Phone: [facility] 01-17-2024 11:10-0400 Body temperature 97.81 [degF] Jeramin Sarabia MD Work Phone: [facility] 01-17-2024 11:10-0400 Body weight 80.29 kg Jermain Sarabia MD Work Phone: [facility] 01-17-2024 11:10-0400 Diastolic blood pressure 80 mm[Hg] Jermain Sarabia MD Work Phone: [facility] 01-17-2024 11:10-0400 Heart rate 100 /min Jermain Sarabia MD Work Phone: [facility] 01-17-2024 11:10-0400 Respiratory rate 20 /min Jermain Sarabia MD Work Phone: [facility] 01-17-2024 11:10-0400 SaO2% (BldA) [Mass fraction] 99 % Jermain Sarabia MD Work Phone: [facility] 01-17-2024 11:10-0400 Systolic blood pressure 144 mm[Hg] Jermain Sarabia MD Work Phone: [facility] 01-10-2024 13:20-0400 Body mass index (BMI) [Ratio] 30.23 kg/m2 Vineet Gerson DO Work Phone: [facility] 01-10-2024 13:20-0400 Body weight 79.89 kg Vineet Gerson DO Work Phone: [facility] 01-10-2024 13:20-0400 Diastolic blood pressure 72 mm[Hg] Vineet Gerson DO Work Phone: [facility] 01-10-2024 13:20-0400 Systolic blood pressure 120 mm[Hg] Vineet Gerson DO Work Phone: [facility] Healthcare Encounters Encounter Date Encounter Type Care Provider Facility Start: 11-20-2024 End: 11-20-2024 Orders Only Jermain Sarabia MD Work Phone: [facility] Comment on above: Palpitation (Primary Dx) Start: 11-19-2024 End: 11-19-2024 Bamboo flowsheet Jermain Sarabia MD Work Phone: [facility] Start: 11-19-2024 End: 11-19-2024 Bamboo flowsheet Jermain Sarabia MD Work Phone: [facility] Start: 11-19-2024 End: 11-19-2024 Office outpatient visit 15 minutes Jermain Sarabia MD Work Phone: [facility] Comment on above: Benign essential hyp ertension (Primary Dx); Menorrhagia with regular cycle; Perimenopausal Start: 11-19-2024 End: 11-19-2024 ambulatory JERMAIN SARABIA Not Available Start: 10-29-2024 End: 10-29-2024 Bamboo flowsheet Vineet Gerson DO Work Phone: [facility] Start: 10-29-2024 End: 10-29-2024 Bamboo flowsheet Vineet Gerson DO Work Phone: [facility] Start: 10-29-2024 End: 10-29-2024 Office outpatient visit 15 minutes Vineet Gerson DO Work Phone: [facility] Comment on above: Pre-op examination; Dyspareunia in female; Menorrhagia with regular cycle; Pelvic pain; Dysmenorrhea Start: 10-29-2024 End: 10-29-2024 Preprocedural examination done Vineet Gerson DO Work Phone: [facility] Start: 10-29-2024 End: 10-29-2024 ambulatory VINEET GERSON Not Available Start: 09-09-2024 End: 09-09-2024 ambulatory VINEET GERSON Not Available Start: 09-09-2024 End: 09-09-2024 Office outpatient visit 15 minutes Vineet Gerson DO Work Phone: [facility] Comment on above: Menorrhagia with reg ular cycle; Abdominal cramping; Acute nonintractable headache, unspecified headache type; Low serum iron Start: 09-09-2024 End: 09-09-2024 Bamboo flowsheet Vineet Gerson DO Work Phone: [facility] Start: 09-09-2024 End: 09-09-2024 Bamboo flowsheet Vineet Nieto DO Work Phone: [facility] Start: 08-27-2024 End: 08-27-2024 ambulatory JERMAIN SARABIA Not Available Start: 08-23-2024 End: 08-23-2024 ambulatory JERMAIN SARABIA Not Available Start: 08-20-2024 End: 08-20-2024 Bamboo flowsheet Jermain Sarabia MD Work Phone: [facility] Start: 08-20-2024 End: 08-20-2024 Bamboo flowsheet Jermain Sarabia MD Work Phone: [facility] Start: 08-20-2024 End: 08-20-2024 Patient encounter procedure Jermain Sarabia MD Work Phone: [facility] Work Phone: Start: 08-20-2024 End: 08-20-2024 Periodic preventive med est patient 40-64yrs Jermain Sarabia MD Work Phone: [facility] Comment on above: Annual physical exam (Primary Dx); Benign essential hypertension (CMS/HCC); Breast cancer screening by mammogram; Menorrhagia with irregular cycle Start: 08-20-2024 End: 08-20-2024 ambulatory JERMAIN SARABIA Not Available Start: 02-26-2024 End: 02-26-2024 Bamboo flowsheet Cindy JACKSON Work Phone: [facility] Start: 02-26-2024 End: 02-26-2024 Bamboo flowsheet Cindy JACKSON Work Phone: [facility] Start: 02-26-2024 End: 02-26-2024 Postop follow up visit related to original px Cindy JACKSON Work Phone: [facility] Comment on above: Postop check Start: 02-26-2024 End: 02-26-2024 ambulatory CINDY FOX Not Available Start: 02-20-2024 End: 02-20-2024 Bamboo flowsheet Jermain Sarabia MD Work Phone: [facility] Start: 02-20-2024 End: 02-20-2024 Bamboo flowsheet Jermain Sarabia MD Work Phone: [facility] Start: 02-20-2024 End: 02-20-2024 Office outpatient visit 25 minutes Jermain Sarabia MD Work Phone: [facility] Comment on above: Benign essential hyp ertension (CMS/HCC) (Primary Dx); Palpitation; Iron deficiency anemia due to chronic blood loss Start: 02-20-2024 End: 02-20-2024 ambulatory JERMAIN SARABIA Not Available Start: 02-09-2024 End: 02-09-2024 Clinisync Result Encounter Vineet Gerson DO Work Phone: [facility] Unsolicited Start: 02-09-2024 End: 02-09-2024 Clinisync Result Encounter Vineet Gerson DO Work Phone: [facility] Unsolicited Start: 01-18-2024 End: 01-18-2024 ambulatory [facility] Start: 01-17-2024 End: 01-17-2024 ambulatory [facility] Start: 01-17-2024 End: 01-17-2024 Bamboo flowsheet Jermain Sarabia MD Work Phone: [facility] Start: 01-17-2024 End: 01-17-2024 Bamboo flowsheet Jermain Sarabia MD Work Phone: [facility] Start: 01-17-2024 End: 01-17-2024 Office outpatient visit 15 minutes Jermain Sarabia MD Work Phone: [facility] Comment on above: Benign essential hyp ertension (CMS/HCC) (Primary Dx); Palpitation Start: 01-17-2024 End: 01-17-2024 ambulatory JERMAIN SARABIA Not Available Start: 01-10-2024 End: 01-10-2024 Bamboo flowsheet Vineet Gerson DO Work Phone: [facility] Start: 01-10-2024 End: 01-10-2024 Bamboo flowsheet Vineet Gerson DO Work Phone: [facility] Start: 01-10-2024 End: 01-10-2024 Office outpatient visit 15 minutes Vineet Gerson DO Work Phone: [facility] Comment on above: Postop check; Pre-op examination; Menorrhagia with regular cycle; Abnormal uterine bleeding (AUB); Pelvic pain in female Start: 01-10-2024 End: 01-10-2024 Preprocedural examination done Vineet Gerson DO Work Phone: [facility] Start: 01-10-2024 End: 01-10-2024 ambulatory VINEET GERSON Not Available Start: 12-26-2023 End: 12-26-2023 ambulatory JERMAIN SANDERSR Not Available Start: 12-22-2023 End: 12-22-2023 ambulatory Vineet Gerson [facility] Work Phone: Start: 12-22-2023 End: 12-22-2023 Departed Referred DO Vineet Gerson Work Phone: [facility] Start: 08-18-2023 End: 08-18-2023 ambulatory JERMAIN BOBBYALICIAR [facility] Start: 07-07-2023 Chart abstracting Daniel sanchez PA Work Phone: [facility] Start: 06-22-2023 Bamboo flowsheet Jyotsna Wrig ht SERVICE CONSULTANT Work Phone: [facility] Start: 06-22-2023 Bamboo flowsheet Jyotsna Wrig ht SERVICE CONSULTANT Work Phone: [facility] Start: 06-22-2023 End: 06-22-2023 ambulatory Jyotsna Ward SERVICE CONSULTANT Work Phone: [facility] Comment on above: Left shoulder pain, unspecified chronicity (Primary Dx); Shoulder stiffness, left; Status post arthroscopy of left shoulder; Impingement of left shoulder Start: 06-15-2023 End: 06-15-2023 ambulatory Phani Gay PT Work Phone: [facility] Comment on above: Left shoulder pain, unspecified chronicity (Primary Dx); Shoulder stiffness, left; Status post arthroscopy of left shoulder Start: 08-09-2021 Encounter for genera l adult medical examination without abnormal findings DR JERMAIN SARABIA [facility] Start: 08-03-2021 End: 08-04-[address] JERMAIN SARABIA Facility:[facility] Start: 08-03-2021 End: 08-04-2021 Encounter for general adult medical examination without abnormal findings DR JERMAIN SARABIA Facility:[facility] Procedures Date Procedure Procedure Detail Performing Clinician Start: 08-23-2024 Mammography Vineet alcantara DO Work Phone: Start: 02-09-2024 ALL CBC WITH AUTO DIFF Generic External Data Provider Start: 09-20-2023 Microscopic observat ion [Identifier] in Cervix by Cyto stain Vineet Nieto DO Work Phone: Start: 04-14-2023 Mammography Phani franco PT Work Phone: Plan of Treatment Date Care Activity Detail Author Start: 09-19-2028 Screening for malign ant neoplasm of cervix [facility] Start: 08-23-2025 Screening for malign ant neoplasm of breast Mammogram [facility] Start: 02-21-2025 End: 02-21-2025 Patient encounter procedure 02/21/2025 9:00 AM EDT Office Visit [facility] [address] [place] [phone] Jermain Sarabia MD [address] [place] [phone] [facility] Start: 01-13-2025 Influenza vaccination [facility] Start: 01-08-2025 End: 01-08-2025 Patient encounter procedure 01/08/2025 8:30 AM EDT Office Visit [facility] [address] [place] [address] Cindy Fox PA [address] [place] [address] [facility] Start: 12-04-2024 End: 12-04-2024 Patient encounter procedure 12/04/2024 9:30 AM EDT Office Visit [facility] [address] [place] [address] Cindy Fox PA [address] [place] [address] [facility] Start: 11-19-2024 End: 11-19-2024 Patient encounter procedure [facility] Comment on above: Arrived Start: 10-29-2024 End: 10-29-2024 Patient encounter procedure [facility] Comment on above: Pre-op examination; Dyspareunia in female; Menorrhagia with regular cycle; Pelvic pain; Dysmenorrhea Start: 08-20-2024 End: 08-20-2025 Basic metabolic 1998 panel - Serum or Plasma Basic metabolic panel Lab Routine Annual physical exam Expected: 08/20/2024 (Approximate), Expires: 08/20/2025 [facility] Comment on above: Expected: 08/20/2024 (Approximate), Expires: 08/20/2025 Start: 08-20-2024 End: 08-20-2025 CBC W Auto Differential panel - Blood CBC and differential Lab Routine Annual physical exam Expected: 08/20/2024 (Approximate), Expires: 08/20/2025 [facility] Comment on above: Expected: 08/20/2024 (Approximate), Expires: 08/20/2025 Start: 08-20-2024 End: 08-20-2025 Hemoglobin A1c/Hemoglobin.total in Blood Hemoglobin A1c Lab Routine Annual physical exam Expected: 08/20/2024 (Approximate), Expires: 08/20/2025 [facility] Work Phone: Comment on above: Expected: 08/20/2024 (Approximate), Expires: 08/20/2025 Start: 08-20-2024 End: 08-20-2025 Hepatic function 2000 panel - Serum or Plasma Hepatic function panel Lab Routine Annual physical exam Expected: 08/20/2024 (Approximate), Expires: 08/20/2025 [facility] Comment on above: Expected: 08/20/2024 (Approximate), Expires: 08/20/2025 Start: 08-20-2024 End: 08-20-2025 Lipid 1996 panel - Serum or Plasma Lipid panel Lab Routine Annual physical exam Expected: 08/20/2024 (Approximate), Expires: 08/20/2025 [facility] Comment on above: Expected: 08/20/2024 (Approximate), Expires: 08/20/2025 Start: 08-20-2024 End: 10-20-2025 MG Breast - bilateral Screening Bilateral screening mammogram Imaging Routine Breast cancer screening by mammogram Expected: 08/20/2024, Expires: 10/20/2025 [facility] Comment on above: Expected: 08/20/2024 , Expires: 10/20/2025 Start: 08-20-2024 End: 08-20-2025 Thyrotropin [Units/volume] in Serum or Plasma TSH Lab Routine Annual physical exam Expected: 08/20/2024 (Approximate), Expires: 08/20/2025 [facility] Comment on above: Expected: 08/20/2024 (Approximate), Expires: 08/20/2025 Start: 08-20-2024 End: 08-20-2024 Patient encounter procedure [facility] Comment on above: Arrived Start: 04-14-2024 Screening for malign ant neoplasm of breast Mammogram [facility] Start: 02-26-2024 End: 02-26-2024 Patient encounter procedure 02/26/2024 8:40 AM EDT Office Visit [facility] [address] [place] [phone] Cindy Fox PA [address] [place], [place] [id number] Arrived [facility] Comment on above: Arrived Start: 02-20-2024 End: 02-20-2024 Patient encounter procedure [facility] Comment on above: Arrived Start: 02-09-2024 End: 02-09-2024 Patient encounter procedure 02/09/2024 8:00 AM EDT Procedure Visit [facility] Vineet Nieto, [address] [place] [address] [facility] Start: 01-26-2024 End: 01-26-2024 Patient encounter procedure 01/26/2024 9:15 AM EDT Office Visit [facility] [address] [place] [phone] Jermain Sarabia MD [address] [place] [id number] [facility] Start: 01-17-2024 End: 01-16-2025 Basic metabolic 1998 panel - Serum or Plasma Basic metabolic panel Lab Routine Palpitation Expected: 01/17/2024 (Approximate), Expires: 01/16/2025 [facility] Comment on above: Expected: 01/17/2024 (Approximate), Expires: 01/16/2025 Start: 01-17-2024 End: 01-16-2025 CBC W Auto Differential panel - Blood CBC and differential Lab Routine Palpitation Expected: 01/17/2024 (Approximate), Expires: 01/16/2025 [facility] Comment on above: Expected: 01/17/2024 (Approximate), Expires: 01/16/2025 Start: 01-17-2024 End: 01-16-2025 Holter monitor study Holter monitor Imaging Routine Palpitation Expected: 01/17/2024 (Approximate), Expires: 01/16/2025 [facility] Work Phone: Comment on above: Expected: 01/17/2024 (Approximate), Expires: 01/16/2025 Start: 01-17-2024 End: 01-16-2025 Thyrotropin [Units/volume] in Serum or Plasma TSH Lab Routine Palpitation Expected: 01/17/2024 (Approximate), Expires: 01/16/2025 [facility] Comment on above: Expected: 01/17/2024 (Approximate), Expires: 01/16/2025 Start: 01-17-2024 End: 01-16-2025 Thyroxine (T4) free [Mass/volume] in Serum or Plasma T4, free Lab Routine Palpitation Expected: 01/17/2024 (Approximate), Expires: 01/16/2025 [facility] Comment on above: Expected: 01/17/2024 (Approximate), Expires: 01/16/2025 Start: 01-17-2024 End: 01-17-2024 Patient encounter procedure 01/17/2024 11:15 AM EDT Office Visit [facility] [address] [place] [address] Jermain Sarabia MD [address] [place] [address] Arrived [facility] Comment on above: Arrived Start: 01-14-2024 Influenza vaccination Influenza Vacc ine (#1) [facility] Start: 01-10-2024 End: 01-10-2024 Patient encounter procedure 01/10/2024 1:20 PM EDT Consult [facility] [address] [place] [phone] Vineet Nieto DO [address] [place], [place] [phone] Arrived [facility] Comment on above: Arrived Start: 12-22-2023 [facility] Start: 07-07-2023 End: 07-07-2023 Patient encounter procedure 07/07/2023 10:15 AM EST Office Visit [facility] [address] [facility] [address] [place] [address] Daniel Gould PA [address] [facility] [address] [place] [address] [facility] Start: 07-06-2023 End: 07-06-2023 ambulatory 07/06/2023 12:00 PM EST Treatment [facility] [address] [place] [phone] Phani Gay, PT [address] [place], [place] [phone] [facility] Start: 06-29-2023 End: 06-29-2023 ambulatory 06/29/2023 1:00 PM EST Treatment [facility] [address] [place] [address] Jyotsna Ward, SERVICE CONSULTANT [address] [place], [place] [phone] [facility] Start: 06-22-2023 End: 06-22-2023 ambulatory [facility] Comment on above: Arrived Start: 01-13-2023 Influenza vaccination Influenza Vacc ine (#1) [facility] Start: 01-31-2010 Screening for malign ant neoplasm of cervix [facility] Start: 01-31-2001 Screening for malign ant neoplasm of cervix Pap Smear [facility] Immunizations Immunization Date Immunization Notes Care Provider Areli agudelo 02-06-2018 influenza virus vacc ine, unspecified formulation Phani Gay PT Work Phone: [facility] Payers Date Payer Category Payer Private Health Insurance [employer] [id number] 2024 Unknown [id number] 2023 Self-pay [id number] 2015 Managed Care HMO (unspecified) [id number] 1980 Unknown [id number] [id number]. 593 1980 Unknown [id number] 2.16.840.1.252989.3.579.2. 128 1980 Unknown [id number] 2.16.840.1.051310.3.579.2. 1285 1980 Unknown [id number] 2.16.840.1.787190.3.579.2. 1285 1980 Unknown [id number] 2.16.840.1.177835.3.579.2. 1258 1980 Unknown [id number] 2.16.840.1.043002.3.579.2. 1258 1980 Unknown [id number] 2.16.840.1.560988.3.579.2. 1258 1980 Unknown [id number] 2.16.840.1.852145.3.579.2. 1258 1980 Unknown [id number] 2.16.840.1.190255.3.579.2. 1258 1980 Unknown [id number] 2.16.840.1.137721.3.579.2. 1258 1980 Unknown [id number] 2.16.840.1.706294.3.579.2. 1258 1980 Unknown [id number] 2.16.840.1.992898.3.579.2. 1258 1980 Unknown [id number] 2.16.840.1.295381.3.579.2. 1258 1980 Unknown [id number] 2.16.840.1.095734.3.579.2. 1259 1980 Unknown [id number] 2.16.840.1.424927.3.579.2. 1259 1959 Private Health Insurance [id number] Private Health Insurance [employer] [id number] Unknown [id number] [id number]. 531 Social History Date Type Detail Facility Start: 05-26-2023 Tobacco smoking status MAIS Ex-smoker [facility] History of tobacco use Current smoker [facility] History of tobacco use Cigarette Smoker [facility] Start: 05-26-2023 End: 08-17-2023 Tobacco use and exposure Smokeless tobacco non-user [facility] Start: 06-09-2023 End: 06-25-2023 Alcohol intake Current drinker of alcohol (finding) [facility] Start: 05-26-2023 End: 08-17-2023 History of Social function [facility] Start: 05-26-2023 End: 08-17-2023 Tobacco use panel [facility] Start: 03-03-2023 Alcohol Comment drinks alcohol 2-4 times a month [facility] Start: 1980 Sex Assigned At Not on file [facility] Start: 07-27-2022 Gender identity Identifies as female gender (finding) [facility] Start: 1980 Sex Assigned At Female [facility] Start: 08-17-2023 Tobacco smoking status [facility] Never smoked tobacco [facility] Start: 02-20-2024 End: 11-19-2024 Alcoholic beverage intake Ex-drinker (finding) [facility] How often do you get together with friends or relatives? Patient declined [facility] Do you belong to any clubs or organizations such as sikhism groups, unions, fraternal or athletic groups, or school groups? No [facility] Are you now , , , , never or living with a partner? [facility] How often to you hav e a drink containing alcohol? Monthly or less [facility] How many standard dr inks containing alcohol do you have on a typical day? 1 or 2 [facility] How often do you hav e 6 or more drinks on 1 occasion? Never [facility] Do you feel stress - tense, restless, nervous, or anxious, or unable to sleep at night because your mind is troubled all the time - these days [OSQ] Only a little [facility] (I/We) worried wheth er (my/our) food would run out before (I/we) got money to buy more. Never true [facility] Clinical Notes 01-10-2024 to 11-19-2024 Jermain Sarabia MD - 11/19/2024 10:29 AM rAgenis Sarabia MD - 11/19/2024 10:29 AM Argenis Sarabia MD - 11/19/2024 10:28 AM Argenis Sarabia MD - 11/19/2024 9:30 AM EDT Note Date & Type Note Facility 11-19-2024 History of Presen t illness Narrative Associated Problem(s): Perimenopausal Developed symptoms and monitor after surgery. May need hormone replacement. Associated Problem(s): Menorrhagia Able to proceed with upcoming surgery at low risk for complications. Recommend routine PAT. Associated Problem(s): Benign essential hypertension BP controlled and monitor PRN. Images from the original note were not included. Subjective Patient ID: Corrina Durand is a 44 y.o. female who presents for Follow-up (3m). Follow up HTN and anemia. Checking BP PRN and typically controlled. BP normal today. Taking medication daily and tolerating without side effects. Continues to have fatigue. Seen by calender let off operator for menorrhagia and will have robotic BEN [...] need hormone replacement. documented in this encounter [facility] 10-29-2024 History of Presen t illness Narrative Reason for Appointment: Patient ID: Corrina Durand is a 44 y.o. female who presents for No chief complaint on file. Patient presents today for Pre Op appointment. Patient is scheduled to undergo Da Wendy assisted Laparoscopic Hysterectomy, possible exploratory laparotomy, possible BSO, possible cystoscopy on 11-27-[address] Nieto at [facility]. MEDICATIONS Current Outpatient Medications Medication Instructions losartan (COZAAR) 25 mg, Oral, Daily ProFe 391.3 mg, Oral, Daily ALLERGIES Allergies Allergen Reactions Cefaclor Rash and Unknown PROBLEMS Active Ambulatory Problems Diagnosis Date Noted Status post arthroscopy of left shoulder 06/15/2023 Restless leg syndrome 08/17/2023 Stress reaction 08/17/2023 Iron deficiency anemia due to chronic blood loss 08/17/2023 Coccydynia 08/17/2023 Menorrhagia 08/17/2023 Benign essential hypertension 12/26/2023 Palpitation 01/17/2024 Annual physical exam 08/20/2024 Encounter for long-term (current) use of medications 09/05/2024 Resolved Ambulatory Problems Diagnosis Date Noted Left shoulder pain 03/01/2023 Impingement of left shoulder 03/01/2023 Shoulder stiffness, left 06/15/2023 Memory loss 08/17/2023 Past Medical History: Diagnosis Date At low risk for fall Atypical mole Insomnia Overweight (BMI 25.0-29.9) RLS (restless legs syndrome) Shoulder pain HISTORY PAST MEDICAL HISTORY SOCIAL HISTORY Past Medical History: Diagnosis Date At low risk for fall Atypical mole Insomnia Menorrhagia Overweight (BMI 25.0-29.9) RLS (restless legs syndrome) Shoulder pain Stress reaction Social History Tobacco Use Smoking status: Never Smokeless tobacco: Never Vaping Use Vaping status: Unknown Substance Use Topics Alcohol use: Not Currently Comment: drinks alcohol 2-4 times a month Drug use: Never FAMILY HISTORY Family History Problem Relation Name Age of Onset Hypertension Mother Hypertension Father Alzheimer's disease Father Diabetes Paternal Grandmother Cancer Other maternal aunt Diabetes Other maternal aunt SURGICAL HISTORY Past Surgical History: Procedure Laterality Date ADENOIDECTOMY ENDOMETRIAL ABLATION KNEE SURGERY Right Arthroscopic debridement of joint, Dr Fenton LASER LAPAROSCOPY 1998 SHOULDER ARTHROSCOPY W/ ROTATOR CUFF REPAIR Left 05/26/2023 W/ SAD ; DR FENTON SHOULDER SURGERY Right 09/13/2016 Scope, Dr Fenton TONSILLECTOMY adenoidectomy TUBAL LIGATION 02/2014 REVIEW OF SYSTEMS Review of Systems: Review of Systems Constitutional: Negative. HENT: Negative. Eyes: Negative. Respiratory: Negative. Cardiovascular: Negative. Gastrointestinal: Negative. Genitourinary: Positive for dyspareunia, menstrual problem and pelvic pain. Musculoskeletal: Negative. Skin: Negative. Neurological: Negative. All other systems reviewed and are negative. Hematological: Negative. Endocrine: Negative. Allergic/Immunologic: Negative. OBJECTIVE Objective: Physical Exam Constitutional: Appearance: Normal appearance. She is well-developed. Cardiovascular: Rate and Rhythm: Normal rate and regular rhythm. Pulmonary: Effort: Pulmonary effort is normal. Breath sounds: Normal breath sounds. Abdominal: General: Bowel sounds are normal. There is no distension. Palpations: Abdomen is soft. Tenderness: There is no abdominal tenderness. There is no guarding or rebound. Musculoskeletal: General: No swelling. Normal range of motion. Right lower leg: No edema. Left lower leg: No edema. Neurological: Mental Status: She is alert and oriented to person, place, and time. Skin: General: Skin is warm and dry. Psychiatric: Mood and Affect: Mood normal. Behavior: Behavior normal. Vitals and nursing note reviewed. Exam conducted with a handkerchief folder present. Vitals: Estimated body mass index is 29.83 kg/m as calculated from the following: Height as of 08/20/24: 5' 4 . Weight as of 09/09/24: 173 lb 12.8 oz. BP: No LMP recorded. ASSESSMENT & PLAN ICD-10-CM 1. Pre-op examination Z01.818 2. Dyspareunia in female N94.10 3. Menorrhagia with regular cycle N92.0 4. Pelvic pain R10.2 5. Dysmenorrhea N94.6 Pre Op: Patient is doing well but has complaints of dyspareunia, menorrhagia after ablation, pelvic pain, and dysmenorrhea. I have discussed conservative management vs. surgical management with the patient in detail and patient desires surgical management at this time. Patient will undergo Da Wendy assisted Laparoscopic Hysterectomy, possible exploratory laparotomy, possible BSO, possible cystoscopy on 11/27/24. Surgical consents were signed, mmc was reviewed, and patient is to proceed to [facility] OR. Follow Up: Patient is to follow up at 1 & 6 weeks post operative to assess proper healing and recovery from procedure. Documented by Yolanda García LPN on behalf of: Vineet Nieto DO documented in this encounter [facility] 09-09-2024 History of Presen t illness Narrative Reason for Appointment: Patient ID: Corrina Durand is a 44 y.o. female who presents for Menorrhagia, Abdominal Cramping, Headache, and low iron Patient presents today for Consult appointment. MEDICATIONS Current Outpatient Medications Medication Instructions losartan (COZAAR) 25 mg, Oral, Daily ProFe 391.3 mg, Oral, Daily ALLERGIES Allergies Allergen Reactions Cefaclor Rash and Unknown PROBLEMS Active Ambulatory Problems Diagnosis Date Noted Status post arthroscopy of left shoulder 06/15/2023 Restless leg syndrome 08/17/2023 Stress reaction 08/17/2023 Iron deficiency anemia due to chronic blood loss 08/17/2023 Coccydynia 08/17/2023 Menorrhagia 08/17/2023 Benign essential hypertension (CMS/HCC) 12/26/2023 Palpitation 01/17/2024 Annual physical exam 08/20/2024 Encounter for long-term (current) use of medications 09/05/2024 Resolved Ambulatory Problems Diagnosis Date Noted Left shoulder pain 03/01/2023 Impingement of left shoulder 03/01/2023 Shoulder stiffness, left 06/15/2023 Memory loss 08/17/2023 Past Medical History: Diagnosis Date At low risk for fall Atypical mole Insomnia Overweight (BMI 25.0-29.9) RLS (restless legs syndrome) Shoulder pain HISTORY PAST MEDICAL HISTORY SOCIAL HISTORY Past Medical History: Diagnosis Date At low risk for fall Atypical mole Insomnia Menorrhagia Overweight (BMI 25.0-29.9) RLS (restless legs syndrome) Shoulder pain Stress reaction Social History Tobacco Use Smoking status: Never Smokeless tobacco: Never Vaping Use Vaping status: Unknown Substance Use Topics Alcohol use: Not Currently Comment: drinks alcohol 2-4 times a month Drug use: Never FAMILY HISTORY Family History Problem Relation Name Age of Onset Hypertension Mother Hypertension Father Alzheimer's disease Father Diabetes Paternal Grandmother Cancer Other maternal aunt Diabetes Other maternal aunt SURGICAL HISTORY Past Surgical History: Procedure Laterality Date ADENOIDECTOMY ENDOMETRIAL ABLATION KNEE SURGERY Right Arthroscopic debridement of joint, Dr Fenton LASER LAPAROSCOPY 1998 SHOULDER ARTHROSCOPY W/ ROTATOR CUFF REPAIR Left 05/26/2023 W/ SAD ; DR FENTON SHOULDER SURGERY Right 09/13/2016 Scope, Dr Fenton TONSILLECTOMY adenoidectomy TUBAL LIGATION 02/2014 REVIEW OF SYSTEMS Review of Systems: Review of Systems Genitourinary: Positive for menstrual problem and pelvic pain. OBJECTIVE Objective: Physical Exam Constitutional: Appearance: Normal appearance. She is well-developed. Cardiovascular: Rate and Rhythm: Normal rate and regular rhythm. Pulmonary: Effort: Pulmonary effort is normal. Breath sounds: Normal breath sounds. Abdominal: General: Bowel sounds are normal. There is no distension. Palpations: Abdomen is soft. Tenderness: There is no abdominal tenderness. There is no guarding or rebound. Musculoskeletal: General: No swelling. Normal range of motion. Right lower leg: No edema. Left lower leg: No edema. Neurological: Mental Status: She is alert and oriented to person, place, and time. Skin: General: Skin is warm and dry. Psychiatric: Mood and Affect: Mood normal. Behavior: Behavior normal. Vitals and nursing note reviewed. Exam conducted with a handkerchief folder present. Vitals: Estimated body mass index is 29.83 kg/m as calculated from the following: Height as of 08/20/24: 5' 4 . Weight as of this encounter: 173 lb 12.8 oz. BP: 112/68 No LMP recorded. ASSESSMENT & PLAN ICD-10-CM 1. Menorrhagia with regular cycle N92.0 2. Abdominal cramping R10.9 3. Acute nonintractable headache, unspecified headache type R51.9 4. Low serum iron E61.1 Patient presents post ablation 01/2024 and symptoms have not improved. Patient would like to proceed to OR at [facility] for partial Hysterectomy. Patient to talk with Rn Orthopaedic prior to leaving office and will setup Pre-Op appointment. Documented by Jessica Harris LPN on behalf of: Vineet Nieto DO documented in this encounter [facility] 08-20-2024 History of Presen t illness Narrative Associated Problem(s): Menorrhagia Continues to have heavy bleeding after ablation and resume iron supplement. Follow with calender let off operator. Associated Problem(s): Benign essential hypertension (CMS/HCC) BP elevated and resume losartan. Discussed DASH diet. Associated Problem(s): Annual physical exam Due for labs. Discussed proper diet and regular aerobic exercise. Need aerobic exercise 5-6 days a week for 30 minutes at a time. Smaller portions and limit total calories. Colonoscopy after age 45. Tetanus every 10 years. Advised not to smoke. Images from the original note were not included. Subjective Patient ID: Corrina Durand is a 44 y.o. female who presents for Follow-up (6m f/u). Presents for annual PE. Feels well today. Tries to stay active and exercise several days a week. Tries to watch diet and eat healthy. Increased fruits and vegetables. Smaller portions and limits snacking. Tries to limit total daily calories. Due for labs. Stopped losartan and not checking BP. BP very elevated today. Continues to have menorrhagia and heavy bleeding. Notice palpitations and heart racing with exertion. Not on iron supplement. Need to reschedule with calender let off operator. Review of Systems Respiratory: Negative for cough, [...] There is no guarding or rebound. Musculoskeletal: General: No swelling or tenderness. Cervical back: Neck supple. Right lower leg: No edema. Left lower leg: No edema. Skin: Findings: No erythema or rash. Neurological: General: No focal deficit present. Mental Status: She is alert and oriented to person, place, and time. Cranial Nerves: No cranial nerve deficit. Motor: No weakness. Gait: Gait normal. Assessment/Plan Problem List Items Addressed This Visit Menorrhagia Continues to have heavy bleeding after ablation and resume iron supplement. Follow with calender let off operator. Relevant Medications iron polysaccharides (ProFe) 391.3 (180 Fe) MG capsule Benign essential hypertension (CMS/HCC) BP elevated and resume losartan. Discussed DASH diet. Relevant Medications losartan (Cozaar) 25 MG tablet Annual physical exam - Primary Due for labs. Discussed proper diet and regular aerobic exercise. Need aerobic exercise 5-6 days a week for 30 minutes at a time. Smaller portions and limit total calories. Colonoscopy after age 45. Tetanus every 10 years. Advised not to smoke. Relevant Orders Hemoglobin A1c Basic metabolic panel CBC and differential Hepatic function panel Lipid panel TSH Other Visit Diagnoses Breast cancer screening by mammogram Relevant Orders Bilateral screening mammogram documented in this encounter [facility] 02-26-2024 History of Presen t illness Narrative Reason for Appointment: Patient ID: Corrina Durand is a 44 y.o. female who presents for Post-op Visit Patient presents today for 1 Week Post Op Follow Up appointment. MEDICATIONS Current Outpatient Medications Medication Instructions iron polysaccharides (PROFE) 391.3 mg, Oral, Daily losartan (COZAAR) 25 mg, Oral, Daily ALLERGIES Allergies Allergen Reactions Cefaclor Rash and Unknown PROBLEMS Active Ambulatory Problems Diagnosis Date Noted Status post arthroscopy of left shoulder 06/15/2023 Restless leg syndrome 08/17/2023 Stress reaction 08/17/2023 Iron deficiency anemia due to chronic blood loss 08/17/2023 Coccydynia 08/17/2023 Menorrhagia 08/17/2023 Benign essential hypertension (CMS/HCC) 12/26/2023 Palpitation 01/17/2024 Resolved Ambulatory Problems Diagnosis Date Noted Left shoulder pain 03/01/2023 Impingement of left shoulder 03/01/2023 Shoulder stiffness, left 06/15/2023 Memory loss 08/17/2023 Past Medical History: Diagnosis Date At low risk for fall Atypical mole Insomnia Overweight (BMI 25.0-29.9) RLS (restless legs syndrome) Shoulder pain HISTORY PAST MEDICAL HISTORY SOCIAL HISTORY Past Medical History: Diagnosis Date At low risk for fall Atypical mole Insomnia Menorrhagia Overweight (BMI 25.0-29.9) RLS (restless legs syndrome) Shoulder pain Stress reaction Social History Tobacco Use Smoking status: Never Smokeless tobacco: Never Vaping Use Vaping status: Unknown Substance Use Topics Alcohol use: Not Currently Comment: drinks alcohol 2-4 times a month Drug use: Never FAMILY HISTORY Family History Problem Relation Name Age of Onset Hypertension Mother Hypertension Father Alzheimer's disease Father Diabetes Paternal Grandmother Cancer Other maternal aunt Diabetes Other maternal aunt SURGICAL HISTORY Past Surgical History: Procedure Laterality Date ADENOIDECTOMY KNEE SURGERY Right Arthroscopic debridement of joint, Dr Fenton LASER LAPAROSCOPY 1998 SHOULDER ARTHROSCOPY W/ ROTATOR CUFF REPAIR Left 05/26/2023 W/ SAD ; DR FENTON SHOULDER SURGERY Right 09/13/2016 Scope, Dr Fenton TONSILLECTOMY adenoidectomy TUBAL LIGATION 02/2014 REVIEW OF SYSTEMS Review of Systems: Review of Systems Constitutional: Negative. HENT: Negative. Eyes: Negative. Respiratory: Negative. Cardiovascular: Negative. Gastrointestinal: Negative. Genitourinary: Negative. Musculoskeletal: Negative. Skin: Negative. Neurological: Negative. All other systems reviewed and are negative. Hematological: Negative. Endocrine: Negative. Allergic/Immunologic: Negative. OBJECTIVE Objective: Physical Exam Constitutional: Appearance: Normal appearance. She is normal weight. HENT: Head: Normocephalic. Cardiovascular: Rate and Rhythm: Normal rate. Pulses: Normal pulses. Pulmonary: Effort: Pulmonary effort is normal. Breath sounds: Normal breath sounds. Abdominal: Palpations: Abdomen is soft. Musculoskeletal: General: Normal range of motion. Neurological: General: No focal deficit present. Mental Status: She is alert and oriented to person, place, and time. Psychiatric: Mood and Affect: Mood normal. Behavior: Behavior normal. Thought Content: Thought content normal. Judgment: Judgment normal. Vitals and nursing note reviewed. Vitals: Estimated body mass index is 31.03 kg/m as calculated from the following: Height as of 02/20/24: 5' 4 . Weight as of this encounter: 180 lb 12.8 oz. BP: 122/80 No LMP recorded. ASSESSMENT & PLAN ICD-10-CM 1. Postop check Z09 Post Op Follow Up: Patient presents today for a postop follow up after having a ablation performed at [facility] with Dr. Nieto. Patient doing well, with minimal cramps and discharge. Restrictions lifted Follow Up: Patient is to return to the office for annual exam unless needed otherwise. Documented by MANUEL Land on behalf of: MANUEL Land documented in this encounter [facility] 02-20-2024 History of Presen t illness Narrative Associated Problem(s): Palpitation Holter without abnormal rhythm and symptoms likely related to anemia. Monitor. If persists could try metoprolol. Associated Problem(s): Iron deficiency anemia due to chronic blood loss Hgb improved with iron supplement and continue. Follow with calender let off operator. Associated Problem(s): Benign essential hypertension (CMS/HCC) BP controlled and monitor PRN. Images from the original note were not included. Subjective Patient ID: Corrina Durand is a 44 y.o. female who presents for Follow-up (1 M). Follow up HTN and palpitations. Patient improved today. Checking BP PRN and at times elevated but typically controlled. BP normal today. Taking medication daily and tolerating without side effects. Palpitations unchanged. Still occasional heart racing but not often. Not lightheaded or dizzy. Not limiting activity. Holter showed occasional PVC and sinus tach. Patient had D&C with calender let off operator for menorrhagia. Hgb down to 10.9 from 12 few weeks prior when on menses. On iron supplement. Review of Systems Respiratory: Negative for cough, [...] Assessment/Plan Problem List Items Addressed This Visit Iron deficiency anemia due to chronic blood loss Hgb improved with iron supplement and continue. Follow with calender let off operator. Benign essential hypertension (CMS/HCC) - Primary BP controlled and monitor PRN. Palpitation Holter without abnormal rhythm and symptoms likely related to anemia. Monitor. If persists could try metoprolol. documented in this encounter [facility] 01-17-2024 History of Presen t illness Narrative Associated Problem(s): Palpitation Frequent symptoms and unclear etiology. Check labs and Holter. Associated Problem(s): Benign essential hypertension (CMS/HCC) BP improved and continue losartan. Continue to monitor PRN. Images from the original note were not included. Subjective Patient ID: Corrina Durand is a 43 y.o. female who presents for Palpitations and Hypertension (First noticed running high at beginning of December). Follow up HTN. Started cozaar last visit and tolerating well. Checking BP PRN and much improved. Frequently BP normal and occasionally in 140s. BP 144/80 today. Seen by calender let off operator last week and BP normal in office. C/o palpitations. Symptoms for weeks but getting worse. Notice heart racing and beating fast. Monitoring BP with cuff and often reports irregular pulse. Symptoms last for several seconds to minutes. Symptoms daily and several times a day. Occasionally associated with SOB and feels like can't catch breath. Not notice triggers and can occur at rest or with exertion. Review of Systems Respiratory: Negative for cough, [...] Assessment/Plan Problem List Items Addressed This Visit Benign essential hypertension (CMS/HCC) - Primary BP improved and continue losartan. Continue to monitor PRN. Palpitation Frequent symptoms and unclear etiology. Check labs and Holter. Relevant Orders Holter monitor CBC and differential Basic metabolic panel TSH T4, free documented in this encounter [facility] 01-10-2024 History of Presen t illness Narrative Reason for Appointment: Patient ID: Corrina Durand is a 43 y.o. female who presents for Post-op Visit Patient presents today for Post Op/Pre Op appointment. Patient is scheduled to undergo Endometrial Ablation with Christelle on 02/09/[address] Nieto at [facility]. MEDICATIONS Current Outpatient Medications Medication Instructions ferrous sulfate (FE TABS) 325 mg, Oral, 2 times daily (12/24), Do not crush, chew, or split. losartan (COZAAR) 25 mg, Oral, Daily ALLERGIES Allergies Allergen Reactions Cefaclor Rash and Unknown PROBLEMS Active Ambulatory Problems Diagnosis Date Noted Status post arthroscopy of left shoulder 06/15/2023 Restless leg syndrome 08/17/2023 Stress reaction 08/17/2023 Iron deficiency anemia due to chronic blood loss 08/17/2023 Coccydynia 08/17/2023 Memory loss 08/17/2023 Menorrhagia 08/17/2023 Benign essential hypertension (CMS/HCC) 12/26/2023 Resolved Ambulatory Problems Diagnosis Date Noted Left shoulder pain 03/01/2023 Impingement of left shoulder 03/01/2023 Shoulder stiffness, left 06/15/2023 Past Medical History: Diagnosis Date At low risk for fall Atypical mole Insomnia Overweight (BMI 25.0-29.9) RLS (restless legs syndrome) Shoulder pain HISTORY PAST MEDICAL HISTORY SOCIAL HISTORY Past Medical History: Diagnosis Date At low risk for fall Atypical mole Insomnia Menorrhagia Overweight (BMI 25.0-29.9) RLS (restless legs syndrome) Shoulder pain Stress reaction Social History Tobacco Use Smoking status: Never Smokeless tobacco: Never Vaping Use Vaping status: Unknown Substance Use Topics Alcohol use: Not Currently Comment: drinks alcohol 2-4 times a month Drug use: Never FAMILY HISTORY Family History Problem Relation Name Age of Onset Hypertension Mother Hypertension Father Alzheimer's disease Father Diabetes Paternal Grandmother Cancer Other maternal aunt Diabetes Other maternal aunt SURGICAL HISTORY Past Surgical History: Procedure Laterality Date ADENOIDECTOMY KNEE SURGERY Right Arthroscopic debridement of joint, Dr Fenton LASER LAPAROSCOPY 1998 SHOULDER ARTHROSCOPY W/ ROTATOR CUFF REPAIR Left 05/26/2023 W/ SAD ; DR FENTON SHOULDER SURGERY Right 09/13/2016 Scope, Dr Fenton TONSILLECTOMY adenoidectomy TUBAL LIGATION 02/2014 REVIEW OF SYSTEMS Review of Systems: Review of Systems Constitutional: Negative. HENT: Negative. Eyes: Negative. Respiratory: Negative. Cardiovascular: Negative. Gastrointestinal: Negative. Genitourinary: Positive for menstrual problem. Musculoskeletal: Negative. Skin: Negative. Neurological: Negative. All other systems reviewed and are negative. Hematological: Negative. Endocrine: Negative. Allergic/Immunologic: Negative. OBJECTIVE Objective: Physical Exam Constitutional: Appearance: Normal appearance. She is well-developed. Cardiovascular: Rate and Rhythm: Normal rate and regular rhythm. Pulmonary: Effort: Pulmonary effort is normal. Breath sounds: Normal breath sounds. Abdominal: General: Bowel sounds are normal. There is no distension. Palpations: Abdomen is soft. Tenderness: There is no abdominal tenderness. There is no guarding or rebound. Musculoskeletal: General: No swelling. Normal range of motion. Right lower leg: No edema. Left lower leg: No edema. Neurological: Mental Status: She is alert and oriented to person, place, and time. Skin: General: Skin is warm and dry. Psychiatric: Mood and Affect: Mood normal. Behavior: Behavior normal. Vitals and nursing note reviewed. Exam conducted with a handkerchief folder present. Vitals: Estimated body mass index is 30.23 kg/m as calculated from the following: Height as of 12/26/23: 5' 4 . Weight as of this encounter: 176 lb 1.9 oz. BP: 120/72 No LMP recorded. ASSESSMENT & PLAN ICD-10-CM 1. Postop check Z09 2. Pre-op examination Z01.818 3. Menorrhagia with regular cycle N92.0 4. Abnormal uterine bleeding (AUB) N93.9 5. Pelvic pain in female R10.2 Post Op Follow Up: Patient presents today for a postop follow up after having a D&C Hysteroscopy performed at [facility] with Dr. Nieto. Pathology results was reviewed with the patient in great detail and all restrictions have been lifted. Pre Op: Patient is doing well but has complaints of heavy periods, AUB, pelvic pain. I have discussed conservative management vs. surgical management with the patient in detail and patient desires surgical management at this time. Patient will undergo Endometrial Ablation with Christelle on 02/09/24. Surgical consents were signed, mmc was reviewed, and patient is to proceed to [facility] OR. Follow Up: Patient is to follow up between 1-2 weeks post operative to assess proper healing and recovery from procedure. Documented by Yolanda García LPN on behalf of: Vineet Nieto DO documented in this encounter [facility] Evaluation note Diagnosis Left shoulder pain, unspecified chronicity- Primary Shoulder stiffness, left Status post arthroscopy of left shoulder documented in this encounter [facility] note* Diagnosis Left shoulder pain, unspecified chronicity- Primary Shoulder stiffness, left Status post arthroscopy of left shoulder Impingement of left shoulder documented in this encounter [facility] HealthcareEvaluation noteNo assessment information availableUniversity [facility] Work Phone: Evaluation note* Diagnosis Benign essential hypertension (CMS/HCC)- Primary Essential hypertension, benign Palpitation Palpitations Iron deficiency anemia due to chronic blood loss Iron deficiency anemia secondary to blood loss (chronic) documented in this encounter [facility]* Diagnosis Coccydynia- Primary Other disorder of coccyx Stress reaction Unspecified acute reaction to stress Iron deficiency anemia due to chronic blood loss Iron deficiency anemia secondary to blood loss (chronic) Memory loss Menorrhagia with irregular cycle Benign essential hypertension (CMS/HCC)- Primary Essential hypertension, benign Benign essential hypertension (CMS/HCC)- Primary Essential hypertension, benign Palpitation Palpitations Benign essential hypertension (CMS/HCC)- Primary Essential hypertension, benign Palpitation Palpitations Iron deficiency anemia due to chronic blood loss Iron deficiency anemia secondary to blood loss (chronic) Postop check Follow-up examination, following unspecified surgery documented in this encounter [facility]* Diagnosis Postop check Follow-up examination, following unspecified surgery Pre-op examination Menorrhagia with regular cycle Abnormal uterine bleeding (AUB) Pelvic pain in female Unspecified symptom associated with female genital organs documented in this encounter [facility]* Diagnosis Benign essential hypertension (CMS/HCC)- Primary Essential hypertension, benign Palpitation Palpitations documented in this encounter [facility]* Diagnosis Coccydynia- Primary Other disorder of coccyx Stress reaction Unspecified acute reaction to stress Iron deficiency anemia due to chronic blood loss Iron deficiency anemia secondary to blood loss (chronic) Memory loss Menorrhagia with irregular cycle Benign essential hypertension (CMS/HCC)- Primary Essential hypertension, benign Benign essential hypertension (CMS/HCC)- Primary Essential hypertension, benign Palpitation Palpitations Benign essential hypertension (CMS/HCC)- Primary Essential hypertension, benign Palpitation Palpitations Iron deficiency anemia due to chronic blood loss Iron deficiency anemia secondary to blood loss (chronic) Annual physical exam- Primary Routine general medical examination at a health care facility Benign essential hypertension (CMS/HCC) Essential hypertension, benign Breast cancer screening by mammogram Menorrhagia with irregular cycle documented in this encounter [facility]* Diagnosis Coccydynia- Primary Other disorder of coccyx Stress reaction Unspecified acute reaction to stress Iron deficiency anemia due to chronic blood loss Iron deficiency anemia secondary to blood loss (chronic) Memory loss Menorrhagia with irregular cycle Benign essential hypertension (CMS/HCC)- Primary Essential hypertension, benign Benign essential hypertension (CMS/HCC)- Primary Essential hypertension, benign Palpitation Palpitations Benign essential hypertension (CMS/HCC)- Primary Essential hypertension, benign Palpitation Palpitations Iron deficiency anemia due to chronic blood loss Iron deficiency anemia secondary to blood loss (chronic) Annual physical exam- Primary Routine general medical examination at a health care facility Benign essential hypertension (CMS/HCC) Essential hypertension, benign Breast cancer screening by mammogram Menorrhagia with irregular cycle Menorrhagia with regular cycle Abdominal cramping Abdominal pain, unspecified site Acute nonintractable headache, unspecified headache type Low serum iron documented in this encounter [facility]* Diagnosis Coccydynia- Primary Other disorder of coccyx Stress reaction Unspecified acute reaction to stress Iron deficiency anemia due to chronic blood loss Iron deficiency anemia secondary to blood loss (chronic) Memory loss Menorrhagia with irregular cycle Benign essential hypertension- Primary Essential hypertension, benign Benign essential hypertension- Primary Essential hypertension, benign Palpitation Palpitations Benign essential hypertension- Primary Essential hypertension, benign Palpitation Palpitations Iron deficiency anemia due to chronic blood loss Iron deficiency anemia secondary to blood loss (chronic) Annual physical exam- Primary Routine general medical examination at a health care facility Benign essential hypertension Essential hypertension, benign Breast cancer screening by mammogram Menorrhagia with irregular cycle Pre-op examination Dyspareunia in female Menorrhagia with regular cycle Pelvic pain Dysmenorrhea documented in this encounter [facility]* Diagnosis Coccydynia- Primary Other disorder of coccyx Stress reaction Unspecified acute reaction to stress Iron deficiency anemia due to chronic blood loss Iron deficiency anemia secondary to blood loss (chronic) Memory loss Menorrhagia with irregular cycle Benign essential hypertension- Primary Essential hypertension, benign Benign essential hypertension- Primary Essential hypertension, benign Palpitation Palpitations Benign essential hypertension- Primary Essential hypertension, benign Palpitation Palpitations Iron deficiency anemia due to chronic blood loss Iron deficiency anemia secondary to blood loss (chronic) Annual physical exam- Primary Routine general medical examination at a health care facility Benign essential hypertension Essential hypertension, benign Breast cancer screening by mammogram Menorrhagia with irregular cycle Benign essential hypertension- Primary Essential hypertension, benign Menorrhagia with regular cycle Perimenopausal Symptomatic menopausal or female climacteric states documented in this encounter [facility]* Diagnosis Coccydynia- Primary Other disorder of coccyx Stress reaction Unspecified acute reaction to stress Iron deficiency anemia due to chronic blood loss Iron deficiency anemia secondary to blood loss (chronic) Memory loss Menorrhagia with irregular cycle Benign essential hypertension- Primary Essential hypertension, benign Benign essential hypertension- Primary Essential hypertension, benign Palpitation Palpitations Benign essential hypertension- Primary Essential hypertension, benign Palpitation Palpitations Iron deficiency anemia due to chronic blood loss Iron deficiency anemia secondary to blood loss (chronic) Annual physical exam- Primary Routine general medical examination at a health care facility Benign essential hypertension Essential hypertension, benign Breast cancer screening by mammogram Menorrhagia with irregular cycle Benign essential hypertension- Primary Essential hypertension, benign Menorrhagia with regular cycle Perimenopausal Symptomatic menopausal or female climacteric states Palpitation- Primary Palpitations documented in this encounter [facility] HealthcareReason for visit Narrative* Consultation (Routine) - Authorized Specialty Diagnoses / Procedures Referred By Georgina bynum Referred To Contact Physical Therapy Diagnoses S/P arthroscopy of left shoulder Procedures CT OFFICE/OUTPATIENT NEW HIGH MDM 60 MINUTES Daniel Gould, PA [address] [facility] [address] [place] [address] Phani Gay, PT [address] [place] [address] Referral ID Status Reason Start Date Expiration Date Visits Requested Visits Authorized [id number] Authorized Consult and Treat 06/09/2023 12/06/2023 30 30 [facility] Summary Purpose Family History No Family History Records FoundNo Family History Records FoundNo Family History Records FoundNo Family History Records Found Advance Directives No Advanced Directives Records Found Advance Directive Response Recorded Date/ Time Advance Directives No September 12, 2018 7:33pm Reason for Referral Specialty Diagnoses / Procedures Referred By Georgina bynum Referred To Contact Radiology Diagnoses Palpitation Procedures Holter monitor Jermain Sarabia MD [address] [place] [address] [facility] Referral ID Status Reason Start Date Expiration Date V isits Requested Visits Authorized [id number] Pending Review 01/17/2024 07/15/2024 1 1 Additional Source Comments INFORMATION SOURCE (unrecogn ized section and content) DATE CREATED AUTHOR 08/10/2021 [facility] DATE CREATED AUTHOR AUTHOR'S ORGANIZ ATION 12/29/2023 [facility] DATE CREATED AUTHOR AUTHOR'S ORGANIZ ATION 01/19/2024 [place] DATE CREATED AUTHOR AUTHOR'S ORGANIZ ATION 11/23/2024 [facility] EPIC Care Teams (unrecognized sec tion and content) Cloth Shrinking Tester Relationship Specialty Start Date End Date Jermain Sarabia MD [address] [place] [id number] PCP - General Family Medicine 06/05/23 Cloth Shrinking Tester Relationship Specialty Start Date End Date Jermain Sarabia MD [address] [place] [id number] PCP - General Family Medicine 06/05/23 Cloth Shrinking Tester Relationship Specialty Start Date End Date Jermain Sarabia MD [address] [place] [address] PCP - General Family Medicine 06/05/23 Team Status: Inactive Member Role Status Dates Vineet Nieto DO Attending Provider Active Start : December 22, 2023 End: December 22, 2023 Cloth Shrinking Tester Relationship Specialty Start Date End Date Jermain Sarabia MD [address] [place] [address] PCP - General Family Medicine 06/05/23 Cloth Shrinking Tester Relationship Specialty Start Date End Date Jermain Sarabia MD [address] [place] [address] PCP - General Family Medicine 06/05/23 Cloth Shrinking Tester Relationship Specialty Start Date End Date Jermain Sarabia MD [address] [place] [address] PCP - General Family Medicine 06/05/23 Cloth Shrinking Tester Relationship Specialty Start Date End Date Jermain Sarabia MD [address] [place] [address] PCP - General Family Medicine 06/05/23 Cloth Shrinking Tester Relationship Specialty Start Date End Date Jermain Sarabia MD [address] [place] [address] PCP - General Family Medicine 06/05/23 Cloth Shrinking Tester Relationship Specialty Start Date End Date Jermain Sarabia MD [address] [place] [address] PCP - General Family Medicine 06/05/23 Cloth Shrinking Tester Relationship Specialty Start Date End Date Jermain Sarabia MD [address] [place] [address] PCP - General Family Medicine 06/05/23 Cloth Shrinking Tester Relationship Specialty Start Date End Date Jermain Sarabia MD [address] [place] [address] PCP - General Family Medicine 06/05/23 Cloth Shrinking Tester Relationship Specialty Start Date End Date Jermain Sarabia MD [address] [place] [address] PCP - General Family Medicine 06/05/23 Cloth Shrinking Tester Relationship Specialty Start Date End Date Jermain Sarabia MD [address] [place] [address] PCP - General Family Medicine 06/05/23 Cloth Shrinking Tester Relationship Specialty Start Date End Date Jermain Sarabia MD [address] [place] [address] PCP - General Family Medicine 06/05/23 Cloth Shrinking Tester Relationship Specialty Start Date End Date Jermain Sarabia MD [address] [place] [address] PCP - General Family Medicine 06/05/23 Cloth Shrinking Tester Relationship Specialty Start Date End Date Jermain Sarabia MD [address] [place] [address] PCP - General Family Medicine 06/05/23 Cloth Shrinking Tester Relationship Specialty Start Date End Date Jermain Sarabia MD [address] [place] [address] PCP - General Family Medicine 06/05/23 Cloth Shrinking Tester Relationship Specialty Start Date End Date Jermain Sarabia MD [address] [place] [address] PCP - General Family Medicine 06/05/23 Cloth Shrinking Tester Relationship Specialty Start Date End Date Jermain Sarabia MD [address] [place] [address] PCP - General Family Medicine 06/05/23 Cloth Shrinking Tester Relationship Specialty Start Date End Date Jermain [place] MD [address] [place] [address] PCP - General Family Medicine 06/05/23 Goals (unrecognized section and content) Goals may be documented in a n alternate section Reason for Visit (unrecogniz ed section and content) Reason Comments Follow-up 1 M Reason Comments Post-op Visit Reason Comments Palpitations Hypertension First noticed runnin g high at beginning of December Reason Comments Follow-up 6m f/u Reason Comments Menorrhagia Abdominal Cramping Headache low iron Reason Comments Pre-op Visit Reason Comments Follow-up 3m FOR RECORDS PERTAINING TO PATIENTS WHO ARE [...] BE BASED ON THE PRIMARY CLINICAL RECORDS. [employer] provides no warranty or guarantee of the accuracy or completeness of information in this document.
--- NOTE | 2024-11-25 13:07 | ECG_ITS ---
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
[2024-11-25 13:32] LABS: Hematocrit 30.9 % (36.0-48.0); Hemoglobin 9.6 g/dL (12.0-16.0); Immature Granulocytes Abs Auto 0.01 10^3/uL (0.00-0.03); Immature Granulocytes Pct Auto 0.2 % (0.0-0.5); Lymphocytes Absolute Auto 1.4 10^3/uL (1.2-3.8); Mean Corpuscular HGB Conc 31.1 g/dL (29.9-35.2); Mean Corpuscular Hemoglobin 21.9 pg (26.7-34.0); Mean Corpuscular Volume 70.5 fL (81.0-99.0); Platelet Count 289 10^3/uL (150-450); Red Blood Count 4.38 10^6/uL (4.20-5.40); White Blood Count 5.5 10^3/uL (4.0-11.0)
[2024-11-25 13:52] LABS: INR 1.03; Partial Thromboplastin Time 24.7 sec (22.3-36.2); Prothrombin Time 10.9 sec (9.0-11.6)
[2024-11-25 13:59] LABS: Anion Gap 14.3; Blood Urea Nitrogen 11.0 mg/dL (7.0-18.0); Calcium 8.8 mg/dL (8.5-10.1); Carbon Dioxide 27.1 mmol/L (21.0-32.0); Chloride 105 mmol/L (98-107); Estimated GFR (African America >60 (>=60 mL/min/1.73m^2); Estimated GFR (Non-African Ame >60 (>=60 mL/min/1.73m^2); Glucose 93 mg/dL (74-106); Potassium 3.4 mmol/L (3.5-5.1); Sodium 143 mmol/L (136-145)
[2024-11-25 14:04] LABS: Alanine Aminotransferase 18 U/L (14-59); Albumin Globulin Ratio 1.1; Albumin Level 3.8 g/dL (3.4-5.0); Alkaline Phosphatase 89 U/L (46-116); Aspartate Amino Transferase 17 U/L (15-37); Globulin 3.6 g/dL; Total Protein 7.4 g/dL (6.4-8.2)
== END 2024-11-25 12:37 | disposition home or self-care (01) ==
PROVIDERS: PCP Family Medicine; Visit Provider Obstetrics & Gynecology
DX: Z01.812 Encounter for preprocedural laboratory examination (principal); Z01.810 Encounter for preprocedural cardiovascular examination; N92.0 Excessive and frequent menstruation with regular cycle; N94.10 Unspecified dyspareunia; N94.6 Dysmenorrhea, unspecified; R10.2 Pelvic and perineal pain
CPT/HCPCS: 80048; 80076; 85025; 85610; 85730; 86850; 86900; 86901; 93005

== ENCOUNTER 2024-11-27 06:18 | Day surgery (SDC) | payer OTHER, SELFPAY ==
--- OUTSIDE RECORDS SUMMARY | 2024-11-19 09:30 | XMS_ITS | Encounter Summary ---
Author Organization [facility] Address [address] [place] [address] Care Team Providers Care Edge Brusher Name Role Phone Jermain Davis MD Primary Care Provider [phone] Reason for Visit * Reason Comments Follow-up 3m Encounter Details Date Type Department Care Team ([facility] st Contact Info) Description 11/19/2024 9:30 AM EDT Office Visit [facility] [address] [place] [address] Jermain Davis MD [address] [place] [address] Benign essential hypertension (Primary Dx); Menorrhagia with [...] often do you attend chur ch or zoroastrian services? More than 4 times per year 08/17/2023 Do you belong to any clubs o r organizations such as sikhism groups, unions, fraternal or athletic groups, or [...] and heating? Not hard at all 08/17/2023 [facility] of Occupat ional Health - Occupational Stress [...] place to sleep or slept in a jail (including now)? No 08/17/2023 Comments No Sex [...] effects. Continues to have fatigue. Seen by tree tapping laborer for menorrhagia and will have robotic BEN [...] EDT Office Visit [facility] [address] [place] [phone] Cindy Goins PA [address] [facility] [place] [address] 01/08/2025 8:30 AM EDT Office Visit [facility] [address] [place] [phone] Cindy Goins PA [address] [facility] [place] [address] 02/21/2025 9:00 AM EDT Office Visit [facility] [address] [place] [address] Jermain Davis MD [address] [place] [address] documented as of this encounter Visit Diagnoses Diagnosis Benign essential hypertension- Primary Essential hypertension, benign Menorrhagia with regular cycle Perimenopausal Symptomatic menopausal or female climacteric states documented in this encounter Care Teams Edge Brusher Relationship Specialty Start Date End Date Jermain Davis MD [address] [place] [address] PCP - General Family Medicine 06/05/23 documented as of this encounter
[2024-11-25 12:53] VITALS: BP 137/90; PULSE 100; TEMP 36.5; O2SAT 99; BMI 29.8
[2024-11-27] VITALS (17 sets, daily range): BP systolic 107–152; BP diastolic 65–89; PULSE 65–113; TEMP 35.8–36.8; O2SAT 96–100
--- OUTSIDE RECORDS SUMMARY | 2024-11-27 06:20 | XMS_ITS | Encounter Summary ---
Author Organization [facility] Address [address] [facility] [place] [address] Care Team Providers Care Limousine Rental Clerk Name Role Phone Jermain Davis MD Primary Care Provider [phone] Encounter Details Date Type Department Care Team (Late st Contact Info) Description 12/13/2023 Abstract [facility] [address] [place] [address] Aris Nieto, DO [address] [facility] [place] [address] Social History Tobacco Use Types Packs/Day Years [...] often do you attend chur ch or hoahaoism services? More than 4 times per year 08/17/2023 Do you belong to any clubs o r organizations such as druze groups, unions, fraternal or athletic groups, or [...] and heating? Not hard at all 08/17/2023 [facility] [place] of Occupat ional Health - Occupational Stress [...] place to sleep or slept in a mcfp (including now)? No 08/17/2023 Comments No Sex [...] EDT Office Visit [facility] [address] [facility] [place] [address] Cindy Goins PA [address] [facility] [place] [address] 01/08/2025 8:30 AM EDT Office Visit [facility] [address] [facility] [place] [address] Cindy Goins PA [address] [facility] [address] [place], [place] [phone] 02/21/2025 9:00 AM EDT Office Visit [facility] [address] [place] [address] Jermain Davis MD [address] [place] [address] documented as of this encounter Visit Diagnoses Not on filedocumented in this encounter Care Teams Limousine Rental Clerk Relationship Specialty Start Date End Date Jermain Davis MD [address] [place] [phone] PCP - General Family Medicine 06/05/23 documented as of this encounter
--- OUTSIDE RECORDS SUMMARY | 2024-11-27 06:20 | XMS_ITS | Encounter Summary ---
Author Organization [facility] Address [address] [facility] [place] [address] Care Team Providers Care Picker Tender Name Role Phone Jermain Davis MD Primary Care Provider [phone] Encounter Details Date Type Department Care Team (Late st Contact Info) Description 11/19/2024 Bamboo flowsheet [facility] [address] [place] [address] Jermain Davis MD [address] [place] [address] Social History Tobacco Use Types Packs/Day Years [...] How often do you attend chur or sabianism services? More than 4 times per year 08/17/2023 Do you belong to any clubs o r organizations such as congregational groups, unions, fraternal or athletic groups, or [...] and heating? Not hard at all 08/17/2023 [facility] of Occupat ional Health - Occupational Stress [...] [facility] [place] [address] Cindy Goins, PA [address] [facility] [place] [address] 01/08/2025 8:30 AM EDT Office Visit [facility] [address] [facility] [place] [address] Cindy Goins, PA [address] [facility] [place] [address] 02/21/2025 9:00 AM EDT Office Visit [facility] [address] [place] [address] Jermain Davis MD [address] [place] [address] documented as of this encounter Visit Diagnoses Not on filedocumented in this encounter Care Teams Picker Tender Relationship Specialty Start Date End Date Jermain Davis MD [address] [place] [address] PCP - General Family Medicine 06/05/23 documented as of this encounter
--- OUTSIDE RECORDS SUMMARY | 2024-11-27 06:20 | XMS_ITS | Encounter Summary ---
Author Organization [facility] Address [address] [facility] [place] [address] Care Team Providers Care Direct Casting Operator Name Role Phone Jermain Davis MD Primary Care Provider [phone] Jermain Davis MD Primary Care Provider [phone] Encounter Details Date Type Department Care Team (Late Contact Info) Description 02/08/2023 Abstract [facility] [address] [place] [address] Edouard Weir, CHEMICAL OPERATIONS [facility] TRA[employer]ING [address] [place], [place] [phone] Social History Tobacco Use Types Packs/Day Years [...] EDT Office Visit [facility] [address] [facility] [place] [place] [address] Cindy Goins PA [address] [place] [address] 01/08/2025 8:30 AM EDT Office Visit [facility] [address] [facility] [place] [address] Cindy Goins PA [address] [facility] [place] [address] 02/21/2025 9:00 AM EDT Office Visit [facility] [address] [place] [address] Jermain Davis MD [address] [place] [address] documented as of this encounter Visit Diagnoses Not on filedocumented in this encounter Care Teams Direct Casting Operator Relationship Specialty Start Date End Date Jermain Davis MD PCP - General Family Medicine 11/07/22 06/04/23 Jermain Davis MD [address] [place] [address] PCP - General Family Medicine 06/05/23 documented as of this encounter
--- OUTSIDE RECORDS SUMMARY | 2024-11-27 06:20 | XMS_ITS | Encounter Summary ---
Author Organization [facility] Address [address] [facility] [place] [address] Care Team Providers Care Telephone Quotation Clerk Name Role Phone Jermain Davis MD Primary Care Provider [phone] Encounter Details Date Type Department Care Team (Late st Contact Info) Description 08/26/2024 Results Follow-Up [facility] [address] [place] [address] Jermain Davis MD [address] [place] [address] Social History Tobacco Use Types Packs/Day Years [...] often do you attend chur ch or oriental orthodox services? More than 4 times per year 08/17/2023 Do you belong to any clubs o r organizations such as hinduism groups, unions, fraternal or athletic groups, or [...] and heating? Not hard at all 08/17/2023 [facility] of Occupat ional Health - Occupational [...] place to sleep or slept in a fpc (including now)? No 08/17/2023 Comments No Sex [...] EDT Office Visit [facility] [address] [facility] [place] [place] [address] Cindy Goins PA [address] [facility] [place] [address] 01/08/2025 8:30 AM EDT Office Visit [facility] [address] [facility] [place] [place] [address] Cindy Goins, PA [address] [facility] [place] [address] 02/21/2025 9:00 AM EDT Office Visit [facility] [address] [place] [address] Jermain Davis MD [address] [place] [address] documented as of this encounter Visit Diagnoses Not on filedocumented in this encounter Care Teams Telephone Quotation Clerk Relationship Specialty Start Date End Date Jermain Davis MD [address] [place] [address] PCP - General Family Medicine 06/05/23 documented as of this encounter
--- OUTSIDE RECORDS SUMMARY | 2024-11-27 06:20 | XMS_ITS | Encounter Summary ---
Author Organization [facility] Address [address] [place] [address] Care Team Providers Care Bomb Technician Name Role Phone Jermain Davis MD Primary Care Provider [phone] Encounter Details Date Type Department Care Team (Late st Contact Info) Description 06/19/2023 [facility] [address] [place] [address] Jermain Davis MD [address] [place] [address] Social History Tobacco Use Types Packs/Day Years [...] EDT Office Visit [facility] [address] [facility] [place] [address] Cindy Goins PA [address] [place] [address] 01/08/2025 8:30 AM EDT Office Visit [facility] [address] [place] [address] Cindy Goins PA [address] [facility] [address] [place], [place] [address] 02/21/2025 9:00 AM EDT Office Visit [facility] [address] [place] [address] Jermain Davis MD [address] [place] [address] documented as of this encounter Procedures Procedure Name Priority Date/Time Associated Diagnosis Comments MISCELLANEOUS LAB TEST Routine 04/14/2023 12:38 PM EST documented in this encounter Results * - Miscellaneous Test (04/14/2023 12:38 PM EST) Jermain Davis MD LAB BLOOD ORDERABLES Final Resul t documented in this encounter Visit Diagnoses Not on filedocumented in this encounter Care Teams Bomb Technician Relationship Specialty Start Date End Date Jermain Davis MD [address] [place] [address] PCP - General Family Medicine 06/05/23 documented as of this encounter
--- OUTSIDE RECORDS SUMMARY | 2024-11-27 06:20 | XMS_ITS | Encounter Summary ---
Author Organization [facility] Address [address] [place] [address] Care Team Providers Care Regulatory Attorney Name Role Phone Jermain Davis MD Primary Care Provider [phone] Encounter Details Date Type Department Care Team [...] How often do you attend chur or yarsanism services? More than 4 times per year 08/17/2023 Do you belong to any clubs o r organizations such as oriental orthodox groups, unions, fraternal or athletic groups, or [...] and heating? Not hard at all 08/17/[address] [facility] - Occupational Stress Questionnaire Answer Date Recorded [...] place to sleep or slept in a group home (including now)? No 08/17/2023 Comments No Sex [...] 12/04/2024 9:30 AM EDT Office Visit [facility] OB [address] [facility] [place] [address] Cindy Goins PA [address] [facility] [address] [place], [place] [address] 01/08/2025 8:30 AM EDT Office Visit [facility] OB [address] [place] [address] Cindy Goins, PA [address] [facility] [address] 02/21/2025 9:00 AM EDT Office Visit [facility] [address] [place] [address] Jermain Davis MD [address] [place] [address] documented as of this encounter Procedures Procedure Name Priority Date/Time Associated Diagnosis Comments ECG 12-LEAD 12/12/2023 11:18 AM EDT documented in this encounter Results * ECG 12-LEAD (12/12/2023 11:18 AM EDT) Anatomical Region Laterality Modality Other 12/12/2023 11:1 8 AM EDT Narrative 12/12/2023 11:07 PM EDT The [address] [address] Electrocardiograph Report Signed Patient: Corrina Dobbs MR#: [id number] : 1980 Acct:[id number] Age/Sex: 43 / F ADM Date: 12/12/23 Loc: PST Attending Dr: Vineet Nieto D.O. Ordering Physician: Vineet Nieto D.O. Date of Service: 12/12/23 Procedure(s): ECG 12 lead Accession Number(s): [id number] cc: [facility] Test Date: 2023-12-12 Pat Name: Corrina Dobbs Department: Room: - Gender: Female Operations Superintendent: : 1980 Requested By: VINEET NIETO Order Number: [id number] Reading MD: CELESTINO DEAN Measurements Intervals [place] Rate: 76 P: 60 SC: 131 QRS: 16 QRSD: 89 T: 29 QT: 349 QTc: 394 Interpretive Statements SINUS RHYTHM No previous ECG available for comparison Electronically Signed On 12-12-2023 23:07:04 EDT by CELESTINO DEAN Dictated By: Celestino Dean D.O. Signed By: 12/12/232306 DD/ 111 TD/TT: Pin Inserter Regulator: Procedure Note Radiology, Radiologist, - 12/12/2023 [place] [address] Electrocardiograph Report Signed Patient: Corrina Dobbs LMR#: [id number] : 1980Acct:[id number] Age/Sex: 43 / FADM Date: 12/12/23 Loc: [facility] Attending Dr: Vineet Nieto D.O. Ordering Physician: Vineet Nieto D.O. Date of Service: 12/12/23 Procedure(s): ECG 12 lead Accession Number(s): [id number] cc: [facility] Test Date: 2023-12-12 Pat Name: Corrina Dobbs Department: Room: - Gender: Female Operations Superintendent: : 1980 Requested By: VINEET NIETO Order Number: [id number] Reading MD: CELESTINO DEAN Measurements Intervals [place] Rate: 76 P: 60 SC: 131 QRS: 16 QRSD: 89 T: 29 QT: 349 QTc: 394 Interpretive Statements SINUS RHYTHM No previous ECG available for comparison Electronically Signed On 12-12-2023 23:07:04 EDT by CELESTINO DEAN Dictated By: Celestino Dean D.O. Signed By:12/12/232306 DD/ 1118 TD/TT: Pin Inserter Regulator: us Generic External Data Provider [facility] Final Result documented in this encounter Visit Diagnoses Not on filedocumented in this encounter Care Teams Regulatory Attorney Relationship Specialty Start Date End Date Jermain Davis MD [address] [place] [address] PCP - General Family Medicine 06/05/23 documented as of this encounter
--- OUTSIDE RECORDS SUMMARY | 2024-11-27 06:20 | XMS_ITS | Encounter Summary ---
Author Organization [facility] Address [address] [facility] [place] [address] Care Team Providers Care Boat Joiner Name Role Phone Jermain Davis MD Primary Care Provider [phone] Encounter Details Date Type Department Care Team (Late st Contact Info) Description 11/20/2024 Orders Only [facility] [address] [place] [address] Jermain Davis MD [address] [place] [address] Palpitation (Primary Dx) Social History Tobacco Use [...] How often do you attend chur or presybeterian services? More than 4 times per year 08/17/2023 Do you belong to any clubs o r organizations such as baptism groups, unions, fraternal or athletic groups, or [...] and heating? Not hard at all 08/17/2023 [facility] of Occupat ional [facility] - Occupational Stress Questionnaire Answer Date Recorded [...] place to sleep or slept in a skilled nursing (including now)? No 08/17/2023 Comments No Sex [...] EDT Office Visit [facility] OB [address] [place] [address] Cindy Goins PA [address] [facility] [place] [address] 01/08/2025 8:30 AM EDT Office Visit [facility] [address] [place] [address] Cindy Goins PA [address] [facility] [place] [address] 02/21/2025 9:00 AM EDT Office Visit [facility] [address] [place] [address] Jermain Davis MD [address] [place] [address] documented as of this encounter Visit Diagnoses Diagnosis Palpitation- Primary Palpitations documented in this encounter Care Teams Boat Joiner Relationship Specialty Start Date End Date Jermain Davis MD [address] [place] [address] PCP - General Family Medicine 06/05/23 documented as of this encounter
--- OUTSIDE RECORDS SUMMARY | 2024-11-27 06:20 | XMS_ITS | Encounter Summary ---
Author Organization [facility] Address [address] [place] [facility] [place] [address] Care Team Providers Care Security Control Assessor Name Role Phone Jermain Davis MD Primary Care Provider [phone] Encounter Details Date Type Department Care Team (Late st Contact Info) Description 01/24/2024 Orders Only [facility] [address] [place] [address] Jermain Davis MD [address] [place] [address] Social History Tobacco Use Types Packs/Day Years [...] often do you attend chur ch or scientologist services? More than 4 times per year 08/17/2023 Do you belong to any clubs o r organizations such as samaritan groups, unions, fraternal or athletic groups, or [...] and heating? Not hard at all 08/17/2023 [facility] of Occupat ional Health - Occupational Stress [...] place to sleep or slept in a fci (including now)? No 08/17/2023 Comments No Sex [...] EDT Office Visit [facility] OB [address] [facility] [place] [address] Cindy Goins PA [address] [facility] [place] [address] 01/08/2025 8:30 AM EDT Office Visit [facility] [address] [facility] [place] [address] Cindy Goins PA [address] [facility] [place] [address] 02/21/2025 9:00 AM EDT Office Visit [facility] [address] [place] [address] Jermain Davis MD [address] [place] [address] documented as of this encounter Procedures Procedure [...] on filedocumented in this encounter Care Teams Security Control Assessor Relationship Specialty Start Date End Date Jermain Dvais MD [address] [place] [address] PCP - General Family Medicine 06/05/23 documented as of this encounter
--- OUTSIDE RECORDS SUMMARY | 2024-11-27 06:20 | XMS_ITS | Encounter Summary ---
Author Organization [facility] Address [address] [place] [address] Care Team Providers Care Manager Corporate Name Role Phone Jermain Davis MD Primary Care Provider [phone] Encounter Details Date Type Department Care Team (Late st Contact Info) Description 01/01/2024 Abstract [facility] [address] [place] [address] Aris Nieto, DO [address] [facility] [place] [address] Social History Tobacco Use Types Packs/Day Years [...] often do you attend chur ch or faith services? More than 4 times per year 08/17/2023 Do you belong to any clubs o r organizations such as methodist groups, unions, fraternal or athletic groups, or [...] and heating? Not hard at all 08/17/2023 [facility] [place] of Occupat ional Health - Occupational Stress [...] EDT Office Visit [facility] [address] [facility] [place] [address] Cindy Goins PA [address] [facility] [place] [address] 01/08/2025 8:30 AM EDT Office Visit [facility] OB [address] [facility] [place] [address] Cindy Goins PA [address] [facility] [facility] [address] [place], [place] [address] 02/21/2025 9:00 AM EDT Office Visit [facility] [address] [place] [address] Jermain Davis MD [address] [place] [address] documented as of this encounter Visit Diagnoses Not on filedocumented in this encounter Care Teams Manager Corporate Relationship Specialty Start Date End Date Jermain Davis MD [address] [place] [address] PCP - General Family Medicine 06/05/23 documented as of this encounter
--- OUTSIDE RECORDS SUMMARY | 2024-11-27 06:20 | XMS_ITS | Clinical Summary ---
Author Organization [facility] Address [address] [place] [address] Care Team Providers Care Case Supervisor Name Role Phone Jermain Davis MD Primary Care Provider [phone] Allergies Active Allergy Reactions Criticality Noted Date [...] with iron supplement and continue. Follow with manager investment banking. Assessment & Plan (08/17/2023 3:02 PM EDT): [...] ablation and resume iron supplement. Follow with manager investment banking. Assessment & Plan (08/17/2023 3:03 PM EDT): Heavy periods and check labs. Need to see manager investment banking. Status post arthroscopy of left shoulder 024 [...] Encounters Date Type Department Care Team Description 11/25/2024 Clinisync Result Encounter [facility] External Department Unsolicited Provider, Generic External Data 11/20/2024 Orders Only [facility] [address] [place] [phone] Jermain Davis MD Palpitation (Primary Dx) 11/19/2024 9:30 AM EDT Office Visit [facility] [address] [place] [phone] Jermain Davis MD Benign essential hypertension (Primary Dx); Menorrhagia with regular cycle; Perimenopausal 11/19/2024 Bamboo flowsheet [facility] FM [address] [place] [address] Jermain Davis MD 11/18/2024 Travel 10/29/2024 8:50 AM EDT Consult [facility] [address] [facility] [place] [address] Aris Nieto DO Pre-op examination; Dyspareunia in female; Menorrhagia with regular cycle; Pelvic pain; Dysmenorrhea 10/29/2024 Bamboo flowsheet [facility] [address] [facility] [place] [address] Aris Nieto, 10/22/2024 Travel 09/17/2024 Refill [facility] FM [address] [place] [address] Jermain Davis MD Benign essential hypertension 09/09/2024 2:50 PM EDT Office Visit [facility] [address] [place] [address] Aris Nieto DO Menorrhagia with regular cycle; Abdominal cramping; Acute nonintractable headache, unspecified headache type; Low serum iron 09/09/2024 Bamboo flowsheet [facility] [address] [facility] [place] [address] Aris Nieto, 09/02/2024 Travel 08/28/2024 Results Follow-Up [facility] FM [address] [place] [address] Jermain Davis MD from Last 3 Months Family History Medical [...] How often do you attend chur or taoism services? More than 4 times per year [...] and heating? Not hard at all 08/17/2023 [facility] of Occupat ional Health - Occupational Stress [...] place to sleep or slept in a chcf (including now)? No 08/17/2023 Comments No Sex [...] EDT Office Visit [facility] [address] [facility] [place] [address] Cindy Goins PA [address] [facility] [place] [address] 01/08/2025 8:30 AM EDT Office Visit [facility] [address] [facility] [place] [address] Cindy Goins, PA [address] [facility] [place] [address] 02/21/2025 9:00 AM EDT Office Visit [facility] [address] [place] [address] Jermain Davis MD [address] [place] [address] Health Maintenance Due Date Last Done Comments Influenza Vaccine (#1) 2025 02/06/2018 Mammogram 08/23/2025 08/23/2024, 04/14/2023 Cervical Cancer Screening 09/19/2028 HPV/Cotest 09/19/2028 Pap Smear 09/19/2028 09/20/2023 Procedures Procedure Name Priority Date/Time Associated Diagnosis Comments ALL TYPE AND SCREEN Routine 11/25/2024 1 :04 PM EDT [facility] LIVER PANEL Routine 11/25/2024 1:04 PM EDT CCF APTT Routine 11/25/2024 1:04 PM EDT [facility] PROTHROMBIN TIME INR W/O COUM Routine 11/25/2024 1:04 PM EDT ALL BASIC METABOLIC PANEL Routine 11/25/2024 1:04 PM EDT ALL CBC WITH AUTO DIFF Routine 1:04 PM EDT BI MAMMOGRAM SCREENING TOMOSYNTHESIS BILATERAL Routine 08/23/2024 3:19 PM EDT Breast cancer screening by mammogram PAP SMEAR Routine 09/20/2023 12:00 AM EDT from Last 3 Months or Most Recently Relevant to Health Maintenance Results * [facility] PROTHROMBIN TIME INR W/O COUM (11/25/2024 1:04 PM EDT) PROTHROMBIN TIME 10.9 9.0 - 11.6 sec TBH TBH INR 1.03 TBH Comment: DESIRED INR: 2.0-3.0 CONDITIONS NOT LISTED BELOW 2.5-3.5 FOR PROSTHETIC HEART VALVE REPLACEMENT 2.5-3.5 RECURRENT THROMBOSIS 11/25/2024 1:04 PM EDT 11/25/2024 1:18 PM EDT Narrative CLINISYNC - 11/25/2024 2:04 PM EDT TeaMobi Gerson DO CLINISYNC Final Result Performing Organization Address [facility]/ZIP Co de Phone Number [facility] * HMHP LIVER PANEL (11/25/2024 1:04 PM EDT) BILIRUBIN TOTAL 0.4 0.2 - 1.0 mg/dL TBH BILIRUBIN DIRECT 0.1 0.0 - 0.2 mg/dL TBH ASPARTATE AMINO TRANSFERASE 17 15 - 37 U/L TBH ALANINE AMINOTRANSFERASE 18 14 - 59 U/L TBH ALKALINE PHOSPHATASE 89 46 - 116 U/L TBH TOTAL PROTEIN 7.4 6.4 - 8.2 g/dL TBH ALBUMIN LEVEL 3.8 3.4 - 5.0 g/dL TBH GLOBULIN 3.6 g/dL TBH ALBUMIN GLOBULIN RATIO 1.1 TBH 11/25/2024 1:04 PM EDT 11/25/2024 1:18 PM EDT Narrative CLINISYNC - 11/25/2024 2:10 PM EDT Aris Gerson DO CLINISYNC Final Result Performing Organization Address City/[facility]/ZIP Co de Phone Number [facility] * CCF APTT (11/25/2024 1:04 PM EDT) PARTIAL THROMBOPLASTIN TIME 24.7 22.3 - 36.2 sec TBH 11/25/2024 1:04 PM EDT 11/25/2024 1:18 PM EDT Narrative CLINISYSC - 11/25/2024 2:04 PM EDT us Aris Gerson DO CLINISYNC Final Result [facility] * ALL TYPE AND SCREEN (11/25/2024 1:04 PM EDT) [facility] BLOOD TYPE O Negative TBH ANTIBODY SCREEN NEGATIVE TBH 11/25/2024 1:04 PM EDT 11/25/2024 1:18 PM EDT Narrative [facility] - 11/25/2024 4:14 PM EDT [facility] , us Aris Gerson DO CLINISYNC Final Result Performing Organization Address City/[facility]/ZIP Co de Phone Number [facility] * (ABNORMAL) ALL CBC WITH AUTO DIFF (11/25/2024 1:04 PM EDT) [facility] WBC 5.5 4.0 - 11.0 10 3/uL TBH TB RBC 4.38 4.20 - 5.40 10 6/uL TBH TBH HGB 9.6(L) 12.0 - 16.0 g/dL TB TB HCT 30.9(L) 36.0 - 48.0 % TBH TBH MCV 70.5(L) 81.0 - 99.0 fL TBH TB MCH 21.9(L) 26.7 - 34.0 pg TBH TB MCHC 31.1 29.9 - 35.2 g/dL TB TB RDW 15.9(H) 11.0 - 15.0 % TBH TBH PLT 289 150 - 450 10 3/uL TBH TBH MPV 10.9 9.5 - 13.5 fL TBH NEUTROPHILS PERCENT AUTO 68.4 43.0 - 75.0 % TBH LYMPHOCYTES PERCENT AUTO 24.4 20.5 - 60.0 % TBH MONOCYTES PERCENT AUTO 5.4 1.7 - 12.0 % TBH TBH EO % 0.9 0.9 - 7.0 % TBH BASOPHILS PERCENT AUTO 0.7 0.2 - 2.0 % TBH IMMATURE GRANULOCYTES PCT AUTO 0.2 0.0 - 0.5 % TBH NEUTROPHILS ABSOLUTE AUTO 3.8 1.4 - 6.5 10 3/uL TBH LYMPHOCYTES ABSOLUTE AUTO 1.4 1.2 - 3.8 10 3/uL TBH MONOCYTES ABSOLUTE AUTO 0.3 0.3 - 0.8 10 3/uL TBH TBH EO # 0.1 0.0 - 0.7 10 3/uL TBH BASOPHILS ABSOLUTE AUTO 0.0 0.0 - 0.1 10 3/uL TBH IMMATURE GRANULOCYTES ABS AUTO 0.01 0.00 - 0.03 10 3/uL TBH 11/25/2024 1:04 PM EDT 11/25/2024 1:18 PM EDT Narrative CLINISYNC - 11/25/2024 1:39 PM EDT us Aris Gerson DO CLINISYNC Final Result [facility] * (ABNORMAL) ALL BASIC METABOLIC PANEL (11/25/2024 1:04 PM EDT) SODIUM 143 136 - 145 mmol/L TBH POTASSIUM 3.4(L) 3.5 - 5.1 mmol/L TBH CHLORIDE 105 98 - 107 mmol/L TBH CARBON DIOXIDE 27.1 21.0 - 32.0 mmol/L TBH ANION GAP 14.3 TBH GLUCOSE 93 74 - 106 mg/dL TBH BLOOD UREA NITROGEN 11.0 7.0 - 18.0 mg/dL TBH CREATININE 0.54(L) 0.55 - 1.02 mg/dL TBH TBH EGFR-AF JAPANESE >60 >=60 mL/min/1.7 3m 2 TBH TBH EGFR-NON AF JAPANESE >60 >=60 mL/min/1.7 3m 2 TBH BUN CREATININE RATIO 20.4 TBH CALCIUM 8.8 8.5 - 10.1 mg/dL TBH 11/25/2024 1:04 PM EDT 11/25/2024 1:18 PM EDT Narrative [facility] - 11/25/2024 1:59 PM EDT us Aris Gerson GROSS Final Result [facility] * (ABNORMAL) Bilateral screening mammogram with tomosynthesis (08/23/2024 3:19 PM EDT) Anatomical Region Laterality Modality Breast Bilateral Mammography 08/24/2024 2:08 PM EDT Impressions 08/24/2024 2:26 PM EDT [...] Swab Cervical swab / Unknown us Ca L Jannet [facility] LAB CYTOLOGY ORDERABLES Carol tay Result EXTERNAL LAB from Last 3 Months or Most Recently Relevant to Health Maintenance Insurance [employer] Care Teams Case Supervisor Relationship Specialty Start Date End Date Jermain Davis MD [address] [place] [address] PCP - General Family Medicine 06/05/23
--- OUTSIDE RECORDS SUMMARY | 2024-11-27 06:20 | XMS_ITS | Encounter Summary ---
Author Organization [facility] Address [address] [facility] [place] [address] Care Team Providers Care Traveling Plant Operator Name Role Phone Jermain Davis MD Primary Care Provider [phone] Encounter Details Date Type Department Care Team (Late st Contact Info) Description 01/04/2024 Abstract [facility] [address] [place] [address] Aris Nieto, DO [address] [facility] [place] [address] Social History Tobacco Use Types Packs/Day Years [...] any clubs o r organizations such as tenriism groups, unions, fraternal or athletic groups, or [...] and heating? Not hard at all 08/17/2023 [facility] [place] of Occupat ional Health - Occupational Stress [...] a halfway (including now)? No 08/17/2023 Comments No Sex [...] EDT Office Visit [facility] [address] [facility] [place] [phone] Cindy Goins PA [address] [facility] [place] [address] 01/08/2025 8:30 AM EDT Office Visit [facility] OB [address] [facility] [place] [address] Cindy Goins PA [address] [facility] [address] [place], [place] [phone] 02/21/2025 9:00 AM EDT Office Visit [facility] [address] [place] [address] Jermain Davis MD [address] [place] [address] documented as of this encounter Visit Diagnoses Not on filedocumented in this encounter Care Teams Traveling Plant Operator Relationship Specialty Start Date End Date Jermain Davis MD [address] [place] [address] PCP - General Family Medicine 06/05/23 documented as of this encounter
--- OUTSIDE RECORDS SUMMARY | 2024-11-27 06:20 | XMS_ITS | Clinical Summary ---
Author Organization [facility] Address [facility] [id number] [address] [place] [address] Care Team Providers Care Writing Manager Name Role Phone Jermain Davis MD Primary Care Provider [phone] Allergies Active Allergy Reactions Criticality Noted Date [...] Not on file Insurance [employer] Care Teams Writing Manager Relationship Specialty Start Date End Date Jermain Davis MD PCP - General Family Medicine 04/12/23
--- OUTSIDE RECORDS SUMMARY | 2024-11-27 06:20 | XMS_ITS | Encounter Summary ---
Author Organization [facility] Address [address] [place] [address] Care Team Providers Care Jet Ski Mechanic Name Role Phone Jermain Davis MD Primary Care Provider [phone] Reason for Referral * OBGYN (Routine) - Closed Specialty Diagnoses / Procedures Referred By Contac t Referred To Contact Obstetrics and Gynecology Diagnoses Thickened endometrium Procedures [place] [facility] MDM 60 MINUTES Ca Power CNM [address] [place] [address] Phone: tel: fax: Aris Nieto, [address] [place] [address] Phone: tel: fax: Referral ID Status Reason Start Date Expiration Date V isits Requested Visits Authorized [id number] Closed Specialty Services Required 10/05/2023 04/02/2024 1 1 Encounter Details Date Type Department Care Team (Late st Contact Info) Description 10/05/2023 Orders Only [facility] [address] [place] [phone] Ca Power CNM [address] [place], [place] [phone] Thickened endometrium (Primary Dx) Social History Tobacco [...] How often do you attend chur or yazdanism services? More than 4 times per year 08/17/2023 Do you belong to any clubs o r organizations such as mu-ism groups, unions, fraternal or athletic groups, or [...] and heating? Not hard at all 08/17/2023 [facility] of Occupat ional Health - Occupational Stress [...] 12/04/2024 9:30 AM EDT Office Visit [facility] OB [address] [facility] [place] [address] Cindy Goins PA [address] [place] [address] [place] [address] 01/08/2025 8:30 AM EDT Office Visit [facility] OB [address] [facility] [place] [address] Cindy Goins PA [address] [facility] [place] [address] 02/21/2025 9:00 AM EDT Office Visit [facility] [address] [place] [phone] Jermain Davis MD [address] [place] [address] Scheduled Referrals Name Type Priority Associated Diagnoses Orde r Schedule Ambulatory referral to Obstetrics / Gynecology Outpatient Referral Routine Thickened endometrium Expected: 10/05/2023 (Approximate), Expires: 04/06/2024 documented as of this encounter Visit Diagnoses Diagnosis Thickened endometrium- Primary Nonspecific (abnormal) findings on radiological and other examination of genitourinary organs documented in this encounter Care Teams Jet Ski Mechanic Relationship Specialty Start Date End Date Jermain Davis MD [address] [place] [address] PCP - General Family Medicine 06/05/23 documented as of this encounter
--- OUTSIDE RECORDS SUMMARY | 2024-11-27 06:20 | XMS_ITS | Encounter Summary ---
Author Organization [facility] Address [address] [place] [address] Care Team Providers Care Commercial Pest Control Representative Name Role Phone Jermain Davis MD Primary Care Provider [phone] Encounter Details Date Type Department Care Team (Late st Contact Info) Description 06/28/2024 Orders Only [facility] [address] [place] [phone] Irina Guerrero MD [facility], [address] [place], [place] [phone] Social History Tobacco Use Types Packs/Day Years [...] often do you attend chur ch or sikhism services? More than 4 times per year 08/17/2023 Do you belong to any clubs o r organizations such as mormonism groups, unions, fraternal or athletic groups, or [...] and heating? Not hard at all 08/17/2023 [facility] of Occupat ional Health - Occupational Stress [...] place to sleep or slept in a usp (including now)? No 08/17/2023 Comments No Sex [...] [facility] [address] [facility] [place] [phone] Cindy Goins PA [address] [facility] [place] [address] 01/08/2025 8:30 AM EDT Office Visit [facility] OB [address] [facility] [place] [phone] Cindy Goins PA [address] [facility] [address] [place], [place] [address] 02/21/2025 9:00 AM EDT Office Visit [facility] [address] [place] [phone] Jermain Davis MD [address] [place] [address] documented as of this encounter Procedures Procedure Name Priority Date/Time Associated Diagnosis Comments DIABETES EYE EXAM Routine 06/28/2024 9:07 AM EST documented in this encounter Results * Diabetes Eye Exam (06/28/2024 9:07 AM EST) Irina Guerrero MD HEALTH MAINTENANCE Final Resul t documented in this encounter Visit Diagnoses Not on filedocumented in this encounter Care Teams Commercial Pest Control Representative Relationship Specialty Start Date End Date Jermain Davis MD [address] [place] [address] PCP - General Family Medicine 06/05/23 documented as of this encounter
--- OUTSIDE RECORDS SUMMARY | 2024-11-27 06:20 | XMS_ITS | Encounter Summary ---
Author Organization [facility] Address [address] [facility] [place] [address] Care Team Providers Care Robotics Engineer Name Role Phone Jermain Davis MD Primary Care Provider [phone] Encounter Details Date Type Department Care Team (Late st Contact Info) Description 08/28/2024 Results Follow-Up [facility] [address] [place] [address] Jermain Davis MD [address] [place] [address] Social History Tobacco Use Types Packs/Day Years [...] often do you attend chur ch or yazidism services? More than 4 times per year 08/17/2023 Do you belong to any clubs o r organizations such as yazdanism groups, unions, fraternal or athletic groups, or [...] and heating? Not hard at all 08/17/2023 [facility] of Occupat ional Health - [...] EDT Office Visit [facility] [address] [facility] [place] [address] Cindy Goins PA [address] [facility] [place] [address] 01/08/2025 8:30 AM EDT Office Visit [facility] OB [address] [facility] [place] [address] Cindy Goins, PA [address] [facility] [place] [address] 02/21/2025 9:00 AM EDT Office Visit [facility] [address] [place] [phone] Jermain Davis MD [address] [place] [address] documented as of this encounter Visit Diagnoses Not on filedocumented in this encounter Care Teams Robotics Engineer Relationship Specialty Start Date End Date Jermain Davis MD [address] [place] [address] PCP - General Family Medicine 06/05/23 documented as of this encounter
--- OUTSIDE RECORDS SUMMARY | 2024-11-27 06:20 | XMS_ITS | Encounter Summary ---
Author Organization [facility] Address [address] [place] [address] Care Team Providers Care Diamond Sander Name Role Phone Jermain Davis MD Primary Care Provider [phone] Encounter Details Date Type Department Care Team (Late st Contact Info) Description 11/25/2024 Clinisync Result Encounter [facility] External [...] any clubs o r organizations such as christianity groups, unions, fraternal or athletic groups, or [...] and heating? Not hard at all 08/17/2023 [facility] - Occupational Stress Questionnaire Answer Date Recorded [...] place to sleep or slept in a [place] health care facility (including now)? No 08/17/2023 Comments No Sex [...] Office Visit [facility] [address] [facility] [place] [address] Cindy Goins, PA [address] [facility] [address] [place], [place] [address] 01/08/2025 8:30 AM EDT Office Visit [facility] OB [address] [facility] [place] [address] Cindy Goins, PA [address] [facility] [place] [address] 02/21/2025 9:00 AM EDT Office Visit [facility] [address] [place] [address] Jermain Davis MD [address] [place] [address] documented as of this encounter Procedures Procedure Name Priority Date/Time Associated Diagnosis Comments SRMCOH PROTHROMBIN TIME INR W/O COUM Routine 11/25/2024 1:04 PM EDT HM[facility] LIVER PANEL Routine 11/25/2024 1:04 PM EDT CCF APTT Routine 11/25/2024 1:04 PM EDT ALL TYPE AND SCREEN Routine 11/25/2024 1 :04 PM EDT ALL CBC WITH AUTO DIFF Routine 11/25/2024 1:04 PM EDT ALL BASIC METABOLIC PANEL Routine 11/25/2024 1:04 PM EDT documented in this encounter Results * ALL TYPE AND SCREEN (11/25/2024 1:04 PM EDT) BLOOD TYPE O Negative TBH ANTIBODY SCREEN NEGATIVE TBH 11/25/2024 1:04 PM EDT 11/25/2024 1:18 PM EDT Narrative CLINISYNC - 11/25/2024 4:14 PM EDT [facility] , [place] Aris Gerson DO CLINISYNC Final Result CLINISYNC TB * HMHP LIVER PANEL (11/25/2024 1:04 PM [...] Narrative CLINISYNC - 11/25/2024 2:10 PM EDT us Aris Gerson DO CLINISYNC Final Result CLINISYNC TBH * CCF APTT (11/25/2024 1:04 PM EDT) PARTIAL THROMBOPLASTIN TIME 24.7 22.3 - 36.2 sec TBH 11/25/2024 1:04 PM EDT 11/25/2024 1:18 PM EDT Narrative CLIN[facility]YNC - 11/25/2024 2:04 PM EDT us Aris Gerson DO CLINISYNC Final Result [facility] * [facility] PROTHROMBIN TIME INR W/O COUM (11/25/2024 1:04 PM EDT) PROTHROMBIN TIME 10.9 9.0 - 11.6 sec TB TB INR 1.03 TB Comment: DESIRED INR: 2.0-3.0 CONDITIONS NOT LISTED BELOW 2.5-3.5 FOR PROSTHETIC HEART VALVE REPLACEMENT 2.5-3.5 RECURRENT THROMBOSIS 11/25/2024 1:04 PM EDT 11/25/2024 1:18 PM EDT Narrative CLINISYNC - 11/25/2024 2:04 PM EDT Arisabdirahman Langleyo DO CLINISYNC Final Result Performing Organization Address [facility] Co de Phone Number [facility] * (ABNORMAL) ALL BASIC METABOLIC PANEL (11/25/2024 [...] 0.55 - 1.02 mg/dL TBH TBH EGFR-AF MARSHALLESE >60 >=60 mL/min/1.7 3m 2 TBH TBH EGFR-NON AF MARSHALLESE >60 >=60 mL/min/1.7 3m 2 TBH BUN CREATININE RATIO 20.4 TBH CALCIUM 8.8 8.5 - 10.1 mg/dL TB 11/25/2024 1:04 PM EDT 11/25/2024 1:18 PM EDT Narrative CLINISYNC - 11/25/2024 1:59 PM EDT Aris Gerson DO CLINISYNC Final Result Performing Organization Address [facility]/ZIP Co de Phone Number [facility] TB * (ABNORMAL) ALL CBC WITH AUTO DIFF (11/25/2024 1:04 PM EDT) [facility] TB WBC 5.5 4.0 - 11.0 10 3/uL TBH TBH RBC 4.38 4.20 - 5.40 10 6/uL TBH TBH HGB 9.6(L) 12.0 - 16.0 g/dL TBH TBH HCT 30.9(L) 36.0 - 48.0 % TBH TBH MCV 70.5(L) 81.0 - 99.0 fL TBH TBH MCH 21.9(L) 26.7 - 34.0 pg TBH TBH MCHC 31.1 29.9 - 35.2 g/dL TBH TBH RDW 15.9(H) 11.0 - 15.0 % TBH [...] PM EDT 11/25/2024 1:18 PM EDT Narrative [facility]EE [facility] - 11/25/2024 1:39 PM EDT us Aris Gerson DO CLINISYNC Final Result CLINISYNC TB documented in this encounter Visit Diagnoses Not on filedocumented in this encounter Care Teams Diamond Sander Relationship Specialty Start Date End Date Jermain Davis MD [address] [place] [address] PCP - General Family Medicine 06/05/23 documented as of this encounter
--- OUTSIDE RECORDS SUMMARY | 2024-11-27 06:20 | XMS_ITS | Encounter Summary ---
Author Organization [facility] Address [address] [facility] [place] [address] Care Team Providers Care Slide Attendant Name Role Phone Jermain Davis MD Primary Care Provider [phone] Encounter Details Date Type Department Care Team (Late st Contact Info) Description 08/22/2023 Orders Only [facility] [address] [place] [address] Jermain Daivs MD [address] [place] [address] Social History Tobacco Use Types Packs/Day Years [...] often do you attend chur ch or scientology services? More than 4 times per year [...] and heating? Not hard at all 08/17/2023 [facility] [place] of Occupat ional Health - Occupational Stress [...] place to sleep or slept in a assisted (including now)? No 08/17/2023 Comments Unknown Sex [...] Visit [facility] OB [address] [facility] [place] [phone] Cindy Goins PA [address] [facility] [place] [address] 01/08/2025 8:30 AM EDT Office Visit [facility] OB [address] [facility] [place] [address] Cindy Goins PA [address] [facility] [address] [place], [place] [address] 02/21/2025 9:00 AM EDT Office Visit [facility] [address] [place] [phone] Jermain Davis MD [address] [place] [address] documented as of this encounter Procedures Procedure Name Priority Date/Time Associated Diagnosis Comments MISCELLANEOUS LAB TEST Routine 08/18/2023 3:59 PM EDT documented in this encounter Results * - Miscellaneous Test (08/18/2023 3:59 PM EDT) Jermain Davis MD LAB BLOOD ORDERABLES Final Resul t documented in this encounter Visit Diagnoses Not on filedocumented in this encounter Care Teams Slide Attendant Relationship Specialty Start Date End Date Jermain Davis MD [address] [place] [address] PCP - General Family Medicine 06/05/23 documented as of this encounter
--- OUTSIDE RECORDS SUMMARY | 2024-11-27 06:20 | XMS_ITS | Encounter Summary ---
Author Organization [facility] Address [address] [place] [address] Care Team Providers Care Cnc Milling Machinist Name Role Phone Jermain Davis MD Primary Care Provider [phone] Encounter Details Date Type Department Care Team [...] How often do you attend chur or jainism services? More than 4 times [...] and heating? Not hard at all 08/17/2023 [facility] - Occupational Stress Questionnaire Answer Date [...] a assisted (including now)? No 08/17/2023 Comments No Sex [...] EDT Office Visit [facility] [address] [place] [phone] Cindy Goins, PA [address] [place] [address] 01/08/2025 8:30 AM EDT Office Visit [facility] [address] [place] [phone] Cindy Goins, PA [address] [place] [address] 02/21/2025 9:00 AM EDT Office Visit [facility] [address] [place] [address] Jermain Davis MD [address] [place] [phone] documented as of this encounter Visit Diagnoses Not on filedocumented in this encounter Care Teams Cnc Milling Machinist Relationship Specialty Start Date End Date Jermain Davis MD [address] [place] [phone] PCP - General Family Medicine 06/05/23 documented as of this encounter
--- OUTSIDE RECORDS SUMMARY | 2024-11-27 06:21 | XMS_ITS | CCD ---
Author Organization [facility] Care Team Providers Care Substitute Teacher Name Role Phone DR JERMAIN SARABIA Admitting Unavailable NADERER, DR JERMAIN Gonzalez Attending Unavailable NADERER, DR JERMAIN Gonzalez Primary Care Unavailable NADERER, DR JERMAIN Gonzalez Consulting Unavailable Ryan SMITH, Jermain Primary Care Provider DO Vineet Nieto Attending Provider Vineet Nieto Attending Unavailable Gerson, Vineet Admitting [...] Active metoprolol tartrate 25 mg oral tablet (2 sources) beta-Adrenergic Otto Start: 11-20-2024 take 1 tablet by mouth in the morning metoprolol tartrate (Lopressor) 25 MG tablet Indications: Palpitation Take 1 tablet (25 mg) by mouth in the morning and 1 tablet (25 mg) before bedtime. 60 tablet 3 11/20/2024 Active polysaccharide iron complex 391 mg oral capsule (20 sources) Start: 04-18-2024 End: 08-20-2024 take 1 [...] [Acute stress reaction] Onset: 08-17-2023 08-17-2023 Chronic Deficiency and other anemia (1 source) Iron [...] unspecified headache type] 09-09-2024 Episodic Menopausal disorders (6 sources) Perimenopausal state; Translations: [Menopausal and female [...] than malignant neoplasm] 02-26-2024 Episodic Other aftercare (10 sources) Long-term current use of drug therapy; Translations: [Other long term care social worker (current) drug therapy] Onset: 09-05-2024 09-05-2024 Episodic [...] Problem Date Documented Date Episodic/Chronic Cardiac dysrhythmias (20 sources) Palpitations; Translations: [Palpitations] Onset: 01-17-2024 02-20-2024 Episodic Other non-traumatic joint disorders (20 sources) Pain [...] Test Name Value Interpretation Reference Range Facility ALL CBC WITH AUTO DIFFon BASOPHILS ABSOLUTE AUTO 0 [facility] Basophils/100 WBC (Bld) 0.7 % 0.2 - 2.0 % [facility] Eosinophils/100 WBC (Bld) 0.9 % 0.9 - 7.0 % [facility] Erythrocyte distribution width (RBC) [Ratio] 15.9 % High 11.0 - 15.0 % [facility] Hematocrit (Bld) [Volume fraction] 30.9 % Low 36.0 - 48.0 % [facility] Hemoglobin (Bld) [Mass/Vol] 9.6 g/dL Low 12.0 - 16.0 g/dL [facility] IMMATURE GRANULOCYTES ABS AUTO 0.01 [facility] Immature granulocytes/100 WBC (Bld) 0.2 % 0.0 - 0.5 % [facility] Interpretation and review of laboratory results Abnormal [facility] LYMPHOCYTES ABSOLUTE AUTO 1.4 [facility] Lymphocytes/100 WBC (Bld) 24.4 % 20.5 - 60.0 % [facility] MCH (RBC) [Entitic mass] 21.9 pg Low 26.7 - 34.0 pg [facility] MCHC (RBC) [Mass/Vol] 31.1 g/dL 29.9 - 35.2 g/dL [facility] MCV (RBC) [Entitic vol] 70.5 fL Low 81.0 - 99.0 fL [facility] MONOCYTES ABSOLUTE AUTO 0.3 [facility] Monocytes/100 WBC (Bld) 5.4 % 1.7 - 12.0 % [facility] NEUTROPHILS ABSOLUTE AUTO 3.8 [facility] Neutrophils/100 WBC (Bld) 68.4 % 43.0 - 75.0 % [facility] Platelet mean volume (Bld) [Entitic vol] 10.9 fL 9.5 - 13.5 fL [facility] TBH EO # 0.1 [facility] PLT 289 [facility] RBC 4.38 [facility] WBC 5.5 [facility] BI US BREAST LIMITED RIGHTon 08-27-2024 BI [...] WITH AUTO DIFFon BASOPHILS ABSOLUTE AUTO 0.0 [facility] Basophils/100 WBC (Bld) 0.6 % 0.2 - 2.0 % [facility] Eosinophils/100 WBC (Bld) 3.7 % 0.9 - 7.0 % [facility] Erythrocyte distribution width (RBC) [Ratio] 12.7 % 11.0 - 15.0 % [facility] Hematocrit (Bld) [Volume fraction] 34.1 % Low 36.0 - 48.0 % [facility] Hemoglobin (Bld) [Mass/Vol] 10.9 g/dL Low 12.0 - 16.0 g/dL [facility] IMMATURE GRANULOCYTES ABS AUTO 0.01 [facility] Immature granulocytes/100 WBC (Bld) 0.2 % 0.0 - 0.5 % [facility] Interpretation and review of laboratory results Abnormal [facility] LYMPHOCYTES ABSOLUTE AUTO 1.6 [facility] Lymphocytes/100 WBC (Bld) 29.2 % 20.5 - 60.0 % [facility] MCH (RBC) [Entitic mass] 25.6 pg Low 26.7 - 34.0 pg [facility] MCHC (RBC) [Mass/Vol] 32.0 g/dL 29.9 - 35.2 g/dL [facility] MCV (RBC) [Entitic vol] 80.0 fL Low 81.0 - 99.0 fL [facility] MONOCYTES ABSOLUTE AUTO 0.4 [facility] Monocytes/100 WBC (Bld) 7.5 % 1.7 - 12.0 % [facility] NEUTROPHILS ABSOLUTE AUTO 3.2 [facility] Neutrophils/100 WBC (Bld) 58.8 % 43.0 - 75.0 % [facility] Platelet mean volume (Bld) [Entitic vol] 9.8 fL 9.5 - 13.5 fL [facility] TBH EO # 0.2 [facility] PLT 243 [facility] RBC 4.26 [facility] TB WBC 5.4 [facility] BASIC METABOLIC PANLon 01-16 Anion gap [Moles/Vol] 8 mmol/L Normal 5-[address] [facility] Comment on above: Performed By: #### C BCA, THYR, BMP #### [facility] ([id number]) [address] [address] [place] [address] Calcium [Mass/Vol] 9.3 mg/dL Normal 8.5-10.5 [facility] Comment on above: Performed By: #### C BCA, THYR, BMP #### [facility] ([id number]) [address] [facility] [address] [place] [address] Chloride [Moles/Vol] 103 mmol/L Normal 98-[address] [facility] Comment on above: Performed By: #### C BCA, THYR, BMP #### [facility] ([id number]) [address], [address] [place] [address] CO2 [Moles/Vol] 28 mmol/L Normal 22-[address] [facility] Comment on above: Performed By: #### C BCA, THYR, BMP #### [facility] ([id number]) [address] [address] [place] [address] Creatinine [Mass/Vol] 0.66 mg/dL Normal 0.40-1.[address] [facility] Comment on above: Result Comment: METH OD TRACEABLE TO IDMS STANDARD Performed By: #### C BCA, THYR, BMP #### [facility] ([id number]) [address] [address] [place] [address] eGFR (CKD-EPI) NON-RACE DEPENDENT >90 Normal >[address] [facility] Comment on above: Result Comment: Reported eGFR is based on the CKD-EPI 2020 equation that does not use a race coefficient. Performed By: #### C BCA, THYR, BMP #### [facility] ([id number]) [address], [address] [place] [address] Glucose [Mass/Vol] 86 mg/dL Normal 65-99 [facility] Comment on above: Performed By: #### C BCA, THYR, BMP #### [facility] ([id number]) [address], [address] [place] [address] Potassium [Moles/Vol] 4.5 mmol/L Normal 3.5-5.[address] [facility] Comment on above: Performed By: #### C DREW THYR, BMP #### [facility] ([id number]) [address], [address] [place] [address] Sodium [Moles/Vol] 139 mmol/L Normal 134-146 [facility] Comment on above: Performed By: #### C DREW THYR, BMP #### [facility] ([id number]) [address], [address] [place] [address] Urea nitrogen [Mass/Vol] 16 mg/dL Normal 5-[address] [facility] Comment on above: Performed By: #### C DREW THYR, BMP #### [facility] ([id number]) [address], [address] [place] [address] CBC AND AUTO DIFFon 01-17-20 24 ABSOLUTE BASOPHIL 0.0 X10E9/L Normal 0.0-0.2 [facility] Comment on above: Performed By: #### C DREW THYR, BMP #### [facility] ([id number]) [address], [address] [place] [address] ABSOLUTE NEUTROPHIL 3.6 X10E9/L Normal 1.5-6.6 [facility] Comment on above: Performed By: #### C BCA, THYR, BMP #### [facility] ([id number]) [address], [address] [place] [address] Basophils/100 WBC (Bld) 0.6 % Normal [facility] Comment on above: Performed By: #### C DREW THYNghia, BMP #### [facility] ([id number]) [address], [address] [place] [address] Eosinophils (Bld) [#/Vol] 0.1 10*3/uL Normal 0.0-0.[address] [facility] Comment on above: Performed By: #### C DREW THYR, BMP #### [facility] ([id number]) [address] [facility] [address] [place] [address] Eosinophils/100 WBC (Bld) 2.2 % Normal [facility] Comment on above: Performed By: #### C DREW THYR, BMP #### [facility] ([id number]) [address], [address] [place] [address] Erythrocyte distribution width (RBC) [Ratio] 14.4 % Normal 11.5-15.[address] [facility] Comment on above: Performed By: #### C DREW THYNghia, BMP #### [facility] ([id number]) [address] [facility] [address] [place] [address] Hematocrit (Bld) [Volume fraction] 35.0 % Normal 35-[address] [facility] Comment on above: Performed By: #### C DREW THYR, BMP #### [facility] ([id number]) [address] [facility] [address] [place] [address] Hemoglobin (Bld) [Mass/Vol] 12.0 g/dL Normal 11.7-15.[address] [facility] Comment on above: Performed By: #### C DREW THYR, BMP #### [facility] ([id number]) [address] [facility] [address] [place] [address] Lymphocytes (Bld) [#/Vol] 1.9 10*3/uL Normal 1.0-3.[address] [facility] Comment on above: Performed By: #### C BCA, THYR, BMP #### [facility] ([id number]) [address] [address] [place] [address] Lymphocytes/100 WBC (Bld) 31.0 % Normal [facility] Comment on above: Performed By: #### C BCA, THYR, BMP #### [facility] ([id number]) [address], [address] [place] [address] MCH (RBC) [Entitic mass] 27.3 pg Normal 27-[address] [facility] Comment on above: Performed By: #### C BCA, THYR, BMP #### [facility] ([id number]) [address] [address] [place] [address] MCHC (RBC) [Mass/Vol] 34.1 g/dL Normal 32-[address] [facility] Comment on above: Performed By: #### C BCA, THYR, BMP #### [facility] ([id number]) [address] [address] [place] [address] MCV (RBC) [Entitic vol] 80 fL Normal 80-[address] [facility] Comment on above: Performed By: #### C BCA, THYR, BMP #### [facility] ([id number]) [address], [address] [place] [address] Monocytes (Bld) [#/Vol] 0.4 10*3/uL Normal 0-0.[address] [facility] Comment on above: Performed By: #### C BCA, THYR, BMP #### [facility] ([id number]) [address], [address] [place] [address] Monocytes/100 WBC (Bld) 6.5 % Normal [facility] Comment on above: Performed By: #### C BCA, THYR, BMP #### [facility] ([id number]) [address], [address] [place] [address] Neutrophils/100 WBC (Bld) 59.7 % Normal [facility] Comment on above: Performed By: #### C DREW THYR, BMP #### [facility] ([id number]) [address] [facility] [address] [place] [address] Platelet mean volume (Bld) [Entitic vol] 9.1 fL Normal 7-[address] [facility] Comment on above: Performed By: #### C DREW THYR, BMP #### [facility] ([id number]) [address] [facility] [address] [place] [address] Platelets (Bld) [#/Vol] 313 10*3/uL Normal 150-[address] [facility] Comment on above: Performed By: #### C DREW THYR, BMP #### [facility] ([id number]) [address], [address] [place] [address] RBC COUNT 4.39 X10E12/L Normal 3.80-5.[address] [facility] Comment on above: Performed By: #### C DREW THYR, BMP #### [facility] ([id number]) [address] [address] [place] [address] WBC (Bld) [#/Vol] 6.1 10*3/uL Normal 4.0-11.0 [facility] Comment on above: Performed By: #### C DREW THYR, BMP #### [facility] ([id number]) [address] [address] [place] [address] THYROID PROFILEon 01-17-2024 Free T4 [Mass/Vol] 0.96 ng/dL Normal 0.61-1.60 [facility] Comment on above: Performed By: #### C RDEW THYR, BMP #### [facility] ([id number]) [address] [address] [place] [address] TSH 0.60 uIU/mL Normal 0.49-4.[address] [facility] Comment on above: Performed By: #### C BCA, THYR, BMP #### [facility] ([id number]) [address], [address] [place] [address] Pathology Request for Lab Co rpon 12-22-2023 Pathology Request for Lab Radha Normal [facility] Comment on above: Order Comment: PATHO LOGY PARALEGAL SPECIALIST SPECIMEN Result Comment: See report. Scanned copy available in EMR. PERFORMED BY: [place] [address] PATHOLOGIST [employer] WENDY FERRARO M.D. Performed By: #### P ATH TO [facility] #### [address] CBC AND AUTO DIFFon 08-18-19 24 ABSOLUTE BASOPHIL 0.0 X10E9/L Normal 0.0-0.2 [facility] Comment on above: Performed By: #### C BCA #### [facility] ([id number]) [address], [address] [place] [address] ABSOLUTE NEUTROPHIL 3.5 X10E9/L Normal 1.5-6.6 [facility] Comment on above: Performed By: #### C BCA #### [facility] ([id number]) [address], [address] [place] [address] Basophils/100 WBC (Bld) 0.9 % Normal [facility] Comment on above: Performed By: #### C BCA #### [facility] ([id number]) [address], [address] [place] [address] Eosinophils (Bld) [#/Vol] 0.1 10*3/uL Normal 0.0-0.[address] [facility] Comment on above: Performed By: #### C BCA #### [facility] ([id number]) [address], [address] [place] [address] Eosinophils/100 WBC (Bld) 1.7 % Normal [facility] Comment on above: Performed By: #### C BCA #### [facility] ([id number]) [address], [address] [place] [address] Erythrocyte distribution width (RBC) [Ratio] 17.5 % High 11.5-15.[address] [facility] Comment on above: Performed By: #### C BCA #### [facility] ([id number]) [address], [address] [place] [address] Hematocrit (Bld) [Volume fraction] 27.0 % Low 35-[address] [facility] Comment on above: Performed By: #### C BCA #### [facility] ([id number]) [address], [address] [place] [address] Hemoglobin (Bld) [Mass/Vol] 8.0 g/dL Low 11.7-15.[address] [facility] Comment on above: Performed By: #### C BCA #### [facility] ([id number]) [address], [address] [place] [address] Lymphocytes (Bld) [#/Vol] 1.1 10*3/uL Normal 1.0-3.[address] [facility] Comment on above: Performed By: #### C BCA #### [facility] ([id number]) [address], [address] [place] [address] Lymphocytes/100 WBC (Bld) 21.3 % Normal [facility] Comment on above: Performed By: #### C BCA #### [facility] ([id number]) [address], [address] [place] [address] MCH (RBC) [Entitic mass] 18.7 pg Low 27-[address] [facility] Comment on above: Performed By: #### C BCA #### [facility] ([id number]) [address], [address] [place] [address] MCHC (RBC) [Mass/Vol] 29.6 g/dL Low 32-[address] [facility] Comment on above: Performed By: #### C BCA #### [facility] ([id number]) [address], [address] [place] [address] MCV (RBC) [Entitic vol] 63 fL Low 80-[address] [facility] Comment on above: Performed By: #### C BCA #### [facility] ([id number]) [address], [address] [place] [address] Monocytes (Bld) [#/Vol] 0.3 10*3/uL Normal 0-0.[address] [facility] Comment on above: Performed By: #### C BCA #### [facility] ([id number]) [address], [address] [place] [address] Monocytes/100 WBC (Bld) 6.5 % Normal [facility] Comment on above: Performed By: #### C BCA #### [facility] ([id number]) [address], [address] [place] [address] Neutrophils/100 WBC (Bld) 69.6 % Normal [facility] Comment on above: Performed By: #### C BCA #### [facility] ([id number]) [address], [address] [place] [address] OVALOCYTE 1+ Abnormal NONE [facility] Comment on above: Performed By: #### C BCA #### [facility] ([id number]) [address], [address] [place] [address] Platelet mean volume (Bld) [Entitic vol] 8.7 fL Normal 7-[address] [facility] Comment on above: Performed By: #### C BCA #### [facility] ([id number]) [address], [address] [place] [address] Platelets (Bld) [#/Vol] 237 10*3/uL Normal 150-[address] [facility] Comment on above: Performed By: #### C BCA #### [facility] ([id number]) [address], [address] [place] [address] POLYCHROMASIA 1+ Abnormal NONE [facility] Comment on above: Performed By: #### C BCA #### [facility] ([id number]) [address], [address] [place] [address] RBC COUNT 4.29 X10E12/L Normal 3.80-5.[address] [facility] Comment on above: Performed By: #### C BCA #### [facility] ([id number]) [address] [place] [address], [address] [place] [address] WBC (Bld) [#/Vol] 5.1 10*3/uL Normal 4.0-11.0 [facility] Comment on above: Performed By: #### C BCA #### [facility] ([id number]) [address] [place] [address] CBC AUTO DIFFon 08-03-2021 BASO # 0.0 103/ul Normal 0.0-0.1 [facility] Comment on above: Performed By: #### C BC #### [facility] [address] [address] [address] Dee Tafoya Basophils/100 WBC (Bld) 0.5 % Normal 0.2-2.0 [facility] Comment on above: Performed By: #### C BC #### [facility] [address] [address] [address] Dee Tafoya EO # 0.1 103/ul Normal 0.0-0.7 [facility] Comment on above: Performed By: #### C BC #### [facility] [address] [address] [address] Dee Tafoya Eosinophils/100 WBC (Bld) 0.9 % Normal 0.9-7.0 [facility] Comment on above: Performed By: #### C BC #### [facility] [address] [place] [address] Dr. Dee Tafoya Erythrocyte distribution width (RBC) [Ratio] 15.9 % Critically high 11.0-15.0 [facility] Comment on above: Performed By: #### C BC #### [facility] [address] [place] [address] Dr. Dee Tafoya Hematocrit (Bld) [Volume fraction] 30.0 % Critically low 36.0-48.0 [facility] Comment on above: Performed By: #### C BC #### [facility] [address] [place] [address] Dr. Dee Tafoya Hemoglobin (Bld) [Mass/Vol] 8.7 g/dL Critically low 12.0-16.0 [facility] Comment on above: Performed By: #### C BC #### [facility] [address] [place] [address] Dr. Dee Tafoya IG # 0.02 10e3/ul Normal 0.00-0.03 [facility] Comment on above: Performed By: #### C BC #### [facility] [address] [place] [address] Dr. Dee Tafoya IG % 0.3 % Normal 0.0-0.5 [facility] Comment on above: Performed By: #### C BC #### [facility] [address] [place] [address] Dr. Dee Tafoya LYMPH # 1.1 103/ul Critically low 1.2-3.8 [facility] Comment on above: Performed By: #### C BC #### [facility] [address] [place] [address] Dr. Dee Tafoya Lymphocytes/100 WBC (Bld) 16.8 % Critically low 20.5-60.0 [facility] Comment on above: Performed By: #### C BC #### [facility] [address] [place] [address] Dr. Dee Tafoya MANUAL DIFF REQ NO Normal [facility] Comment on above: Performed By: #### C BC #### [facility] [address] [place] [address] Dr. Dee Tafoya MCH (RBC) [Entitic mass] 20.3 pg Critically low 26.7-34.0 [facility] Comment on above: Performed By: #### C BC #### [facility] [address] [place] [address] Dr. Dee Tafoya MCHC (RBC) [Mass/Vol] 29.0 g/dL Critically low 29.9-35.2 [facility] Comment on above: Performed By: #### C BC #### [facility] [address] [place] [address] Dr. Dee Tafoya MCV (RBC) [Entitic vol] 69.9 fL Critically low 81.0-99.0 [facility] Comment on above: Performed By: #### C BC #### [facility] [address] [place] [address] Dr. Dee Tafoya MONO # 0.3 103/ul Normal 0.3-0.8 [facility] Comment on above: Performed By: #### C BC #### [facility] [address] [place] [address] Dr. Dee Tafoya Monocytes/100 WBC (Bld) 5.2 % Normal 1.7-12.0 [facility] Comment on above: Performed By: #### C BC #### [facility] [address] [place] [address] Dr. Dee Tafoya NEUT # 4.9 103/ul Normal 1.4-6.5 [facility] Comment on above: Performed By: #### C BC #### [facility] [address] [place] [address] Dr. Dee Tafoya Neutrophils/100 WBC (Bld) 76.3 % Critically high 43.0-75.0 [facility] Comment on above: Performed By: #### C BC #### [facility] [address] [place] [address] Dr. Dee Tafoya Platelet mean volume (Bld) [Entitic vol] 10.2 fL Normal 9.5-13.5 [facility] Comment on above: Performed By: #### C BC #### [facility] [address] [address] [address] Dee Tafoya PLT 267 103/ul Normal 150-450 [facility] Comment on above: Performed By: #### C BC #### [facility] [address] [address] [address] Dee Tafoya RBC 4.29 106/ul Normal 4.20-5.40 [facility] Comment on above: Performed By: #### C BC #### [facility] [address] [address] [address] Dee Tafoya WBC 6.4 103/ul Normal 4.0-11.0 [facility] Comment on above: Performed By: #### C BC #### [facility] [address] [place] [address] Dr. Dee Tafoya GLYCOHEMOGLOBIN A1Con 2021 ADA RECOMMENDATION ADA THERAPEUTIC TARG ET 6.0 - 7.0 ACTION SUGGESTED > 7.0 Normal [facility] Comment on above: Performed By: #### A 1C #### [facility] [address] [place] [address] Dr. Dee Tafoya Glucose [Mass/Vol] 100 mg/dL Normal [facility] Comment on above: Performed By: #### A 1C #### [facility] [address] [place] [address] Dr. Dee Tafoya HbA1c (Bld) [Mass fraction] 5.1 % Normal <=6.0 [facility] Comment on above: Performed By: #### A 1C #### [facility] [address] [place] [address] Dr. Dee Tafoya LIPID PROFILEon 08-03-2021 CHOL-HDL RATIO NORM SEE BELOW Normal [facility] Comment on above: Result Comment: 3.3 - 4.4 LOW RISK 4.4 - 7.1 AVERAGE RISK 7.1 - 11.0 MODERATE RISK >11.0 HIGH RISK Performed By: #### L IPID, LIVER, TSH, BMP #### [facility] [address] [place] [address] Dr. Dee Tafoya Cholesterol [Mass/Vol] 151 mg/dL Normal <=200 [facility] Comment on above: Performed By: #### L IPID, LIVER, TSH, BMP #### [facility] [address] [address] [address] Dee Tafoya Cholesterol in HDL [Mass/Vol] 43 mg/dL Normal 40-60 [facility] Comment on above: Performed By: #### L IPID, LIVER, TSH, BMP #### [facility] [address] [address] [address] Dee Tafoya Cholesterol in LDL [Mass/Vol] 90.2 mg/dL Normal [facility] Comment on above: Performed By: #### L IPID, LIVER, TSH, BMP #### [facility] [address] [address] [address] Dee Tafoya Cholesterol.total/C holesterol in HDL [Mass ratio] 3.5 {ratio} Normal [facility] Comment on above: Performed By: #### L IPID, LIVER, TSH, BMP #### [facility] [address] [address] [address] Dee Tafoya HDL NORMAL > or = 60 mg/dl - LO W CARDIOVASCULAR RISK <40 mg/dl - HIGH CARDIOVASCULAR RISK Normal [facility] Comment on above: Performed By: #### L IPID, LIVER, TSH, BMP #### [facility] [address] [address] [address] Dee Tafoya LDL CALC NORMAL SEE BELOW Normal [facility] Comment on above: Result Comment: <100 mg/dl OPTIMAL 100 - 129 mg/dl NEAR OR ABOVE OPTIMAL 130 - 159 mg/dl BORDERLINE HIGH 160 - 189 mg/dl HIGH >190 mg/dl VERY HIGH Performed By: #### L IPID, LIVER, TSH, BMP #### [facility] [address] [address] [address] Dee Tafoya Triglyceride [Mass/Vol] 89 mg/dL Normal <=150 [facility] Comment on above: Performed By: #### L IPID, LIVER, TSH, BMP #### [facility] [address] [address] [address] Dee Tafoya VLDL CALC 17.8 mg/dL Normal [facility] Comment on above: Performed By: #### L IPID, LIVER, TSH, BMP #### [facility] [address] [address] [address] Dee Tafoya LIVER PROFILEon 08-03-2021 Albumin [Mass/Vol] 4.0 g/dL Normal 3.4-5.0 [facility] Comment on above: Performed By: #### L IPID, LIVER, TSH, BMP #### [facility] [address] [place] [address] Dr. Dee Tafoya Albumin/Globulin [Mass ratio] 1.1 {ratio} Normal [facility] Comment on above: Performed By: #### L IPID, LIVER, TSH, BMP #### [facility] [address] [place] [address] Dr. Dee Tafoya ALP [Catalytic activity/Vol] 65 U/L Normal 46-116 [facility] Comment on above: Performed By: #### L IPID, LIVER, TSH, BMP #### [facility] [address] [place] [address] Dr. Dee Tafoya ALT [Catalytic activity/Vol] 19 U/L Normal 14-59 [facility] Comment on above: Performed By: #### L IPID, LIVER, TSH, BMP #### [facility] [address] [place] [address] Dr. Dee Tafoya AST [Catalytic activity/Vol] 14 U/L Critically low 15-37 [facility] Comment on above: Performed By: #### L IPID, LIVER, TSH, BMP #### [facility] [address] [place] [address] Dr. Dee Tafoya BILI, CONJUGATED 0.1 mg/dL Normal 0.0-0.3 [facility] Comment on above: Performed By: #### L IPID, LIVER, TSH, BMP #### [facility] [address] [address] [address] Dee Tafoya Bilirubin [Mass/Vol] 0.5 mg/dL Normal 0.2-1.3 [facility] Comment on above: Performed By: #### L IPID, LIVER, TSH, BMP #### [facility] [address] [address] [address] Dee Tafoya Globulin (S) [Mass/Vol] 3.6 g/dL Normal [facility] Comment on above: Performed By: #### L IPID, LIVER, TSH, BMP #### [facility] [address] [address] [address] Dee Tafoya Protein [Mass/Vol] 7.6 g/dL Normal 6.1-8.2 [facility] Comment on above: Performed By: #### L IPID, LIVER, TSH, BMP #### [facility] [address] [address] [address] Dee Tafoya PROF CHEM 8 (BAS METB)on Anion gap [Moles/Vol] 13.3 mmol/L Normal [facility] Comment on above: Performed By: #### L IPID, LIVER, TSH, BMP #### [facility] [address] [address] [address] Dee Tafoya Calcium [Mass/Vol] 8.3 mg/dL Critically low 8.5-10.1 [facility] Comment on above: Performed By: #### L IPID, LIVER, TSH, BMP #### [facility] [address] [place] [address] Dr. Dee Tafoya Chloride [Moles/Vol] 105 mmol/L Normal 98-107 [facility] Comment on above: Performed By: #### L IPID, LIVER, TSH, BMP #### [facility] [address] [place] [address] Dr. Dee Tafoya CO2 [Moles/Vol] 24.8 mmol/L Normal 22.0-30.0 [facility] Comment on above: Performed By: #### L IPID, LIVER, TSH, BMP #### [facility] [address] [place] [address] Dr. Dee Tafoya Creatinine [Mass/Vol] 0.67 mg/dL Normal 0.52-1.04 [facility] Comment on above: Performed By: #### L IPID, LIVER, TSH, BMP #### [facility] [address] [address] [address] Dee Tafoya EGFR-AF ZAMBIAN >60 Normal >=60 [facility] Comment on above: Performed By: #### L IPID, LIVER, TSH, BMP #### [facility] [address] [address] [address] Dee Tafoya EGFR-NON AF ZAMBIAN >60 Normal >=60 [facility] Comment on above: Performed By: #### L IPID, LIVER, TSH, BMP #### [facility] [address] [address] [address] Dee Tafoya Glucose [Mass/Vol] 95 mg/dL Normal 74-106 [facility] Comment on above: Performed By: #### L IPID, LIVER, TSH, BMP #### [facility] [address] [place] [address] Dr. Dee Tafoya Potassium [Moles/Vol] 4.1 mmol/L Normal 3.4-5.0 [facility] Comment on above: Performed By: #### L IPID, LIVER, TSH, BMP #### [facility] [address] [address] [address] Dee Tafoya Sodium [Moles/Vol] 139 mmol/L Normal 137-[address] [facility] Comment on above: Performed By: #### L IPID, LIVER, TSH, BMP #### [facility] [address] [address] [address] Dee Tafoya Urea nitrogen [Mass/Vol] 12.0 mg/dL Normal 7.0-18.0 [facility] Comment on above: Performed By: #### L IPID, LIVER, TSH, BMP #### [facility] [address] [address] [address] Dee Tafoya Urea nitrogen/Creatinine [Mass ratio] 17.9 mg/mg Normal [facility] Comment on above: Performed By: #### L IPID, LIVER, TSH, BMP #### [facility] [address] [address] [address] Dee Tafoya TSHon 08-03-2021 TSH 0.679 uIU/mL Normal 0.470-4.680 [facility] Comment on above: Performed By: #### L IPID, LIVER, TSH, BMP #### [facility] [address] [place], [place] [address] Dr. Dee Tafoya TSH RANGE SEE BELOW Normal [facility] Comment on above: Result Comment: <0.3 4 UIU/ml HYPERTHYROID 0.34-5.60 UIU/ml EUTHYROID >5.60 UIU/ml HYPOTHYROID Performed By: #### L IPID, LIVER, TSH, BMP #### [facility] [address] [place], [place] [address] Dr. Dee Tafoya Vital Signs Date Time Vital Sign Value Performing Clinician Faci lity 11-19-2024 09:35-0400 Body height 162.6 cm Jermain Sarabia MD Work Phone: [facility] 11-19-2024 09:35-0400 Body mass index (BMI) [Ratio] 30.38 kg/m2 Jermain Sarabia MD Work Phone: [facility] 11-19-2024 09:35-0400 Body temperature 98.2 [degF] Jermain Sarabia MD Work Phone: [facility] 11-19-2024 09:35-0400 Body weight 80.29 kg Jermain Sarabia MD Work Phone: [facility] 11-19-2024 09:35-0400 Diastolic blood pressure 76 mm[Hg] Jermain Sarabia MD Work Phone: [facility] 11-19-2024 09:35-0400 Heart rate 36 /min Jermain Sarabia MD Work Phone: [facility] 11-19-2024 09:35-0400 Respiratory rate 22 /min Jermain Sarabia MD Work Phone: [facility] 11-19-2024 09:35-0400 SaO2% (BldA) [Mass fraction] 98 % Jermain Sarabia MD Work Phone: [facility] 11-19-2024 09:35-0400 Systolic blood pressure 134 mm[Hg] Jermain Sarabia MD Work Phone: [facility] 10-29-2024 08:53-0400 Body mass index (BMI) [Ratio] 30.42 kg/m2 Vineet Gerson DO Work Phone: [facility] 10-29-2024 08:53-0400 Body weight 80.4 kg Vineet Gerson DO Work Phone: [facility] 10-29-2024 08:53-0400 Diastolic blood pressure 90 mm[Hg] Vineet Gerson DO Work Phone: [facility] 10-29-2024 08:53-0400 Systolic blood pressure 130 mm[Hg] Vineet Gerson DO Work Phone: [facility] 09-09-2024 15:17-0400 Body mass index (BMI) [Ratio] 29.83 kg/m2 Vineet Gerson DO Work Phone: [facility] 09-09-2024 15:17-0400 Body weight 78.83 kg Vineet Gerson DO Work Phone: [facility] 09-09-2024 15:17-0400 Diastolic blood pressure 68 mm[Hg] Vineet Gerson DO Work Phone: [facility] 09-09-2024 15:17-0400 Systolic blood pressure 112 mm[Hg] Vineet Gerson DO Work Phone: [facility] 08-20-2024 09:11-0400 Body height 162.6 cm Jermain Sarabia MD Work Phone: [facility] 08-20-2024 09:11-0400 Body mass index (BMI) [Ratio] 29.87 kg/m2 Jermain Sarabia MD Work Phone: [facility] 08-20-2024 09:11-0400 Body temperature 96.6 [degF] Jermain Sarabia MD Work Phone: [facility] 08-20-2024 09:11-0400 Body weight 78.93 kg Jermain Sarabia MD Work Phone: [facility] 08-20-2024 09:11-0400 Diastolic blood pressure 104 mm[Hg] Jermain Sarabia MD Work Phone: [facility] 08-20-2024 09:11-0400 Heart rate 93 /min Jermain Sarabia MD Work Phone: [facility] 08-20-2024 09:11-0400 Respiratory rate 20 /min Jermain Sarabia MD Work Phone: [facility] 08-20-2024 09:11-0400 SaO2% (BldA) [Mass fraction] 99 % Jermain Sarabia MD Work Phone: [facility] 08-20-2024 09:11-0400 Systolic blood pressure 158 mm[Hg] Jermain Sarabia MD Work Phone: [facility] 02-26-2024 09:02-0400 Body mass index (BMI) [Ratio] 31.03 kg/m2 Cindy JACKSON Work Phone: [facility] 02-26-2024 09:02-0400 Body weight 82.01 kg Cindy JACKSON Work Phone: [facility] 02-26-2024 09:02-0400 Diastolic blood pressure 80 mm[Hg] Cindy JACKSON Work Phone: [facility] 02-26-2024 09:02-0400 Systolic blood pressure 122 mm[Hg] Cindy JACKSON Work Phone: [facility] 02-20-2024 09:48-0400 Body height 162.6 cm Jermain Sarabia MD Work Phone: [facility] 02-20-2024 09:48-0400 Body mass index (BMI) [Ratio] 30.73 kg/m2 Jermain Sarabia MD Work Phone: [facility] 02-20-2024 09:48-0400 Body temperature 98.4 [degF] Jermain Sarabia MD Work Phone: [facility] 02-20-2024 09:48-0400 Body weight 81.19 kg Jermain Sarabia MD Work Phone: [facility] 02-20-2024 09:48-0400 Diastolic blood pressure 80 mm[Hg] Jermain Sarabia MD Work Phone: [facility] 02-20-2024 09:48-0400 Heart rate 89 /min Jermain Sarabia MD Work Phone: [facility] 02-20-2024 09:48-0400 Respiratory rate 22 /min Jermain Sarabia MD Work Phone: [facility] 02-20-2024 09:48-0400 SaO2% (BldA) [Mass fraction] 99 % Jermain Sarabia MD Work Phone: [facility] 02-20-2024 09:48-0400 Systolic blood pressure 120 mm[Hg] Jermain Sarabia MD Work Phone: [facility] 01-17-2024 11:10-0400 Body height 162.6 cm Jermain Sarabia MD Work Phone: [facility] 01-17-2024 11:10-0400 Body mass index (BMI) [Ratio] 30.38 kg/m2 Jermain Sarabia MD Work Phone: [facility] 01-17-2024 11:10-0400 Body temperature 97.81 [degF] Jermain Sarabia MD Work Phone: [facility] 01-17-2024 11:10-0400 Body weight 80.29 kg Jermain Sarabia MD Work Phone: [facility] 01-17-2024 11:10-0400 Diastolic blood pressure 80 mm[Hg] Jermain Sarabia MD Work Phone: [facility] 01-17-2024 11:10-0400 Heart rate 100 /min Jermain Sarabia MD Work Phone: [facility] 01-17-2024 11:10-0400 Respiratory rate 20 /min Jermain Sarabia MD Work Phone: [facility] 01-17-2024 11:10-0400 SaO2% (BldA) [Mass fraction] 99 % Jermain Sarabia MD Work Phone: [facility] 01-17-2024 11:10-0400 Systolic blood pressure 144 mm[Hg] Jermain Sarabia MD Work Phone: [facility] 01-10-2024 13:20-0400 Body mass index (BMI) [Ratio] 30.23 kg/m2 Vineet Gerson DO Work Phone: [facility] 01-10-2024 13:20-0400 Body weight 79.89 kg Vineet Gerson DO Work Phone: [facility] 01-10-2024 13:20-0400 Diastolic blood pressure 72 mm[Hg] Vineet Gerson DO Work Phone: [facility] 01-10-2024 13:20-0400 Systolic blood pressure 120 mm[Hg] Vineet Gerson DO Work Phone: [facility] Encounters Encounter Date Encounter Type Care Provider Facility Start: 11-25-2024 End: 11-25-2024 Clinisync Result Encounter Generic External Data Provider [facility] External [facility] Unsolicited Start: 11-25-2024 End: 11-25-2024 Clinisync Result Encounter Generic External Data Provider [facility] External [facility] Unsolicited Start: 11-20-2024 End: 11-20-2024 Orders Only Jermain Sarabia MD Work Phone: [facility] Comment on above: Palpitation (Primary Dx) Start: 11-19-2024 End: 11-19-2024 Bamboo flowsheet Jermain Sarabia MD Work Phone: [facility] Start: 11-19-2024 End: 11-19-2024 Bamboo flowsheet Jermain Sarabia MD Work Phone: [facility] Start: 11-19-2024 End: 11-19-2024 Office outpatient visit 15 minutes Jermain Sarabia MD Work Phone: [facility] Comment on above: Benign essential hyp ertension (Primary Dx); Menorrhagia with regular cycle; Perimenopausal Start: 11-19-2024 End: 11-19-2024 ambulatory JERMAIN SARABIA Not Available Start: 10-29-2024 End: 10-29-2024 Bamboo flowsheet Vineet Gerson DO Work Phone: [facility] Start: 10-29-2024 End: 10-29-2024 Bamboo flowsheet Vineet Gerson DO Work Phone: [facility] Start: 10-29-2024 End: 10-29-2024 Office outpatient visit 15 minutes Vineet Gerson DO Work Phone: [facility] Comment on above: Pre-op examination; Dyspareunia in female; Menorrhagia with regular cycle; Pelvic pain; Dysmenorrhea Start: 10-29-2024 End: 10-29-2024 Preprocedural examination done Vineet Gerson DO Work Phone: [facility] Start: 10-29-2024 End: 10-29-2024 ambulatory VINEET GERSON Not Available Start: 09-09-2024 End: 09-09-2024 ambulatory VINEET GERSON Not Available Start: 09-09-2024 End: 09-09-2024 Office outpatient visit 15 minutes Vineet Gerson DO Work Phone: [facility] Comment on above: Menorrhagia with reg ular cycle; Abdominal cramping; Acute nonintractable headache, unspecified headache type; Low serum iron Start: 09-09-2024 End: 09-09-2024 Bamboo flowsheet Vineet Gerson DO Work Phone: [facility] Start: 09-09-2024 End: 09-09-2024 Bamboo flowsheet Vineet Gerson DO Work Phone: [facility] Start: 08-27-2024 End: 08-27-2024 ambulatory JERMAIN [...] Department Unsolicited Start: 01-18-2024 End: 01-18-2024 ambulatory [facility] Start: 01-17-2024 End: 01-17-2024 ambulatory [facility] Start: 01-17-2024 End: 01-17-2024 Bamboo flowsheet [...] 01-10-2024 Office outpatient visit 15 minutes Vineet Nieto DO Work Phone: [facility] Comment on above: Postop check; Pre-op examination; Menorrhagia with regular cycle; Abnormal uterine bleeding (AUB); Pelvic pain in female Start: 01-10-2024 End: 01-10-2024 Preprocedural examination done Vineetabdirahman Langleyo DO Work Phone: [facility] Start: 01-10-2024 End: 01-10-2024 ambulatory VINEET NIETO Not Available Start: 12-26-2023 End: 12-26-2023 ambulatory JERMAIN SARABIA Not Available Start: 12-22-2023 End: 12-22-2023 ambulatory Vineetabdirahman Langleyo [facility] Work Phone: Start: 12-22-2023 End: 12-22-2023 Departed Referred DO Vineet Nieto Work Phone: [facility] Start: 08-18-2023 End: 08-18-2023 ambulatory JERMAIN SARABIA [facility] Start: 07-07-2023 Chart abstracting Daniel sanchez PA Work Phone: [facility] Start: 06-22-2023 Bamboo flowsheet Jyotsna Leilaig ht [employer] Work Phone: [facility] Start: 06-22-2023 Bamboo flowsheet Jyotsna Leilaig ht [employer]ARCH RE[employer] Work Phone: [facility] Start: 06-22-2023 End: 06-22-2023 ambulatory Jyotsna Ward [employer] Work Phone: [facility] Comment on [...] examination without abnormal findings DR JERMAIN SARABIA [facility] Start: 08-03-2021 End: 08-04-[address] JERMAIN SARABIA Facility:[facility] Start: 08-03-2021 End: 08-04-2021 Encounter for general adult medical examination without abnormal findings DR JERMAIN SARABIA Facility:[facility] Procedures Date Procedure Procedure Detail Performing Clinician Start: 11-25-2024 ALL CBC WITH AUTO DIFF Vineet Gerson DO Work Phone: Start: 08-23-2024 Mammography Vineet Fazi o DO Work Phone: Start: 02-09-2024 ALL CBC WITH AUTO DIFF Generic External Data Provider Start: 09-20-2023 Microscopic observat ion [Identifier] in Cervix by Cyto stain Vineet Gerson DO Work Phone: Start: 04-14-2023 Mammography Phani franco PT Work Phone: Plan of Treatment Date Care Activity Detail Author Start: 09-19-2028 Screening for malign ant neoplasm of cervix [facility] Start: 08-23-2025 Screening for malign ant neoplasm of breast Mammogram [facility] Start: 02-21-2025 End: 02-21-2025 Patient encounter procedure 02/21/2025 9:00 AM EDT Office Visit [facility] [address] [place] [address] Jermain Sarabia MD [address] [place] [address] [facility] Start: 01-13-2025 Influenza vaccination [facility] Start: 01-08-2025 End: 01-08-2025 Patient encounter procedure 01/08/2025 8:30 AM EDT Office Visit [facility] [address] [place] [address] Cindy Fox PA [address] [place] [address] [facility] Start: 12-04-2024 End: 12-04-2024 Patient encounter procedure 12/04/2024 9:30 AM EDT Office Visit [facility] [address] [place] [phone] Cindy Fox PA [address] [place] [address] [facility] Start: 11-19-2024 End: 11-19-2024 Patient encounter procedure [facility] Comment on above: Arrived Start: 10-29-2024 End: 10-29-2024 Patient encounter procedure [facility] Comment on above: Pre-op examination; Dyspareunia in female; Menorrhagia with regular cycle; Pelvic pain; Dysmenorrhea Start: 08-20-2024 End: 08-20-2025 Basic metabolic 1998 panel - Serum or Plasma Basic metabolic panel Lab Routine Annual physical exam Expected: 08/20/2024 (Approximate), Expires: 08/20/2025 [facility] Comment on above: Expected: 08/20/2024 (Approximate), Expires: 08/20/2025 Start: 08-20-2024 End: 08-20-2025 CBC W Auto Differential panel - Blood CBC and differential Lab Routine Annual physical exam Expected: 08/20/2024 (Approximate), Expires: 08/20/2025 [facility] Comment on above: Expected: 08/20/2024 (Approximate), Expires: 08/20/2025 Start: 08-20-2024 End: 08-20-2025 Hemoglobin A1c/Hemoglobin.total in Blood Hemoglobin A1c Lab Routine Annual physical exam Expected: 08/20/2024 (Approximate), Expires: 08/20/2025 [facility] Work Phone: Comment on above: Expected: 08/20/2024 (Approximate), Expires: 08/20/2025 Start: 08-20-2024 End: 08-20-2025 Hepatic function 2000 panel - Serum or Plasma Hepatic function panel Lab Routine Annual physical exam Expected: 08/20/2024 (Approximate), Expires: 08/20/2025 [facility] Comment on above: Expected: 08/20/2024 (Approximate), Expires: 08/20/2025 Start: 08-20-2024 End: 08-20-2025 Lipid 1996 panel - Serum or Plasma Lipid panel Lab Routine Annual physical exam Expected: 08/20/2024 (Approximate), Expires: 08/20/2025 [facility] Comment on above: Expected: 08/20/2024 (Approximate), Expires: 08/20/2025 Start: 08-20-2024 End: 10-20-2025 MG Breast - bilateral Screening Bilateral screening mammogram Imaging Routine Breast cancer screening by mammogram Expected: 08/20/2024, Expires: 10/20/2025 [facility] Comment on above: Expected: 08/20/2024 , Expires: 10/20/2025 Start: 08-20-2024 End: 08-20-2025 Thyrotropin [Units/volume] in Serum or Plasma TSH Lab Routine Annual physical exam Expected: 08/20/2024 (Approximate), Expires: 08/20/2025 [facility] Comment on above: Expected: 08/20/2024 (Approximate), Expires: 08/20/2025 Start: 08-20-2024 End: 08-20-2024 Patient encounter procedure [facility] Comment on above: Arrived Start: 04-14-2024 Screening for malign ant neoplasm of breast Mammogram [facility] Start: 02-26-2024 End: 02-26-2024 Patient encounter procedure 02/26/2024 8:40 AM EDT Office Visit [facility] [address] [facility] [place] [phone] Cindy Fox PA [address] [place], [place] [id number] Arrived [facility] Comment on above: Arrived Start: 02-20-2024 End: 02-20-2024 Patient encounter procedure [facility] Comment on above: Arrived Start: 02-09-2024 End: 02-09-2024 Patient encounter procedure 02/09/2024 8:00 AM EDT Procedure Visit [facility] Vineet Nieto, [address] [place] [address] [facility] Start: 01-26-2024 End: 01-26-2024 Patient encounter procedure 01/26/2024 9:15 AM EDT Office Visit [facility] [address] [place] [address] Jermain Sarabia MD [address] [place] [id number] [facility] Start: 01-17-2024 End: 01-16-2025 Basic metabolic 1998 panel - Serum or Plasma Basic metabolic panel Lab Routine Palpitation Expected: 01/17/2024 (Approximate), Expires: 01/16/2025 [facility] Comment on above: Expected: 01/17/2024 (Approximate), Expires: 01/16/2025 Start: 01-17-2024 End: 01-16-2025 CBC W Auto Differential panel - Blood CBC and differential Lab Routine Palpitation Expected: 01/17/2024 (Approximate), Expires: 01/16/2025 [facility] Comment on above: Expected: 01/17/2024 (Approximate), Expires: 01/16/2025 Start: 01-17-2024 End: 01-16-2025 Holter monitor study Holter monitor Imaging Routine Palpitation Expected: 01/17/2024 (Approximate), Expires: 01/16/2025 [facility] Work Phone: Comment on above: Expected: 01/17/2024 (Approximate), Expires: 01/16/2025 Start: 01-17-2024 End: 01-16-2025 Thyrotropin [Units/volume] in Serum or Plasma TSH Lab Routine Palpitation Expected: 01/17/2024 (Approximate), Expires: 01/16/2025 [facility] Comment on above: Expected: 01/17/2024 (Approximate), Expires: 01/16/2025 Start: 01-17-2024 End: 01-16-2025 Thyroxine (T4) free [Mass/volume] in Serum or Plasma T4, free Lab Routine Palpitation Expected: 01/17/2024 (Approximate), Expires: 01/16/2025 [facility] Comment on above: Expected: 01/17/2024 (Approximate), Expires: 01/16/2025 Start: 01-17-2024 End: 01-17-2024 Patient encounter procedure 01/17/2024 11:15 AM EDT Office Visit [facility] [address] [place] [address] Jermain Sarabia MD [address] [place] [id number] Arrived [facility] Comment on above: Arrived Start: 01-14-2024 Influenza vaccination Influenza Vacc ine (#1) [facility] Start: 01-10-2024 End: 01-10-2024 Patient encounter procedure 01/10/2024 1:20 PM EDT Consult [facility] [address] [place] [address] Vineet Nieto DO [address] [place], [place] [id number] Arrived [facility] Comment on above: Arrived Start: 12-22-2023 [facility] Start: 07-07-2023 End: 07-07-2023 Patient encounter procedure 07/07/2023 10:15 AM EST Office Visit [facility] [address] [facility] [address] [place] [id number] Daniel Gould PA [address] [facility] [address] [place] [address] [facility] Start: 07-06-2023 End: 07-06-2023 ambulatory 07/06/2023 12:00 PM EST Treatment [facility] [address] [place] [address] Phani Gay, PT [address] [place] [address] [facility] Start: 06-29-2023 End: 06-29-2023 ambulatory 06/29/2023 1:00 PM EST Treatment [facility] [address] [place] [address] Jyotsna Ward, RESEARCH RECRUITER [address] [place] [address] [facility] Start: 06-22-2023 End: 06-22-2023 ambulatory [facility] Comment on above: Arrived Start: 01-13-2023 Influenza vaccination Influenza Vacc ine (#1) [facility] Start: 01-31-2010 Screening for malign ant neoplasm of cervix [facility] Start: 01-31-2001 Screening for malign ant neoplasm of cervix Pap Smear [facility] Immunizations Immunization Date Immunization Notes Care Provider Fa cili 02-06-2018 influenza virus vacc ine, unspecified formulation Phani Gay PT Work Phone: [facility] Payers Date Payer Category Payer Private Health Insurance [employer] [id number] 2024 Unknown [id number] 2023 Self-pay [id number] [facility] [id number] 1980 Unknown [id number] 2.16.840.1.436211.3.579.2. 593 1980 Unknown [id number] 2.16.840.1.545542.3.579.2. 128 1980 Unknown [id number] 2.16.840.1.448852.3.579.2. 128 1980 Unknown [id number] 2.16.840.1.531997.3.579.2. 1285 1980 Unknown [id number] 2.16.840.1.986517.3.579.2. 1258 1980 Unknown [id number] 2.16.840.1.783066.3.579.2. 1258 1980 Unknown [id number] 2.16.840.1.360947.3.579.2. 1258 1980 Unknown [id number] 2.16.840.1.403208.3.579.2. 1258 1980 Unknown [id number] 2.16.840.1.373367.3.579.2. 1258 1980 Unknown [id number] 2.16.840.1.979981.3.579.2. 1258 1980 Unknown [id number] 2.16.840.1.688900.3.579.2. 1258 1980 Unknown [id number] 2.16.840.1.170232.3.579.2. 1258 1980 Unknown [id number] 2.16.840.1.983682.3.579.2. 1258 1980 Unknown [id number] 2.16.840.1.853501.3.579.2. 1258 1980 Unknown [id number] 2.16.840.1.879727.3.579.2. 1259 1959 Private Health Insurance [id number] Private Health Insurance [employer] [id number] [facility] [id number] 2.16.840.1.122608.3.579.2. 531 Social History Date Type Detail Facility Start: 05-26-2023 Tobacco smoking status NHIS Ex-smoker [facility] History of tobacco [...] Healthcare Start: 1980 Sex Assigned At Female [facility] Start: 08-17-2023 Tobacco smoking status [facility] Never smoked tobacco [facility] Start: 02-20-2024 End: 11-19-2024 Alcoholic beverage intake Ex-drinker (finding) [facility] How often do you get together with friends or relatives? Patient declined [facility] Do you belong to any clubs or organizations such as pentecostal groups, unions, fraternal or athletic groups, or [...] Jermain Sarabia MD - 11/19/2024 10:29 AM Argenis Sarabia MD - 11/19/2024 10:29 AM Argenis [...] effects. Continues to have fatigue. Seen by legal support specialist for menorrhagia and will have robotic BEN [...] need hormone replacement. documented in this encounter [facility] 10-29-2024 History of Presen t illness Narrative Reason for Appointment: Patient ID: Corrina Durand is a 44 y.o. female who presents for No chief complaint on file. Patient presents today for Pre Op appointment. Patient is scheduled to undergo Da Wendy assisted Laparoscopic Hysterectomy, possible exploratory laparotomy, possible BSO, possible cystoscopy on 11-27-[address] Nieto at [facility]. MEDICATIONS Current Outpatient Medications Medication Instructions [...] nursing note reviewed. Exam conducted with a veterinary laboratory technician present. Vitals: Estimated body mass index is [...] reviewed, and patient is to proceed to [facility] OR. Follow Up: Patient is to follow up at 1 & 6 weeks post operative to assess proper healing and recovery from procedure. Documented by Yolanda García LPN on behalf of: Vineet Nieto DO documented in this encounter [facility] 09-09-2024 History of Presen t illness Narrative [...] nursing note reviewed. Exam conducted with a veterinary laboratory technician present. Vitals: Estimated body mass index is [...] would like to proceed to OR at [facility] for partial Hysterectomy. Patient to talk with Super[employer] prior to leaving office and will setup Pre-Op appointment. Documented by Jessica Harris LPN on behalf of: Vineet Nieto DO documented in this encounter [facility] 08-20-2024 History of Presen t illness Narrative Associated Problem(s): Menorrhagia Continues to have heavy bleeding after ablation and resume iron supplement. Follow with legal support specialist. Associated Problem(s): Benign essential hypertension (CMS/HCC) BP [...] on iron supplement. Need to reschedule with legal support specialist. Review of Systems Respiratory: Negative for cough, [...] ablation and resume iron supplement. Follow with legal support specialist. Relevant Medications iron polysaccharides (ProFe) 391.3 (180 [...] Bilateral screening mammogram documented in this encounter [facility] 02-26-2024 History of Presen t illness Narrative [...] calculated from the following: Height as of 24: 5' 4 . Weight as of this encounter: 180 lb 12.8 oz. BP: 122/80 No LMP recorded. ASSESSMENT & PLAN ICD-10-CM 1. Postop check Z09 Post Op Follow Up: Patient presents today for a postop follow up after having a ablation performed at [facility] with Dr. Nieto. Patient doing well, with minimal cramps and discharge. Restrictions lifted Follow Up: Patient is to return to the office for annual exam unless needed otherwise. Documented by MANUEL Land on behalf of: MANUEL Land documented in this encounter [facility] 02-20-2024 History of Presen t illness Narrative Associated Problem(s): Palpitation Holter without abnormal rhythm and symptoms likely related to anemia. Monitor. If persists could try metoprolol. Associated Problem(s): Iron deficiency anemia due to chronic blood loss Hgb improved with iron supplement and continue. Follow with legal support specialist. Associated Problem(s): Benign essential hypertension (CMS/HCC) BP [...] and sinus tach. Patient had D&C with legal support specialist for menorrhagia. Hgb down to 10.9 from [...] with iron supplement and continue. Follow with legal support specialist. Benign essential hypertension (CMS/HCC) - Primary BP controlled and monitor PRN. Palpitation Holter without abnormal rhythm and symptoms likely related to anemia. Monitor. If persists could try metoprolol. documented in this encounter [facility] 01-17-2024 History of Presen t illness Narrative [...] in 140s. BP 144/80 today. Seen by legal support specialist last week and BP normal in office. [...] TSH T4, free documented in this encounter [facility] 01-10-2024 History of Presen t illness Narrative Reason for Appointment: Patient ID: Corrina Durand is a 43 y.o. female who presents for Post-op Visit Patient presents today for Post Op/Pre Op appointment. Patient is scheduled to undergo Endometrial Ablation with Christelle on 02/09/[address] Nieto at [facility]. MEDICATIONS Current Outpatient Medications Medication Instructions [...] nursing note reviewed. Exam conducted with a veterinary laboratory technician present. Vitals: Estimated body mass index is [...] having a D&C Hysteroscopy performed at [facility] with Dr. Nieto. Pathology results was [...] reviewed, and patient is to proceed to [facility] OR. Follow Up: Patient is to follow up between 1-2 weeks post operative to assess proper healing and recovery from procedure. Documented by Yolanda García LPN on behalf of: Vineet Nieto DO documented in this encounter [facility] Evaluation note Diagnosis Left shoulder pain, unspecified chronicity- Primary Shoulder stiffness, left Status post arthroscopy of left shoulder documented in this encounter [facility]* Diagnosis Left shoulder pain, unspecified chronicity- Primary Shoulder stiffness, left Status post arthroscopy of left shoulder Impingement of left shoulder documented in this encounter [facility] noteNo assessment information availableBelle[facility] Work Phone: Evaluation note* Diagnosis Benign essential hypertension (CMS/HCC)- Primary Essential hypertension, benign Palpitation Palpitations Iron deficiency anemia due to chronic blood loss Iron deficiency anemia secondary to blood loss (chronic) documented in this encounter [facility]* Diagnosis Coccydynia- Primary Other [...] following unspecified surgery documented in this encounter [facility]* Diagnosis Postop check Follow-up examination, following unspecified surgery Pre-op examination Menorrhagia with regular cycle Abnormal uterine bleeding (AUB) Pelvic pain in female Unspecified symptom associated with female genital organs documented in this encounter [facility]* Diagnosis Benign essential hypertension (CMS/HCC)- Primary Essential hypertension, benign Palpitation Palpitations documented in this encounter [facility]* Diagnosis Coccydynia- Primary Other [...] with irregular cycle documented in this encounter [facility]* Diagnosis Coccydynia- Primary Other [...] Low serum iron documented in this encounter [facility]* Diagnosis Coccydynia- Primary Other disorder [...] Pelvic pain Dysmenorrhea documented in this encounter [facility]* Diagnosis Coccydynia- Primary Other disorder [...] female climacteric states documented in this encounter [facility]* [...] Palpitation- Primary Palpitations documented in this encounter [facility] Narrative* Consultation (Routine) - Authorized Specialty Diagnoses / Procedures Referred By Georgina bynum Referred To Contact Physical Therapy Diagnoses S/P arthroscopy of left shoulder Procedures GA OFFICE/OUTPATIENT NEW HIGH MDM 60 MINUTES Daniel Gould PA [address] [place] [address] [place] [address] Phani Gay, PT [address] [place] [address] Referral ID Status Reason Start Date Expiration Date Visits Requested Visits Authorized [id number] Authorized Consult and Treat 06/09/2023 12/06/2023 30 30 [facility] Summary Purpose Family History No Family History Records FoundNo Family History Records FoundNo Family History Records FoundNo Family History Records Found Advance Directives Advance Directive Response Recorded Date/ Time Advance Directives No September 12, 2018 7:33pm Reason for Referral Specialty Diagnoses / Procedures Referred By Georgina bynum Referred To Contact Radiology Diagnoses Palpitation Procedures Holter monitor Jermain Sarabia MD [address] [place] [address] [facility] Referral ID Status Reason Start Date Expiration Date V isits Requested Visits Authorized [id number] Pending Review 01/17/2024 07/15/2024 1 1 Additional Source Comments INFORMATION SOURCE (unrecogn ized section and content) DATE CREATED AUTHOR 08/10/2021 [facility] DATE CREATED AUTHOR AUTHOR'S ORGANIZ ATION 12/29/2023 [facility] DATE CREATED AUTHOR AUTHOR'S ORGANIZ ATION 01/19/2024 [facility] DATE CREATED AUTHOR AUTHOR'S ORGANIZ ATION 11/23/2024 [facility] Care Teams (unrecognized sec tion and content) Substitute Teacher Relationship Specialty Start Date End Date Jermain Sarabia MD [address] [place] [phone] PCP - General Family Medicine 06/05/23 Substitute Teacher Relationship Specialty Start Date End Date Jermain Sarabia MD [address] [place] [address] PCP - General Family Medicine 06/05/23 Substitute Teacher Relationship Specialty Start Date End Date Jermain Sarabia MD [address] [place] [address] PCP - General Family Medicine 06/05/23 Team Status: Inactive Member Role Status Dates Vineet Nieto DO Attending Provider Active Start : December 22, 2023 End: December 22, 2023 Substitute Teacher Relationship Specialty Start Date End Date Jermain Sarabia MD [address] [place] [address] PCP - General Family Medicine 06/05/23 Substitute Teacher Relationship Specialty Start Date End Date Jermain Sarabia MD [address] [place] [address] PCP - General Family Medicine 06/05/23 Substitute Teacher Relationship Specialty Start Date End Date Jermain Sarabia MD [address] [place] [address] PCP - General Family Medicine 06/05/23 Substitute Teacher Relationship Specialty Start Date End Date Jermain Sarabia MD [address] [place] [address] PCP - General Family Medicine 06/05/23 Substitute Teacher Relationship Specialty Start Date End Date Jermain Sarabia MD [address] [place] [address] PCP - General Family Medicine 06/05/23 Substitute Teacher Relationship Specialty Start Date End Date Jermain Sarabia MD [address] [place] [address] PCP - General Family Medicine 06/05/23 Substitute Teacher Relationship Specialty Start Date End Date Jermain Sarabia MD [address] [place] [address] PCP - General Family Medicine 06/05/23 Substitute Teacher Relationship Specialty Start Date End Date Jermain Sarabia MD [address] [place] [address] PCP - General Family Medicine 06/05/23 Substitute Teacher Relationship Specialty Start Date End Date Jermain Sarabia MD [address] [place] [address] PCP - General Family Medicine 06/05/23 Substitute Teacher Relationship Specialty Start Date End Date Jermain Sarabia MD [address] [place] [address] PCP - General Family Medicine 06/05/23 Substitute Teacher Relationship Specialty Start Date End Date Jermain Sarabia MD [address] [place] [address] PCP - General Family Medicine 06/05/23 Substitute Teacher Relationship Specialty Start Date End Date Jermain Sarabia MD [address] [place] [address] PCP - General Family Medicine 06/05/23 Substitute Teacher Relationship Specialty Start Date End Date Jermain Sarabia MD [address] [place] [address] PCP - General Family Medicine 06/05/23 Substitute Teacher Relationship Specialty Start Date End Date Jermain Sarabia MD [address] [place] [address] PCP - General Family Medicine 06/05/23 Substitute Teacher Relationship Specialty Start Date End Date Jermain Sarabia MD [address] [place] [address] PCP - General Family Medicine 06/05/23 Substitute Teacher Relationship Specialty Start Date End Date Jermain Sarabia MD [address] [place] [address] PCP - General Family Medicine 06/05/23 Substitute Teacher Relationship Specialty Start Date End Date Jermain Sarabia MD [address] [place] [address] PCP - General Family Medicine 06/05/23 Substitute Teacher Relationship Specialty Start Date End Date Jermain Sarabia MD [address] [place] [address] PCP - General Family Medicine 06/05/23 Goals [...] BE BASED ON THE PRIMARY CLINICAL RECORDS. [facility] [employer] [facility]. provides no warranty or guarantee of the accuracy or completeness of information in this document.
[2024-11-27 06:26] LABS: Hematocrit 31.0 % (36.0-48.0); Hemoglobin 9.5 g/dL (12.0-16.0); Immature Granulocytes Abs Auto 0.01 10^3/uL (0.00-0.03); Immature Granulocytes Pct Auto 0.2 % (0.0-0.5); Lymphocytes Absolute Auto 1.4 10^3/uL (1.2-3.8); Mean Corpuscular HGB Conc 30.6 g/dL (29.9-35.2); Mean Corpuscular Hemoglobin 21.8 pg (26.7-34.0); Mean Corpuscular Volume 71.3 fL (81.0-99.0); Platelet Count 263 10^3/uL (150-450); Red Blood Count 4.35 10^6/uL (4.20-5.40); White Blood Count 5.0 10^3/uL (4.0-11.0)
[2024-11-27] MEDS: METRONIDAZOLE/SODIUM CHLORIDE 500 MG/100 ML PREMIX 100 MG IV ×2 (06:49→16:24)
[2024-11-27] MEDS: CIPROFLOXACIN 400 MG/200 ML D5W PREMIX 200 MG IV (07:37)
--- NOTE | 2024-11-27 09:36 | PM.ONB ---
Brief Operative Note Date of procedure: 11/27/24 Pre-op diagnosis general: chronic blood loss anemia, pelvic pain, dyspareunia, dysmenorrhea Post-op diagnosis: same as pre-op Procedure: NAME OF PROCEDURE: ? Robotic assisted laparoscopic hysterectomy with cystoscopy, bilateral salpingectomy PROCEDURE:? The patient was taken back to the operating room, where she was prepped and draped in the normal sterile fashion after being placed in the dorsal lithotomy position.? Patient?s anesthesia was found to be adequate.? Surgical timeout was performed using two patient identifiers.? SCDs were on and in place.? Two grams of Ancef were given prior to the surgery.? Sterile Loera catheter was inserted.? Standard size VCare was secured to the uterine cervix and the surgeon changed gloves.? Attention then was turned to the patient's abdomen, where a supraumbilical incision was then made.? Two S retractors were used to identify the patient?s fascia.? The fascia was then tented up using Heron clamps and the patient?s fascia was incised sharply.? Patient?s abdomen was identified and entered bluntly.? The patient had the trocar placed and a pneumoperitoneum was obtained.? Approximately 4 liters of CO2 gas was used.? The camera was then placed through the trocar.? At this time, two robot trocars were placed in the patient?s left and right side, two hand widths from the midline, and this was placed under direct visualization.? The patient?s tube on the right side was tented up and the vessel sealer was then used to come across the mesosalpinx, and this was carried down to the uterine ovarian ligament.? The vessel sealer was carried down serially to the broad ligament, to the area of the bladder flap, which was then created anteriorly, and the uterine arteries were skeletonized and sealed using the vessel sealer.? The colpotomy was made using the monopolar cautery on cut, and this was carried circumferentially, posteriorly to anteriorly, until the uterus was amputated.? The specimen was then removed intact through the vagina, without difficulty.? The vagina was then closed using two running V-Loc in a non-lock fashion.? The robot was undocked.? The abdomen was desufflated.? The skin defects were closed using 4-0 Vicryl.? Please note, the fascia was closed using 0 Vicryl.? Sponge, lap and needle counts were correct x2.? Patient was taken to recovery room in stable condition.? The patient was awakened by Anesthesia first.? Patient tolerated procedure well.??Please note left ovarian cystectomy was performed using the vessel sealer Anesthesia: KIM Surgeon: Aris Nieto Ticket Sales Agent: Mimi Lew Estimated blood loss (mL): 150 Pathology: other (uterus, cervix and tubes) Condition: stable Disposition: PACU Urinary Catheter Management Urinary Catheter Management Urethral: Cath placed during this visit: no
[2024-11-27] MEDS: HYDROMORPHONE HCL 0.5 MG/0.5 ML SYRINGE IV ×3 (10:20→10:40)
--- NOTE | 2024-11-27 10:42 | PC.NURSE ---
Medicated with Dilaudid as ordered; pillow placed under knees
[2024-11-27] MEDS: OXYCODONE HCL/ACETAMINOPHEN 5MG/325MG 2 TAB PO (14:11)
[2024-11-27 16:09] LABS: Hematocrit 29.7 % (36.0-48.0); Hemoglobin 9.1 g/dL (12.0-16.0); Immature Granulocytes Abs Auto 0.03 10^3/uL (0.00-0.03); Immature Granulocytes Pct Auto 0.3 % (0.0-0.5); Lymphocytes Absolute Auto 0.3 10^3/uL (1.2-3.8); Mean Corpuscular HGB Conc 30.6 g/dL (29.9-35.2); Mean Corpuscular Hemoglobin 21.8 pg (26.7-34.0); Mean Corpuscular Volume 71.1 fL (81.0-99.0); Platelet Count 266 10^3/uL (150-450); Red Blood Count 4.18 10^6/uL (4.20-5.40); White Blood Count 8.9 10^3/uL (4.0-11.0)
== END 2024-11-27 17:41 | disposition home or self-care (01) ==
LOC: SURGOUT 09:40 → MS 11:13
PROVIDERS: PCP Family Medicine; Visit Provider Obstetrics & Gynecology
PROC: (CPT 840; principal; 2024-11-27 07:30)
DX: N92.0 Excessive and frequent menstruation with regular cycle (principal); N94.10 Unspecified dyspareunia; N94.6 Dysmenorrhea, unspecified; R10.2 Pelvic and perineal pain; D50.0 Iron deficiency anemia secondary to blood loss (chronic); Z98.51 Tubal ligation status; I10 Essential (primary) hypertension
CPT/HCPCS: 58571; 36415; 84702; 85025; 88307; 94667; J0131; J0744; J1100; J1171; J1836; J1885; J2405; J2704